=== PATIENT | female | born 1940 | race African-American/Black ===

== ENCOUNTER 2017-10-29 00:03 | Inpatient (IN) | payer MEDICARE, BC ==
[~2017-10-29] VITALS: Ht 157.5 cm; Wt 91.3 kg
[2017-10-29] VITALS (22 sets, daily range): BP systolic 97–171; BP diastolic 42–59
[2017-10-29 00:45] LABS: BASOPHILS % (AUTO) 1.2 % (0.0-2.0); EOSINOPHILS % (AUTO) 0.6 % (0.0-3.0); HEMATOCRIT 27.8 % (37.0-47.0); HEMOGLOBIN 8.9 G/DL (12.0-16.0); LYMPHOCYTES % (AUTO) 14.5 % (20.0-45.0); MEAN CORPUSCULAR VOLUME 89 FL (80-99); NEUTROPHILS % (AUTO) 75.8 % (45.0-75.0); PLATELET COUNT 486 K/UL (150-450); RED BLOOD COUNT 3.13 M/UL (4.20-5.40); RED CELL DISTRIBUTION WIDTH 13.9 % (11.6-14.8); WHITE BLOOD COUNT 11.8 K/UL (4.8-10.8)
[2017-10-29 00:59] LABS: ANION GAP 9 mmol/L (5-15); BLOOD UREA NITROGEN 38 mg/dL (7-18); CALCIUM 9.4 MG/DL (8.5-10.1); CARBON DIOXIDE 28 MMOL/L (21-32); CHLORIDE 94 MMOL/L (98-107); CREATININE 2.8 MG/DL (0.55-1.30); POTASSIUM 4.6 MMOL/L (3.5-5.1); SODIUM 130 MMOL/L (136-145)
[2017-10-29] MEDS ORDERED: Acetaminophen 500mg (ES) tab ORAL ONE (01:00)
[2017-10-29 01:06] LABS: ALANINE AMINOTRANSFERASE 26 U/L (12-78); ALBUMIN 2.7 G/DL (3.4-5.0); ALBUMIN/GLOBULIN RATIO 0.5 (1.0-2.7); ALKALINE PHOSPHATASE 146 U/L (46-116); ASPARTATE AMINO TRANSFERASE 25 U/L (15-37); BILIRUBIN,TOTAL 0.7 MG/DL (0.2-1.0); CKMB 1.5 NG/ML (0.0-3.6); CREATINE KINASE 79 U/L (26-308)
[2017-10-29] MEDS ORDERED: Etomidate 40mg/20ml Inj IV ONE ×2 (01:30→16:34)
[2017-10-29] MEDS ORDERED: Zemuron 50mg/5ml Inj IV ONE ×2 (01:30→16:34)
--- NOTE | 2017-10-29 01:44 | Emergency Room Report ---
History of Present Illness General Chief Complaint: Dyspnea/Respdistress Source: Patient Present Illness HPI 77-year-old female brought in by EMS from outside facility or shortness of breath. Patient was allegedly just admitted recently to outside hospital for pneumonia. Denies history of COPD, asthma, CHF shortness of breath, repeatedly saying "help me" and "I can't breather." History of present illness otherwise limited due to severity of patient and possible altered mental status 2 to hypercapnia Allergies: Coded Allergies: No Known Allergies (Verified , 09/30/07) Patient History Limited by: medical condition Past Medical History: old chart reviewed Past Surgical History: unable to obtain Pertinent Family History: unable to obtain Social History: Denies: smoking, alcohol use, drug use Now: No Immunizations: UTD Reviewed Nursing Documentation: PMH: Agreed, PSxH: Agreed Nursing Documentation-PMH Hx Hypertension: Yes Hx Diabetes: Yes Hx Cancer: Yes - LEFT BREAST LUMPECTOMY Review of Systems All Other Systems: limited - AMS Physical Exam Vital Signs Date Time Temp Pulse Resp B/P (MAP) Pulse Ox O2 Delivery O2 Flow Rate FiO2 10/29/17 00:16 101.1 95 26 170/48 84 Nasal Cannula 3.0 Sp02 EP Interpretation: reviewed, abnormal General Appearance: normal inspection, alert, non-toxic, moderate distress, obese Head: normocephalic, atraumatic Eyes: bilateral eye PERRL, bilateral eye EOMI ENT: normal ENT inspection, hearing grossly normal, normal pharynx, no angioedema, normal voice, TMs + canals normal, uvula midline, moist mucus membranes Neck: normal inspection, full range of motion, supple, thyroid normal, no meningismus, no bony tend Respiratory: normal inspection, respiratory distress, decreased breath sounds, accessory muscle use, rhonchi Cardiovascular #1: regular rate, rhythm, no edema, no JVD, normal capillary refill Gastrointestinal: normal inspection, normal bowel sounds, non tender, soft, no mass, no peritonitis, non-distended, no guarding, no hernia, no pulsatile mass Genitourinary: no CVA tenderness Musculoskeletal: normal inspection, back normal, normal range of motion, no calf tenderness, pelvis stable, Neal's Sign negative Neurologic: normal inspection, alert, oriented x3, responsive, 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 as tested, motor strength/tone normal, cerebellar normal, normal gait, speech normal Psychiatric: normal inspection, judgement/insight normal, mood/affect normal, no suicidal/homicidal ideation, no delusions Skin: normal inspection, normal color, no rash Lymphatic: normal inspection, no adenopathy Procedures Critical Care Time Critical Care Time CC time 40 min Critical care time endorsed for this patient for AMS likely d/t sepsis/PNA Critical care time includes review of laboratory tests, imaging, review of EMR, review of paperwork from SNF (if available), discussion with patient and family (if available), review of code status/POLS (if available). Critical care time also likely includes assessment of fluid status, stabilization of vital signs, selection and dosing of appropriate antibiotics, discussion with PMD/attending hospitalist/program eligibility specialist. Critical care time does not include any procedures which are documented elsewhere in this EMR. Intubation Intubation : Consent: Emergent Intubation Method: orotracheal Tube Size (cm): 7.5 Medications: Etomidate, Rocuronium Breath Sounds after Intubation: equal Intubation Complications: no complications Post Intubation Xray: Yes Attempts: One Patient Tolerated: Well Complications: None Progress Patient maintained O2 sat with nasal cannula supplemental O2 at 10L Medical Decision Making Diagnostic Impression: Primary Impression: Dyspnea Qualified Codes: R06.00 - Dyspnea, unspecified Additional Impressions: Sepsis Qualified Codes: A41.9 - Sepsis, unspecified organism PNA (pneumonia) Qualified Codes: J18.9 - Pneumonia, unspecified organism Respiratory failure Qualified Codes: J96.01 - Acute respiratory failure with hypoxia; J96.02 - Acute respiratory failure with hypercapnia CKD (chronic kidney disease) Qualified Codes: N18.9 - Chronic kidney disease, unspecified Acute respiratory acidosis ER Course Vital signs significant for fever, tachycardia and hypoxia, obtaining O2 sat of 90% with 10 L nonrebreather Sepsis criteria met ABG shows acute respiratory acidosis due to hypoxia and hypercapnia patient with declining mental status, requiring urgent intubation; high rate of 40 set on vent given hypercapnia and acidosis sHe was given empiric antibiotics for bilateral pneumonia on ED interpretation of x-ray Cultures are pending Labs also significant for mild leukocytosis, an elevated creatinine. Unknown if she has CKD history however the MR shows previous elevations in serum creatinine ECG showing ST depressions in inferior leads likely demand ischemia due to sepsis Patient was not given for 30 mL per KG fluid bolus processes protocol due to unknown EF and elderly age Endorsed to Dr. Sotomayor for ICU admission at 115am Sepsis reassessment 147am Following intubation HR 85, BP 134/55, temp 99, RR 40 on O2 sat 100% EKG Diagnostic Results Rate: tachycardiac Rhythm: NSR ST Segments: other - ?ST depressions in 2, 3, AVF Rhythm Strip Diag. Results EP Interpretation: yes Rate: 86 Rhythm: NSR, no ectopy Chest X-Ray Diagnostic Results Chest X-Ray Diagnostic Results : Chest X-Ray Ordered: Yes # of Views/Limited/Complete: 1 View Indication: Shortness of Breath EP Interpretation: Yes Interpretation: no pneumothorax, other - Bilateral PNA Last Vital Signs Date Time Temp Pulse Resp B/P (MAP) Pulse Ox O2 Delivery O2 Flow Rate FiO2 10/29/17 00:16 101.1 95 26 170/48 84 Nasal Cannula 3.0 Status: improved Disposition: ADMITTED INPATIENT Condition: Critical Referrals: NON PHYSICIAN (PCP) ANDREI BLACK M.D. Oct 29, 2017 01:44
[2017-10-29] MEDS ORDERED: UNOBMED (02:13)
[2017-10-29] MEDS ORDERED: Acetaminophen 650 MG SUPP RECTAL ONE (02:15)
[2017-10-29] MEDS ORDERED: Propofol 200mg/20ml IV ONE ×2 (03:00→03:15)
[2017-10-29 04:05] LABS: APPEARANCE,URINE CLEAR; BILIRUBIN, URINE NEGATIVE (NEGATIVE); COLOR,URINE PALE YELLOW; GLUCOSE, URINE (UA) NEGATIVE (NEGATIVE); KETONES,URINE NEGATIVE (NEGATIVE); LEUKOCYTE ESTERASE ,URINE NEGATIVE (NEGATIVE); NITRITE,URINE NEGATIVE (NEGATIVE); PH,URINE 5 (4.5-8.0); PROTEIN,URINE 2+ (NEGATIVE); UROBILINOGEN,URINE NORMAL MG/DL (0.0-1.0)
[2017-10-29] MEDS: 1/2NS w/KCl 20mEq 1000ml 1,000 ML IV SCH ×2 (09:49→21:58)
[2017-10-29] MEDS: Pantoprazole Inj IVP SCH (09:50)
[2017-10-29] MEDS: Cefepime HCl 1 GM in NS 55 ML IVPB SCH (09:50)
[2017-10-29] MEDS: Heparin 5000 units/ml inj SUBQ SCH ×2 (09:52→20:57)
[2017-10-29] MEDS: Albuterol ud Inhalation HHN SCH ×4 (11:00→23:13)
[2017-10-29] MEDS ORDERED: Vancomycin 1.5 GM/D5W 250ML IVPB ONE (11:00)
--- NOTE | 2017-10-29 12:32 | Diagnostic Imaging Report ---
Indication: Status post endotracheal tube placement Technique: One view of the chest Comparison: One hour earlier Findings: Interim endotracheal intubation, endotracheal tube tip in good position approximately 4 cm above the norma. Bilateral extensive and diffuse interstitial and alveolar disease persists. Suspect small bilateral pleural effusions. The heart is enlarged Impression: Satisfactory endotracheal intubation Stable diffuse bilateral parenchymal disease and small bilateral pleural effusions
--- NOTE | 2017-10-29 12:34 | Diagnostic Imaging Report ---
Indication: Shortness of breath Technique: One view of the chest Comparison: 09/29/2007 Findings: Interim development of bilateral diffuse interstitial and airspace opacities. The heart is borderline enlarged. There are small bilateral pleural effusions. Surgical clips are seen in the left axilla Impression: Bilateral diffuse interstitial and alveolar airspace infiltrates versus edema. Small bilateral pleural effusions
--- NOTE | 2017-10-29 15:30 | History and Physical Report ---
DATE OF ADMISSION: 10/29/2017 CHIEF COMPLAINT: Shortness of breath. HISTORY OF PRESENT ILLNESS: This is a 77-year-old female, who was brought in by the paramedics from home. The patient was just discharged from [facility] to her home. I do not have any medical records and there is no previous history. The patient herself is unable to converse. The patient developed full-blown respiratory failure and was intubated. PAST MEDICAL HISTORY: Currently unknown. HOME MEDICATIONS: Currently unavailable. ALLERGIES: No known drug allergies. FAMILY HISTORY: Unable to obtain. SOCIAL HISTORY: Unable to obtain. REVIEW OF SYSTEMS: Unable to obtain. PHYSICAL EXAMINATION: GENERAL: This is an elderly female, who is on a ventilator. VITAL SIGNS: Blood pressure is 97/55, pulse 72, respirations 30, and temperature 98.8. HEENT: Head is normocephalic and atraumatic. Pupils are equal, round, and reactive to light and accommodation consensually. NECK: Supple. Trachea midline. There was no lymphadenopathy or thyromegaly. LUNGS: Bilateral rhonchi. HEART: Regular rate and rhythm without rubs, murmurs, or gallops. ABDOMEN: Soft and nontender. Bowel sounds were active. EXTREMITIES: No clubbing, cyanosis, or edema. NEUROLOGIC: She is alert. There were no gross focal findings. LABORATORY AND ANCILLARY DATA: On admission, white count 11,800, hematocrit 27.8. Sodium 130, potassium 4.6, BUN 38, creatinine 2.8, and glucose 131. Troponin level 0.21. Lactic acid 1.8. Urinalysis negative. Chest x-ray reported to show bilateral infiltrates. ABGs done in the ED showed acute respiratory acidosis and hypoxia. A repeat ABGs are pending. EKG in the ED showed ST depressions in inferior leads. ASSESSMENT: 1. Acute respiratory failure due to pneumonia. 2. Bilateral pneumonia. PLAN: 1. IV antibiotics. 2. IV fluids. 3. Pulmonary consult. 4. Obtain medical records. Mic Maynard M.D. DR: HELLEN JOB#: [id number] CC:
--- NOTE | 2017-10-29 17:30 | Consultation ---
DATE OF CONSULTATION: 10/29/2017 PULMONARY CONSULTATION CONSULTING PHYSICIAN: Jose F Benitez M.D. REFERRING PHYSICIAN: Mic Maynard M.D. REASON FOR CONSULTATION: Respiratory failure, ventilatory management. HISTORY OF PRESENT ILLNESS: The patient is a 77-year-old female brought in by ambulance for increasing shortness of breath from a [facility]. The patient recently admitted for pneumonia. The patient has no underlying history of obstructive lung disease. The patient was noted to be in respiratory distress and noted to have significant hypercapnia. In the emergency room, the patient was noted to be significantly altered and admitted. The patient required intubation. Currently, the patient is in the ICU and I was called to assist, evaluate, and recommend further. The patient is unable to give much in the way of history. History was obtained from chart review, group home chart, and on discussion with the primary medical doctor. The patient's overall care discussed and reviewed. PAST MEDICAL HISTORY: Notable for underlying cardiac disease, history of breast cancer, history of diabetes, unclear as to vaccination history, history of hypertension, and prior history of pneumonia. PAST SURGICAL HISTORY: Notable for left breast lumpectomy. MEDICATIONS: Reviewed. ALLERGIES: Reviewed. SOCIAL HISTORY: The patient's habits unclear. No clear smoking and drinking per chart review. REVIEW OF SYSTEMS: Unobtainable due to the patient's present state. PHYSICAL EXAMINATION: VITAL SIGNS: An elderly female, poorly responsive. VITAL SIGNS: 142/80 respiratory rate 30, saturations 100% currently on 80% FiO2, temperature 98.8. T-max 99.8. HEENT: Negative. Orally intubated. NECK: Supple. No jugular venous distention. LUNGS: Scattered rhonchi. Moderate air entry. Somewhat reduced. CARDIAC: Normal S1 and S2. Regular rate and rhythm. Somewhat distant without clear murmurs, rubs, or gallops. ABDOMEN: Soft, nontender, nondistended. EXTREMITIES: No cyanosis or clubbing. NEUROLOGIC: Poorly responsive at present. SKIN: Noted and reviewed. LABORATORY DATA: Reviewed. White count 11.8, hemoglobin 8.9, hematocrit 27.8, and platelets 246,000. Sodium 130, potassium 4.6, BUN 38, creatinine 2.8. Albumin 2.7. Blood gases, pH 7.322, pCO2 44, pO2 191, bicarbonate 22, and saturations 98%. The EKG initially with sinus tachycardia with some T wave depressions possibly in the inferior leads. The x-ray with bilateral pneumonia. IMPRESSION: 1. Respiratory failure. 2. Bilateral pneumonia, possible aspiration, possible group home-acquired. 3. Hypoxemia. 4. Profound respiratory acidosis. 5. Acute respiratory failure, now mostly compensated. 6. Chronic renal failure. 7. Severe protein-calorie malnutrition. 8. Hyponatremia of unclear etiology. 9. Mild leukocytosis, possible sepsis. 10. Anemia. 11. Thrombocytosis. RECOMMENDATIONS: 1. Supportive care. 2. Ventilatory management and hyperventilate, presently on AC of 30, with adequate pH, we will reduce that pending reevaluation. 3. IV hydration. 4. Antibiotics started with Levaquin only. We will give additional IV antibiotics for group home pathogens. 5. Nutritional support. 6. Obtain dietary evaluation. 7. Place the patient on subcutaneous heparin. 8. Obtain venous ultrasound. 9. Follow up x-ray. 10. Follow up ABG.. 11. Sedation as needed. 12. Monitor in ICU. Jose F Benitez M.D. DR: KHOA JOB#: [id number] CC: RAFIA
--- NOTE | 2017-10-29 18:12 | Cardiology Report ---
APPROVED REPORT EXAM: Two-dimensional and M-mode echocardiogram with Doppler and color Doppler. INDICATION SOB M-Mode DIMENSIONS IVSd1.3 (0.7-1.1cm)Left Atrium (MM)2.9 (1.6-4.0cm) LVDd4.0 (3.5-5.6cm)Aortic Root3.3 (2.0-3.7cm) PWd0.9 (0.7-1.1cm)Aortic Cusp Exc.1.8 (1.5-2.0cm) IVSs1.8 cm LVDs2.4 (2.5-4.0cm) PWs1.1 cm Normal left ventricular chamber size, systolic function and wall motion. Left ventricular ejection fraction estimated to 70 %. No evidence of ventricular hypertrophy . No evidence of pericardial effusion. All other cardiac chamber sizes is within normal limits. Focal aortic valve sclerosis with adequate cusp excursion. Thickened mitral valve leaflets with normal excursion. Mitral annulus and aortic root calcification. Pulmonic valve not well visualized. Normal tricuspid valve structure. IVC dilated at size 2.4 without physiologic collapse . A color flow and spectral Doppler study was performed and revealed: Mild aortic insufficiency . Mild to moderate mitral regurgitation. Mitral diastolic velocities suggest reduced left ventricular relaxation c/w mild LV diastolic dysfunction (Grade I ) Mild tricuspid regurgitation. Tricuspid systolic velocities suggests peak right ventricular systolic pressure of 47 mmHg ,consistent with moderate, pulmonary hypertension. No Pulmonic regurgitation present.
[2017-10-30] VITALS (18 sets, daily range): BP systolic 99–150; BP diastolic 44–77
[2017-10-30] MEDS: Albuterol ud Inhalation HHN SCH ×6 (03:00→23:39)
[2017-10-30 04:48] LABS: HEMATOCRIT 23.5 % (37.0-47.0); HEMOGLOBIN 7.6 G/DL (12.0-16.0); MEAN CORPUSCULAR VOLUME 89 FL (80-99); PLATELET COUNT 387 K/UL (150-450); RED BLOOD COUNT 2.63 M/UL (4.20-5.40); RED CELL DISTRIBUTION WIDTH 14.2 % (11.6-14.8); WHITE BLOOD COUNT 10.2 K/UL (4.8-10.8)
[2017-10-30 05:09] LABS: ALANINE AMINOTRANSFERASE 43 U/L (12-78); ALBUMIN 2.2 G/DL (3.4-5.0); ALBUMIN/GLOBULIN RATIO 0.4 (1.0-2.7); ALKALINE PHOSPHATASE 121 U/L (46-116); ANION GAP 9 mmol/L (5-15); ASPARTATE AMINO TRANSFERASE 49 U/L (15-37); BILIRUBIN,TOTAL 0.5 MG/DL (0.2-1.0); BLOOD UREA NITROGEN 47 mg/dL (7-18); CARBON DIOXIDE 25 MMOL/L (21-32); CHLORIDE 96 MMOL/L (98-107); CREATININE 2.9 MG/DL (0.55-1.30); POTASSIUM 5.1 MMOL/L (3.5-5.1); SODIUM 130 MMOL/L (136-145)
[2017-10-30] MEDS ORDERED: Vancomycin 1gm inj IVPB ONE (05:59)
[2017-10-30] MEDS ORDERED: Vancomycin 1gm in D5W 275ml IVPB ONE (06:00)
--- NOTE | 2017-10-30 08:37 | Critical Care Progress Note ---
Assessment/Plan Assessment/Plan IMPRESSION: 1. Respiratory failure. 2. Bilateral pneumonia, possible aspiration, possible [facility]-acquired. 3. Hypoxemia. 4. Profound respiratory acidosis. 5. Acute respiratory failure, now mostly compensated. 6. Chronic renal failure. 7. Severe protein-calorie malnutrition. 8. Hyponatremia of unclear etiology. 9. Mild leukocytosis, possible sepsis. 10. Anemia. 11. Thrombocytosis. RECOMMENDATIONS: 1. Supportive care. 2. Ventilatory support off 3. IV hydration- hold for now 4. Antibiotics and monitor cultures 5. Nutritional support. 6. Obtain dietary evaluation and speech 7. subcutaneous heparin. 8. noted venous ultrasound. 9. Follow up x-ray. for change 10. Follow up ABG and monitor acid base 11. transfuse 12. Monitor in ICU. Critical Care - Subjective I&O: Intake and Output 10/29/17 10/30/17 19:00 07:00 Intake Total 980 ml 900 ml Output Total 375 ml 455 ml Balance 605 ml 445 ml IV Total 980 ml 900 ml Output Urine Total 375 ml 455 ml # Bowel Movements 3 3 Critical Care - Objective CXR: bilateral infiltrates ET-Tube: 7.5 ET Position: 24 Last 24 Hour Vital Signs Date Time Temp Pulse Resp B/P (MAP) Pulse Ox O2 Delivery O2 Flow Rate FiO2 10/30/17 08:00 98.0 85 20 135/77 99 Nasal Cannula 2.0 10/30/17 07:12 84 20 100 Nasal Cannula 4.0 36 10/30/17 07:00 81 23 140/49 100 Nasal Cannula 2.0 10/30/17 06:49 77 20 100 Nasal Cannula 4.0 36 10/30/17 06:45 76 20 Nasal Cannula 4.0 36 10/30/17 06:00 77 19 120/44 100 Nasal Cannula 2.0 10/30/17 05:00 79 23 122/47 99 Nasal Cannula 2.0 10/30/17 04:00 97.8 80 23 135/50 99 Nasal Cannula 2.0 10/30/17 04:00 80 10/30/17 03:27 Nasal Cannula 3.0 32 10/30/17 03:27 Nasal Cannula 4.0 36 10/30/17 03:00 79 19 122/46 100 Nasal Cannula 2.0 10/30/17 02:00 79 17 121/51 100 Nasal Cannula 2.0 10/30/17 01:00 82 17 99/46 100 Nasal Cannula 2.0 10/30/17 00:00 88 10/30/17 00:00 98.2 88 23 138/55 98 Nasal Cannula 2.0 10/29/17 23:14 86 21 100 Nasal Cannula 4.0 36 10/29/17 23:10 36 10/29/17 23:10 83 18 100 Nasal Cannula 3.0 32 10/29/17 23:00 81 21 145/54 100 Nasal Cannula 2.0 10/29/17 22:00 80 17 126/42 100 Nasal Cannula 2.0 10/29/17 21:00 85 20 117/52 99 Nasal Cannula 2.0 10/29/17 20:00 98.6 86 21 142/47 100 Nasal Cannula 2.0 10/29/17 20:00 86 10/29/17 19:24 86 19 100 Room Air 21 10/29/17 19:07 81 16 100 Room Air 21 10/29/17 19:07 36 10/29/17 19:00 81 20 Nasal Cannula 4.0 36 10/29/17 19:00 80 20 144/59 100 Nasal Cannula 2.0 10/29/17 16:00 82 10/29/17 14:53 82 16 98 Nasal Cannula 5.0 40 10/29/17 14:47 40 10/29/17 14:47 82 18 100 Venturi Mask 8.0 40 10/29/17 13:15 84 30 100 10/29/17 12:00 40 10/29/17 12:00 77 10/29/17 11:50 81 31 100 10/29/17 09:15 86 34 100 Labs: Labs Test 10/29/17 00:29 10/29/17 00:49 10/29/17 02:35 10/29/17 03:55 White Blood Count 11.8 K/UL (4.8-10.8) Red Blood Count 3.13 M/UL (4.20-5.40) Hemoglobin 8.9 G/DL (12.0-16.0) Hematocrit 27.8 % (37.0-47.0) Mean Corpuscular Volume 89 FL (80-99) Mean Corpuscular Hemoglobin 28.6 PG (27.0-31.0) Mean Corpuscular Hemoglobin Concent 32.2 G/DL (32.0-36.0) Red Cell Distribution Width 13.9 % (11.6-14.8) Platelet Count 486 K/UL (150-450) Mean Platelet Volume 6.4 FL (6.5-10.1) Neutrophils (%) (Auto) 75.8 % (45.0-75.0) Lymphocytes (%) (Auto) 14.5 % (20.0-45.0) Monocytes (%) (Auto) 8.0 % (1.0-10.0) Eosinophils (%) (Auto) 0.6 % (0.0-3.0) Basophils (%) (Auto) 1.2 % (0.0-2.0) Sodium Level 130 MMOL/L (136-145) Potassium Level 4.6 MMOL/L (3.5-5.1) Chloride Level 94 MMOL/L (98-107) Carbon Dioxide Level 28 MMOL/L (21-32) Anion Gap 9 mmol/L (5-15) Blood Urea Nitrogen 38 mg/dL (7-18) Creatinine 2.8 MG/DL (0.55-1.30) Estimat Glomerular Filtration Rate mL/min (>60) Glucose Level 131 MG/DL (74-106) Lactic Acid Level 1.80 mmol/L (0.66-2.22) Calcium Level 9.4 MG/DL (8.5-10.1) Total Bilirubin 0.7 MG/DL (0.2-1.0) Aspartate Amino Transf (AST/SGOT) 25 U/L (15-37) Alanine Aminotransferase (ALT/SGPT) 26 U/L (12-78) Alkaline Phosphatase 146 U/L (46-116) Total Creatine Kinase 79 U/L (26-308) Creatine Kinase MB 1.5 NG/ML (0.0-3.6) Creatine Kinase MB Relative Index 1.8 Troponin I 0.021 ng/mL (0.000-0.056) Total Protein 8.6 G/DL (6.4-8.2) Albumin 2.7 G/DL (3.4-5.0) Globulin 5.9 g/dL Albumin/Globulin Ratio 0.5 (1.0-2.7) Triglycerides Level 76 MG/DL (30-150) Arterial Blood pH 7.050 (7.350-7.450) 7.519 (7.350-7.450) Arterial Blood Partial Pressure CO2 102.8 mmHg (35.0-45.0) 29.6 mmHg (35.0-45.0) Arterial Blood Partial Pressure O2 68.5 mmHg (75.0-100.0) 423.2 mmHg (75.0-100.0) Arterial Blood HCO3 27.8 mmol/L (22.0-26.0) 23.6 mmol/L (22.0-26.0) Arterial Blood Oxygen Saturation 84.6 % (92.0-98.0) 99.4 % (92.0-98.0) Arterial Blood Base Excess -4.3 1.1 Nishant Test Positive Positive Urine Color Pale yellow Urine Appearance Clear Urine pH 5 (4.5-8.0) Urine Specific Rosebud 1.010 (1.005-1.035) Urine Protein 2+ (NEGATIVE) Urine Glucose (UA) Negative (NEGATIVE) Urine Ketones Negative (NEGATIVE) Urine Occult Blood Negative (NEGATIVE) Urine Nitrite Negative (NEGATIVE) Urine Bilirubin Negative (NEGATIVE) Urine Urobilinogen Normal MG/DL (0.0-1.0) Urine Leukocyte Esterase Negative (NEGATIVE) Urine RBC 0 /HPF (0 - 2) Urine WBC 0-2 /HPF (0 - 2) Urine Squamous Epithelial Cells Few /LPF (NONE/OCC) Urine Bacteria Few /HPF (NONE) Test 10/29/17 07:00 10/29/17 09:30 10/29/17 12:20 10/30/17 04:00 Arterial Blood pH 7.322 (7.350-7.450) 7.478 (7.350-7.450) Arterial Blood Partial Pressure CO2 44.6 mmHg (35.0-45.0) 35.3 mmHg (35.0-45.0) Arterial Blood Partial Pressure O2 191.1 mmHg (75.0-100.0) 127.6 mmHg (75.0-100.0) Arterial Blood HCO3 22.6 mmol/L (22.0-26.0) 25.6 mmol/L (22.0-26.0) Arterial Blood Oxygen Saturation 98.9 % (92.0-98.0) 98.3 % (92.0-98.0) Arterial Blood Base Excess -3.4 2.0 Nishant Test Positive Positive Magnesium Level 1.7 MG/DL (1.8-2.4) White Blood Count 10.2 K/UL (4.8-10.8) Red Blood Count 2.63 M/UL (4.20-5.40) Hemoglobin 7.6 G/DL (12.0-16.0) Hematocrit 23.5 % (37.0-47.0) Mean Corpuscular Volume 89 FL (80-99) Mean Corpuscular Hemoglobin 28.8 PG (27.0-31.0) Mean Corpuscular Hemoglobin Concent 32.2 G/DL (32.0-36.0) Red Cell Distribution Width 14.2 % (11.6-14.8) Platelet Count 387 K/UL (150-450) Mean Platelet Volume 6.5 FL (6.5-10.1) Neutrophils (%) (Auto) % (45.0-75.0) Lymphocytes (%) (Auto) % (20.0-45.0) Monocytes (%) (Auto) % (1.0-10.0) Eosinophils (%) (Auto) % (0.0-3.0) Basophils (%) (Auto) % (0.0-2.0) Sodium Level 130 MMOL/L (136-145) Potassium Level 5.1 MMOL/L (3.5-5.1) Chloride Level 96 MMOL/L (98-107) Carbon Dioxide Level 25 MMOL/L (21-32) Anion Gap 9 mmol/L (5-15) Blood Urea Nitrogen 47 mg/dL (7-18) Creatinine 2.9 MG/DL (0.55-1.30) Estimat Glomerular Filtration Rate mL/min (>60) Glucose Level 99 MG/DL (74-106) Calcium Level 9.0 MG/DL (8.5-10.1) Total Bilirubin 0.5 MG/DL (0.2-1.0) Aspartate Amino Transf (AST/SGOT) 49 U/L (15-37) Alanine Aminotransferase (ALT/SGPT) 43 U/L (12-78) Alkaline Phosphatase 121 U/L (46-116) Total Protein 7.3 G/DL (6.4-8.2) Albumin 2.2 G/DL (3.4-5.0) Globulin 5.1 g/dL Albumin/Globulin Ratio 0.4 (1.0-2.7) Random Vancomycin Level 16.6 ug/mL Objective: more alert HEENT: Negative. Orally intubated. NECK: Supple. No jugular venous distention. LUNGS: Some rhonchi. Moderate air entry. reduced. CARDIAC: Normal S1 and S2. Regular rate and rhythm. Somewhat distant without clear murmurs, rubs, or gallops. ABDOMEN: Soft, nontender, nondistended. no HSM EXTREMITIES: No cyanosis or clubbing. NEUROLOGIC: Poorly responsive at present. SKIN: Noted and reviewed. Micro: Microbiology Date/Time Source Procedure Growth Status 10/29/17 00:35 Blood Blood Culture - Preliminary NO GROWTH AFTER 24 HOURS Resulted 10/29/17 00:29 Blood Blood Culture - Preliminary NO GROWTH AFTER 24 HOURS Resulted 10/29/17 11:50 Sputum Gram Stain Pending Resulted 10/29/17 11:50 Sputum Sputum Culture - Preliminary NO GROWTH Resulted 10/29/17 03:55 Nasal Nares Influenza Types A,B Antigen (QIANA) - Final Complete Accucheck: 128 LOGAN PENN Oct 30, 2017 08:37
[2017-10-30] MEDS: Pantoprazole Inj IVP SCH (08:51)
[2017-10-30] MEDS: Heparin 5000 units/ml inj SUBQ SCH (08:52)
[2017-10-30] MEDS: Cefepime HCl 1 GM in NS 55 ML IVPB SCH (09:41)
--- NOTE | 2017-10-30 10:10 | Diagnostic Imaging Report ---
Indication: Reason For Exam: SOB Technique: One view of the chest Comparison: 10/29/2017 Findings: Again demonstrated is diffuse bilateral interstitial and airspace disease. This appears mostly improved, with in particular decreased consolidation in the left upper lung, although there is suggestion of slight worsening at the left lung base. Left-sided pleural fluid persistent. Heart remains borderline enlarged. The endotracheal tube has been removed Impression: Diffuse persistent bilateral interstitial and alveolar infiltrates versus edema, with overall slight improvement in general, but slight worsening of the left lung base Interim endotracheal extubation
--- NOTE | 2017-10-30 11:38 | General Progress Note ---
Assessment/Plan Assessment/Plan Resp. Failure - extubated. Severe anemia ? etiol. R/o GIB. Transfuse. OK for Tele. Subjective Allergies: Coded Allergies: No Known Allergies (Verified , 09/30/07) Subjective Extubated Objective Last 24 Hour Vital Signs Date Time Temp Pulse Resp B/P (MAP) Pulse Ox O2 Delivery O2 Flow Rate FiO2 10/30/17 11:23 87 20 98 Nasal Cannula 3.0 32 10/30/17 11:11 83 20 98 Nasal Cannula 3.0 32 10/30/17 11:00 83 16 133/55 98 Nasal Cannula 2.0 10/30/17 10:00 84 18 132/59 95 Nasal Cannula 2.0 10/30/17 09:00 82 19 141/49 100 Nasal Cannula 2.0 10/30/17 08:00 98.0 85 20 135/77 99 Nasal Cannula 2.0 10/30/17 08:00 88 10/30/17 07:12 84 20 100 Nasal Cannula 4.0 36 10/30/17 07:00 81 23 140/49 100 Nasal Cannula 2.0 10/30/17 06:49 77 20 100 Nasal Cannula 4.0 36 10/30/17 06:45 76 20 Nasal Cannula 4.0 36 10/30/17 06:00 77 19 120/44 100 Nasal Cannula 2.0 10/30/17 05:00 79 23 122/47 99 Nasal Cannula 2.0 10/30/17 04:00 97.8 80 23 135/50 99 Nasal Cannula 2.0 10/30/17 04:00 80 10/30/17 03:27 Nasal Cannula 3.0 32 10/30/17 03:27 Nasal Cannula 4.0 36 10/30/17 03:00 79 19 122/46 100 Nasal Cannula 2.0 10/30/17 02:00 79 17 121/51 100 Nasal Cannula 2.0 10/30/17 01:00 82 17 99/46 100 Nasal Cannula 2.0 10/30/17 00:00 88 10/30/17 00:00 98.2 88 23 138/55 98 Nasal Cannula 2.0 10/29/17 23:14 86 21 100 Nasal Cannula 4.0 36 10/29/17 23:10 36 10/29/17 23:10 83 18 100 Nasal Cannula 3.0 32 10/29/17 23:00 81 21 145/54 100 Nasal Cannula 2.0 10/29/17 22:00 80 17 126/42 100 Nasal Cannula 2.0 10/29/17 21:00 85 20 117/52 99 Nasal Cannula 2.0 10/29/17 20:00 98.6 86 21 142/47 100 Nasal Cannula 2.0 10/29/17 20:00 86 10/29/17 19:24 86 19 100 Room Air 21 10/29/17 19:07 81 16 100 Room Air 21 10/29/17 19:07 36 10/29/17 19:00 81 20 Nasal Cannula 4.0 36 10/29/17 19:00 80 20 144/59 100 Nasal Cannula 2.0 10/29/17 16:00 82 10/29/17 14:53 82 16 98 Nasal Cannula 5.0 40 10/29/17 14:47 40 10/29/17 14:47 82 18 100 Venturi Mask 8.0 40 10/29/17 13:15 84 30 100 10/29/17 12:00 40 10/29/17 12:00 77 10/29/17 11:50 81 31 100 Intake and Output 10/29/17 10/30/17 19:00 07:00 Intake Total 980 ml 900 ml Output Total 375 ml 455 ml Balance 605 ml 445 ml IV Total 980 ml 900 ml Output Urine Total 375 ml 455 ml # Bowel Movements 3 3 Laboratory Tests 10/29/17 12:20: Arterial Blood pH 7.478H, Arterial Blood Partial Pressure CO2 35.3, Arterial Blood Partial Pressure O2 127.6H, Arterial Blood HCO3 25.6, Arterial Blood Oxygen Saturation 98.3H, Arterial Blood Base Excess 2.0, Nishant Test Positive 10/30/17 04:00: White Blood Count 10.2, Red Blood Count 2.63L, Hemoglobin 7.6L, Hematocrit 23.5L , Mean Corpuscular Volume 89, Mean Corpuscular Hemoglobin 28.8, Mean Corpuscular Hemoglobin Concent 32.2, Red Cell Distribution Width 14.2, Platelet Count 387, Mean Platelet Volume 6.5, Neutrophils (%) (Auto) , Lymphocytes (%) ( Auto) , Monocytes (%) (Auto) , Eosinophils (%) (Auto) , Basophils (%) (Auto) , Differential Total Cells Counted 100, Neutrophils % (Manual) 73, Lymphocytes % ( Manual) 18L, Monocytes % (Manual) 9, Eosinophils % (Manual) 0, Basophils % ( Manual) 0, Band Neutrophils 0, Platelet Estimate Adequate, Platelet Morphology Normal, Hypochromasia 1+, Sodium Level 130L, Potassium Level 5.1, Chloride Level 96L, Carbon Dioxide Level 25, Anion Gap 9, Blood Urea Nitrogen 47H, Creatinine 2.9H, Estimat Glomerular Filtration Rate , Glucose Level 99, Calcium Level 9.0, Total Bilirubin 0.5, Aspartate Amino Transf (AST/SGOT) 49H, Alanine Aminotransferase (ALT/SGPT) 43, Alkaline Phosphatase 121H, Total Protein 7.3, Albumin 2.2L, Globulin 5.1, Albumin/Globulin Ratio 0.4L, Random Vancomycin Level 16.6 10/30/17 08:30: Arterial Blood pH 7.337L, Arterial Blood Partial Pressure CO2 44.4, Arterial Blood Partial Pressure O2 95.6, Arterial Blood HCO3 23.3, Arterial Blood Oxygen Saturation 96.1, Arterial Blood Base Excess -2.4, Nishant Test Positive Height (Feet): 5 Height (Inches): 2.00 Weight (Pounds): 180 Objective CV RR Lungs CTa Abd SNT. BS + E No CCE ANU DURAND Oct 30, 2017 11:38
[2017-10-30] MEDS ORDERED: Tubing IV Secondary IV ONE (15:01)
[2017-10-30] MEDS ORDERED: NS 500ML ONE (15:01)
[2017-10-30] MEDS ORDERED: LOSARTAN POTASS50 MG ORAL (15:47)
[2017-10-30] MEDS ORDERED: LANTUS SOL100 UNIT/1 SUBQ (15:47)
[2017-10-30] MEDS ORDERED: HYDRALAZINE HCL50 MG ORAL (15:47)
[2017-10-30] MEDS ORDERED: ATORVASTATIN CA40 MG ORAL (15:47)
[2017-10-30] MEDS ORDERED: ATENOLOL100 MG ORAL (15:47)
[2017-10-30] MEDS ORDERED: Atorvastatin 20mg tab ORAL SCH (21:00)
[2017-10-30] MEDS ORDERED: Heparin 5000 units/ml inj SUBQ SCH (21:00)
[2017-10-31] VITALS (19 sets, daily range): BP systolic 104–182; BP diastolic 41–81
[2017-10-31] MEDS ORDERED: FOSAMAX70 MG ORAL (01:48)
[2017-10-31] MEDS ORDERED: METHIMAZOLE5 MG PO (01:48)
[2017-10-31] MEDS ORDERED: ALPHA LIPOIC A300 MG PO (01:48)
[2017-10-31] MEDS ORDERED: AMLODIPINE BESY10 MG ORAL (01:48)
[2017-10-31] MEDS ORDERED: FISH OIL 500 M1 EAC1 PO (01:48)
[2017-10-31] MEDS ORDERED: ALLOPURINOL100 M1 ORAL (01:48)
[2017-10-31] MEDS: Albuterol ud Inhalation HHN SCH ×2 (04:31→06:46)
[2017-10-31 08:32] LABS: HEMATOCRIT 37.3 % (37.0-47.0); HEMOGLOBIN 11.9 G/DL (12.0-16.0); MEAN CORPUSCULAR VOLUME 91 FL (80-99); PLATELET COUNT 524 K/UL (150-450); RED BLOOD COUNT 4.09 M/UL (4.20-5.40); RED CELL DISTRIBUTION WIDTH 13.9 % (11.6-14.8)
[2017-10-31 08:40] LABS: INR 1.2 (0.9-1.1)
[2017-10-31] MEDS ORDERED: Albuterol/Ipratropium 3ml neb HHN SCH (08:45)
[2017-10-31 08:47] LABS: WHITE BLOOD COUNT 24.5 K/UL (4.8-10.8)
[2017-10-31] MEDS ORDERED: Pantoprazole Inj IVP SCH (09:00)
[2017-10-31] MEDS ORDERED: Losartan 50mg tab ORAL SCH (09:00)
--- NOTE | 2017-10-31 09:02 | Critical Care Progress Note ---
Assessment/Plan Assessment/Plan IMPRESSION: 1. Respiratory failure. 2. Bilateral pneumonia, possible aspiration, possible prison-acquired. 3. Hypoxemia. 4. Profound respiratory acidosis. 5. Acute respiratory failure, now mostly compensated. 6. Chronic renal failure. 7. Severe protein-calorie malnutrition. 8. Hyponatremia of unclear etiology. 9. Mild leukocytosis, possible sepsis. 10. Anemia. 11. Thrombocytosis. RECOMMENDATIONS: 1. Supportive care. 2. Ventilatory support needed- needs intubate 3. lasix 4. Antibiotics and monitor cultures 5. Nutritional support- will place NGT 6. Obtain dietary evaluation 7. subcutaneous heparin. 8. noted venous ultrasound. 9. Follow up x-ray. for change 10. Follow up ABG post intubation 11. transfuse as needed 12. Monitor in ICU. medications/laboratory data/nursing notes/ICU care reviewed in detail note reviewed and edited care discussed with RN and RT ICU time spent 38 minutes Critical Care - Subjective Interval Events: noted to have significant respiratory distress significant acidosis hypoxemia obtunded Condition: critical EKG Rhythm: Sinus Rhythm I&O: Intake and Output 10/30/17 10/31/17 19:00 07:00 Intake Total 205 ml 120 ml Output Total 1060 ml 1100 ml Balance -855 ml -980 ml Intake Oral 75 ml 120 ml IV Total 130 ml Output Urine Total 1060 ml 1100 ml # Bowel Movements 1 Critical Care - Objective CXR: pulmonary edema ET-Tube: 7.5 ET Position: 24 Last 24 Hour Vital Signs Date Time Temp Pulse Resp B/P (MAP) Pulse Ox O2 Delivery O2 Flow Rate FiO2 10/31/17 06:48 97 22 90 Nasal Cannula 4.0 36 10/31/17 06:48 90 Nasal Cannula 4.0 36 10/31/17 06:48 Nasal Cannula 4.0 36 10/31/17 04:12 97 10/31/17 04:00 98 20 97 Nasal Cannula 3.0 32 10/31/17 04:00 92 20 94 Nasal Cannula 4.0 36 10/31/17 04:00 97.7 95 20 150/63 92 Nasal Cannula 2.0 10/31/17 02:37 98.9 10/31/17 00:00 100.1 99 20 141/62 92 Nasal Cannula 2.0 10/30/17 23:48 97 10/30/17 23:43 94 20 98 Nasal Cannula 4.0 36 10/30/17 23:40 98 20 96 Nasal Cannula 3.0 32 10/30/17 20:00 98.4 93 20 150/68 93 Nasal Cannula 2.0 10/30/17 19:43 92 10/30/17 19:30 94 20 Nasal Cannula 4.0 36 10/30/17 19:30 96 20 94 Nasal Cannula 4.0 36 10/30/17 19:30 94 20 93 Nasal Cannula 3.0 32 10/30/17 16:20 98.2 90 18 130/55 95 Nasal Cannula 2.0 10/30/17 16:00 98.4 84 18 137/50 99 Nasal Cannula 2.0 10/30/17 16:00 77 10/30/17 14:53 84 20 99 Nasal Cannula 3.0 32 10/30/17 14:43 85 18 98 Nasal Cannula 3.0 32 10/30/17 14:00 85 23 125/60 98 Nasal Cannula 2.0 10/30/17 14:00 85 18 127/60 98 Nasal Cannula 2.0 10/30/17 13:00 83 16 122/53 98 Nasal Cannula 2.0 10/30/17 13:00 86 21 134/54 98 Nasal Cannula 2.0 10/30/17 12:00 98.2 84 18 126/50 97 Nasal Cannula 2.0 10/30/17 12:00 85 10/30/17 11:23 87 20 98 Nasal Cannula 3.0 32 10/30/17 11:11 83 20 98 Nasal Cannula 3.0 32 10/30/17 11:00 83 16 133/55 98 Nasal Cannula 2.0 10/30/17 10:00 84 18 132/59 95 Nasal Cannula 2.0 10/30/17 09:00 82 19 141/49 100 Nasal Cannula 2.0 Labs: Labs Test 10/29/17 00:29 10/29/17 00:49 10/29/17 02:35 10/29/17 03:55 White Blood Count 11.8 K/UL (4.8-10.8) Red Blood Count 3.13 M/UL (4.20-5.40) Hemoglobin 8.9 G/DL (12.0-16.0) Hematocrit 27.8 % (37.0-47.0) Mean Corpuscular Volume 89 FL (80-99) Mean Corpuscular Hemoglobin 28.6 PG (27.0-31.0) Mean Corpuscular Hemoglobin Concent 32.2 G/DL (32.0-36.0) Red Cell Distribution Width 13.9 % (11.6-14.8) Platelet Count 486 K/UL (150-450) Mean Platelet Volume 6.4 FL (6.5-10.1) Neutrophils (%) (Auto) 75.8 % (45.0-75.0) Lymphocytes (%) (Auto) 14.5 % (20.0-45.0) Monocytes (%) (Auto) 8.0 % (1.0-10.0) Eosinophils (%) (Auto) 0.6 % (0.0-3.0) Basophils (%) (Auto) 1.2 % (0.0-2.0) Sodium Level 130 MMOL/L (136-145) Potassium Level 4.6 MMOL/L (3.5-5.1) Chloride Level 94 MMOL/L (98-107) Carbon Dioxide Level 28 MMOL/L (21-32) Anion Gap 9 mmol/L (5-15) Blood Urea Nitrogen 38 mg/dL (7-18) Creatinine 2.8 MG/DL (0.55-1.30) Estimat Glomerular Filtration Rate mL/min (>60) Glucose Level 131 MG/DL (74-106) Lactic Acid Level 1.80 mmol/L (0.66-2.22) Calcium Level 9.4 MG/DL (8.5-10.1) Total Bilirubin 0.7 MG/DL (0.2-1.0) Aspartate Amino Transf (AST/SGOT) 25 U/L (15-37) Alanine Aminotransferase (ALT/SGPT) 26 U/L (12-78) Alkaline Phosphatase 146 U/L (46-116) Total Creatine Kinase 79 U/L (26-308) Creatine Kinase MB 1.5 NG/ML (0.0-3.6) Creatine Kinase MB Relative Index 1.8 Troponin I 0.021 ng/mL (0.000-0.056) Total Protein 8.6 G/DL (6.4-8.2) Albumin 2.7 G/DL (3.4-5.0) Globulin 5.9 g/dL Albumin/Globulin Ratio 0.5 (1.0-2.7) Triglycerides Level 76 MG/DL (30-150) Arterial Blood pH 7.050 (7.350-7.450) 7.519 (7.350-7.450) Arterial Blood Partial Pressure CO2 102.8 mmHg (35.0-45.0) 29.6 mmHg (35.0-45.0) Arterial Blood Partial Pressure O2 68.5 mmHg (75.0-100.0) 423.2 mmHg (75.0-100.0) Arterial Blood HCO3 27.8 mmol/L (22.0-26.0) 23.6 mmol/L (22.0-26.0) Arterial Blood Oxygen Saturation 84.6 % (92.0-98.0) 99.4 % (92.0-98.0) Arterial Blood Base Excess -4.3 1.1 Nishant Test Positive Positive Urine Color Pale yellow Urine Appearance Clear Urine pH 5 (4.5-8.0) Urine Specific [place] 1.010 (1.005-1.035) Urine Protein 2+ (NEGATIVE) Urine Glucose (UA) Negative (NEGATIVE) Urine Ketones Negative (NEGATIVE) Urine Occult Blood Negative (NEGATIVE) Urine Nitrite Negative (NEGATIVE) Urine Bilirubin Negative (NEGATIVE) Urine Urobilinogen Normal MG/DL (0.0-1.0) Urine Leukocyte Esterase Negative (NEGATIVE) Urine RBC 0 /HPF (0 - 2) Urine WBC 0-2 /HPF (0 - 2) Urine Squamous Epithelial Cells Few /LPF (NONE/OCC) Urine Bacteria Few /HPF (NONE) Test 10/29/17 07:00 10/29/17 09:30 10/29/17 12:20 10/30/17 04:00 Arterial Blood pH 7.322 (7.350-7.450) 7.478 (7.350-7.450) Arterial Blood Partial Pressure CO2 44.6 mmHg (35.0-45.0) 35.3 mmHg (35.0-45.0) Arterial Blood Partial Pressure O2 191.1 mmHg (75.0-100.0) 127.6 mmHg (75.0-100.0) Arterial Blood HCO3 22.6 mmol/L (22.0-26.0) 25.6 mmol/L (22.0-26.0) Arterial Blood Oxygen Saturation 98.9 % (92.0-98.0) 98.3 % (92.0-98.0) Arterial Blood Base Excess -3.4 2.0 Nishant Test Positive Positive Magnesium Level 1.7 MG/DL (1.8-2.4) White Blood Count 10.2 K/UL (4.8-10.8) Red Blood Count 2.63 M/UL (4.20-5.40) Hemoglobin 7.6 G/DL (12.0-16.0) Hematocrit 23.5 % (37.0-47.0) Mean Corpuscular Volume 89 FL (80-99) Mean Corpuscular Hemoglobin 28.8 PG (27.0-31.0) Mean Corpuscular Hemoglobin Concent 32.2 G/DL (32.0-36.0) Red Cell Distribution Width 14.2 % (11.6-14.8) Platelet Count 387 K/UL (150-450) Mean Platelet Volume 6.5 FL (6.5-10.1) Neutrophils (%) (Auto) % (45.0-75.0) Lymphocytes (%) (Auto) % (20.0-45.0) Monocytes (%) (Auto) % (1.0-10.0) Eosinophils (%) (Auto) % (0.0-3.0) Basophils (%) (Auto) % (0.0-2.0) Differential Total Cells Counted 100 Neutrophils % (Manual) 73 % (45-75) Lymphocytes % (Manual) 18 % (20-45) Monocytes % (Manual) 9 % (1-10) Eosinophils % (Manual) 0 % (0-3) Basophils % (Manual) 0 % (0-2) Band Neutrophils 0 % (0-8) Platelet Estimate Adequate Platelet Morphology Normal Hypochromasia 1+ Sodium Level 130 MMOL/L (136-145) Potassium Level 5.1 MMOL/L (3.5-5.1) Chloride Level 96 MMOL/L (98-107) Carbon Dioxide Level 25 MMOL/L (21-32) Anion Gap 9 mmol/L (5-15) Blood Urea Nitrogen 47 mg/dL (7-18) Creatinine 2.9 MG/DL (0.55-1.30) Estimat Glomerular Filtration Rate mL/min (>60) Glucose Level 99 MG/DL (74-106) Calcium Level 9.0 MG/DL (8.5-10.1) Total Bilirubin 0.5 MG/DL (0.2-1.0) Aspartate Amino Transf (AST/SGOT) 49 U/L (15-37) Alanine Aminotransferase (ALT/SGPT) 43 U/L (12-78) Alkaline Phosphatase 121 U/L (46-116) Total Protein 7.3 G/DL (6.4-8.2) Albumin 2.2 G/DL (3.4-5.0) Globulin 5.1 g/dL Albumin/Globulin Ratio 0.4 (1.0-2.7) Random Vancomycin Level 16.6 ug/mL Test 10/30/17 08:30 10/31/17 08:00 10/31/17 08:10 Arterial Blood pH 7.337 (7.350-7.450) 7.030 (7.350-7.450) Arterial Blood Partial Pressure CO2 44.4 mmHg (35.0-45.0) 97.2 mmHg (35.0-45.0) Arterial Blood Partial Pressure O2 95.6 mmHg (75.0-100.0) 80.3 mmHg (75.0-100.0) Arterial Blood HCO3 23.3 mmol/L (22.0-26.0) 25.1 mmol/L (22.0-26.0) Arterial Blood Oxygen Saturation 96.1 % (92.0-98.0) 90.2 % (92.0-98.0) Arterial Blood Base Excess -2.4 -7.6 Nishant Test Positive Positive White Blood Count 24.5 K/UL (4.8-10.8) Red Blood Count 4.09 M/UL (4.20-5.40) Hemoglobin 11.9 G/DL (12.0-16.0) Hematocrit 37.3 % (37.0-47.0) Mean Corpuscular Volume 91 FL (80-99) Mean Corpuscular Hemoglobin 29.2 PG (27.0-31.0) Mean Corpuscular Hemoglobin Concent 32.0 G/DL (32.0-36.0) Red Cell Distribution Width 13.9 % (11.6-14.8) Platelet Count 524 K/UL (150-450) Mean Platelet Volume 5.8 FL (6.5-10.1) Neutrophils (%) (Auto) % (45.0-75.0) Lymphocytes (%) (Auto) % (20.0-45.0) Monocytes (%) (Auto) % (1.0-10.0) Eosinophils (%) (Auto) % (0.0-3.0) Basophils (%) (Auto) % (0.0-2.0) Prothrombin Time 12.6 SEC (9.30-11.50) Prothromb Time International Ratio 1.2 (0.9-1.1) Activated Partial Thromboplast Time 31 SEC (23-33) Objective: more alert HEENT: Negative. extubated but now obtunded NECK: Supple. No jugular venous distention. LUNGS: scattered rhonchi. reduced air entry. reduced. CARDIAC: Normal S1 and S2. Regular rate and rhythm. Somewhat distant without clear murmurs, rubs, or gallops. ABDOMEN: Soft, nontender, nondistended. no HSM EXTREMITIES: No cyanosis or clubbing. NEUROLOGIC: Poorly responsive at present. SKIN: Noted and reviewed. Micro: Microbiology Date/Time Source Procedure Growth Status 10/29/17 09:30 Blood Blood Culture - Preliminary NO GROWTH AFTER 24 HOURS Resulted 10/29/17 09:30 Blood Blood Culture - Preliminary NO GROWTH AFTER 24 HOURS Resulted 10/29/17 00:35 Blood Blood Culture - Preliminary NO GROWTH AFTER 48 HOURS Resulted 10/29/17 00:29 Blood Blood Culture - Preliminary NO GROWTH AFTER 48 HOURS Resulted 10/29/17 11:50 Sputum Gram Stain - Final Complete 10/29/17 11:50 Sputum Sputum Culture - Final NORMAL UPPER RESPIRATORY ANSLEY PRESENT Complete 10/29/17 03:55 Nasal Nares Influenza Types A,B Antigen (QIANA) - Final Complete Accucheck: 128 [address]AN [address] Oct 31, 2017 09:02
--- NOTE | 2017-10-31 09:11 | Emergency Room Report ---
History of Present Illness General Chief Complaint: Dyspnea/Respdistress Source: Medical Record Present Illness Allergies: Coded Allergies: No Known Allergies (Verified , 09/30/07) Patient History Now: No Nursing Documentation-[facility] Past Medical History Deferred: Pt Cognitively Impaired Past Medical History: No History, Except For Hx Cardiac Problems: Yes Hx Hypertension: Yes Hx Diabetes: Yes Hx Cancer: Yes Hx Gastrointestinal Problems: No Hx Neurological Problems: No Physical Exam Vital Signs Date Time Temp Pulse Resp B/P (MAP) Pulse Ox O2 Delivery O2 Flow Rate FiO2 10/29/17 00:16 101.1 95 26 170/48 84 Nasal Cannula 3.0 10/29/17 01:32 100 Procedures Critical Care Time Critical Care Time CC time 30 minutes Critical care time endorsed for this patient for acute respiratory failure. Called by Dr Benitez to 207 to evaluate patient who was receently extubated after I had initially intubated her in ED for respiratory failure Critical care time includes review of laboratory tests, imaging, review of EMR, review of paperwork from SNF (if available), discussion with patient and family (if available), review of code status/POLS (if available). Critical care time does not include any procedures which are documented elsewhere in this EMR. Intubation Intubation : Consent: Emergent Intubation Method: orotracheal Tube Size (cm): 7.5 Medications: Etomidate, Rocuronium Breath Sounds after Intubation: equal Intubation Complications: no complications Post Intubation Xray: Yes Attempts: One Patient Tolerated: Well Complications: None Medical Decision Making Diagnostic Impression: Primary Impression: Dyspnea Qualified Codes: R06.00 - Dyspnea, unspecified Additional Impressions: PNA (pneumonia) Qualified Codes: J18.9 - Pneumonia, unspecified organism CKD (chronic kidney disease) Qualified Codes: N18.9 - Chronic kidney disease, unspecified Respiratory failure Qualified Codes: J96.01 - Acute respiratory failure with hypoxia; J96.02 - Acute respiratory failure with hypercapnia Sepsis Qualified Codes: A41.9 - Sepsis, unspecified organism Acute respiratory acidosis ER Course ABG shows recurred respiratory acidosis, hypercapnia Evaluated in room 207, altered mental status Patient being bagged O2 sat 87% I bagged patient to 100% then emergently intubated with RSI meds with successful first pass Ordered CXR Informed Dr Benitez Patient transferred to ICU Last Vital Signs Date Time Temp Pulse Resp B/P (MAP) Pulse Ox O2 Delivery O2 Flow Rate FiO2 10/31/17 06:48 97 22 90 Nasal Cannula 4.0 36 10/31/17 04:00 97.7 150/63 Status: improved Disposition: ADMITTED INPATIENT Condition: Critical Referrals: NON PHYSICIAN (PCP) ANDREI BLACK M.D. Oct 31, 2017 09:11
[2017-10-31 09:31] LABS: ALANINE AMINOTRANSFERASE 86 U/L (12-78); ALBUMIN 2.5 G/DL (3.4-5.0); ALBUMIN/GLOBULIN RATIO 0.4 (1.0-2.7); ALKALINE PHOSPHATASE 163 U/L (46-116); ANION GAP 8 mmol/L (5-15); ASPARTATE AMINO TRANSFERASE 66 U/L (15-37); BILIRUBIN,TOTAL 1.1 MG/DL (0.2-1.0); BLOOD UREA NITROGEN 40 mg/dL (7-18); CALCIUM 9.7 MG/DL (8.5-10.1); CARBON DIOXIDE 26 MMOL/L (21-32); CHLORIDE 101 MMOL/L (98-107); CREATININE 2.2 MG/DL (0.55-1.30); FERRITIN 824 NG/ML (8-388); POTASSIUM 5.1 MMOL/L (3.5-5.1); SODIUM 135 MMOL/L (136-145)
--- NOTE | 2017-10-31 09:56 | General Progress Note ---
Assessment/Plan Assessment/Plan Resp. Failure - reintubated. Episode # 3!! Needs trach? Severe anemia ? etiol. R/o GIB. Transfuse.GI w/u Subjective Allergies: Coded Allergies: No Known Allergies (Verified , 09/30/07) Subjective Patient reintubate on Telemetry floor due to spontaneous Respiratory Failure without relation to food. ER MD was called. I was not called during the whole episode until the patient arrived in ICU. Objective Last 24 Hour Vital Signs Date Time Temp Pulse Resp B/P (MAP) Pulse Ox O2 Delivery O2 Flow Rate FiO2 10/31/17 09:27 112 20 Mechanical Ventilator 100 10/31/17 09:27 112 20 100 10/31/17 08:00 98.2 112 34 104/81 92 Non-Rebreather 15.0 10/31/17 06:48 97 22 90 Nasal Cannula 4.0 36 10/31/17 06:48 90 Nasal Cannula 4.0 36 10/31/17 06:48 Nasal Cannula 4.0 36 10/31/17 04:12 97 10/31/17 04:00 98 20 97 Nasal Cannula 3.0 32 10/31/17 04:00 92 20 94 Nasal Cannula 4.0 36 10/31/17 04:00 97.7 95 20 150/63 92 Nasal Cannula 2.0 10/31/17 02:37 98.9 10/31/17 00:00 100.1 99 20 141/62 92 Nasal Cannula 2.0 10/30/17 23:48 97 10/30/17 23:43 94 20 98 Nasal Cannula 4.0 36 10/30/17 23:40 98 20 96 Nasal Cannula 3.0 32 10/30/17 20:00 98.4 93 20 150/68 93 Nasal Cannula 2.0 10/30/17 19:43 92 10/30/17 19:30 94 20 Nasal Cannula 4.0 36 10/30/17 19:30 96 20 94 Nasal Cannula 4.0 36 10/30/17 19:30 94 20 93 Nasal Cannula 3.0 32 10/30/17 16:20 98.2 90 18 130/55 95 Nasal Cannula 2.0 10/30/17 16:00 98.4 84 18 137/50 99 Nasal Cannula 2.0 10/30/17 16:00 77 10/30/17 14:53 84 20 99 Nasal Cannula 3.0 32 10/30/17 14:43 85 18 98 Nasal Cannula 3.0 32 10/30/17 14:00 85 23 125/60 98 Nasal Cannula 2.0 10/30/17 14:00 85 18 127/60 98 Nasal Cannula 2.0 10/30/17 13:00 83 16 122/53 98 Nasal Cannula 2.0 10/30/17 13:00 86 21 134/54 98 Nasal Cannula 2.0 10/30/17 12:00 98.2 84 18 126/50 97 Nasal Cannula 2.0 10/30/17 12:00 85 10/30/17 11:23 87 20 98 Nasal Cannula 3.0 32 10/30/17 11:11 83 20 98 Nasal Cannula 3.0 32 10/30/17 11:00 83 16 133/55 98 Nasal Cannula 2.0 10/30/17 10:00 84 18 132/59 95 Nasal Cannula 2.0 Intake and Output 10/30/17 10/31/17 19:00 07:00 Intake Total 205 ml 120 ml Output Total 1060 ml 1100 ml Balance -855 ml -980 ml Intake Oral 75 ml 120 ml IV Total 130 ml Output Urine Total 1060 ml 1100 ml # Bowel Movements 1 Laboratory Tests 10/31/17 08:00: White Blood Count 24.5#*H, Red Blood Count 4.09L, Hemoglobin 11.9#L, Hematocrit 37.3#, Mean Corpuscular Volume 91, Mean Corpuscular Hemoglobin 29.2, Mean Corpuscular Hemoglobin Concent 32.0, Red Cell Distribution Width 13.9, Platelet Count 524H, Mean Platelet Volume 5.8L, Neutrophils (%) (Auto) , Lymphocytes (%) (Auto) , Monocytes (%) (Auto) , Eosinophils (%) (Auto) , Basophils (%) (Auto) , Differential Total Cells Counted 100, Neutrophils % (Manual) 85H, Lymphocytes % (Manual) 10L, Monocytes % (Manual) 2, Eosinophils % (Manual) 1, Basophils % ( Manual) 0, Metamyelocytes % 1H, Band Neutrophils 1, Nucleated Red Blood Cells 2 , Platelet Estimate IncreasedH, Platelet Morphology Normal, Reticulocyte Count [ Pending], Prothrombin Time 12.6H, Prothromb Time International Ratio 1.2H, Activated Partial Thromboplast Time 31, Sodium Level [Pending], Potassium Level [Pending], Chloride Level [Pending], Carbon Dioxide Level [Pending], Blood Urea Nitrogen [Pending], Creatinine [Pending], Estimat Glomerular Filtration Rate [ Pending], Glucose Level [Pending], Calcium Level [Pending], Iron Level [Pending] , Unsaturated Iron Binding [Pending], Ferritin [Pending], Total Bilirubin [ Pending], Aspartate Amino Transf (AST/SGOT) [Pending], Alanine Aminotransferase (ALT/SGPT) [Pending], Alkaline Phosphatase [Pending], Total Protein [Pending], Albumin [Pending], Globulin [Pending], Vitamin B12 Level [Pending], Folate [ Pending], Thyroid Stimulating Hormone (TSH) [Pending], Free Thyroxine 1.41 10/31/17 08:10: Arterial Blood pH 7.030*L, Arterial Blood Partial Pressure CO2 97.2*H, Arterial Blood Partial Pressure O2 80.3, Arterial Blood HCO3 25.1, Arterial Blood Oxygen Saturation 90.2L, Arterial Blood Base Excess -7.6, Nishant Test Positive Height (Feet): 5 Height (Inches): 2.00 Weight (Pounds): 180 Objective Intubated + on vent. CV RR Lungs B ronchi + wheezes Abd SNT. BS + E No CCE ANU DURAND Oct 31, 2017 09:56
[2017-10-31] MEDS: Cefepime HCl 1 GM in NS 55 ML IVPB SCH (10:00)
[2017-10-31] MEDS ORDERED: Cefepime HCl 1 GM in NS 55 ML IVPB SCH (10:00)
[2017-10-31 10:01] LABS: BILIRUBIN,DIRECT 0.5 MG/DL (0.0-0.3)
[2017-10-31 10:18] LABS: % IRON SATURATION 26 % (15-50); IRON 58 ug/dL (50-175); TOTAL IRON BINDING CAPACITY 225 ug/dL (250-450)
--- NOTE | 2017-10-31 10:41 | GI Initial Consult Note ---
ShabanaYolanda Lewis N.PBia 10/31/17 1040: History of Present Illness General Date patient seen: Oct 31, 2017 Time patient seen: 11:20 Reason for Hospitalization: Dyspnea/Respdistress Referring physician: ANU MCKEON Reason for Consultation: ANEMIA Present Illness HPI 77-year-old female brought in by EMS from outside facility or shortness of breath. Patient was allegedly just admitted recently to outside hospital for pneumonia. Denies history of COPD, asthma, CHF shortness of breath, repeatedly saying "help me" and "I can't breather." History of present illness otherwise limited due to severity of patient and possible altered mental status 2 to hypercapnia GI consulted for anemia. HPI noted above. Pt seen in ICU, had recent RISK CONSULTANT intubated and transferred. ROS limited at this time. Noted with severe anemia requiring blood transfusion. Presents today with respiratory failure, anemia, abnormal LFTs, leukocytosis and hypoalbuminemia. Unknown history of endoscopic / colonoscopy. Home Meds Reported Medications Alpha Lipoic Acid (ALPHA LIPOIC ACID) 300 Mg Capsule, 300 MG PO BID, CAP 10/31/17 Mio-3/Dha/Epa/Fish Oil (FISH OIL 500 MG SOFTGEL) 1 Each Capsule, 1 EACH PO DAILY, CAP 10/31/17 Alendronate Sodium* (FOSAMAX*) 70 Mg Tablet, 70 MG ORAL ONCE A WEEK, TAB 10/31/17 Methimazole (METHIMAZOLE) 5 Mg Tablet, 5 MG PO DAILY, TAB 10/31/17 Allopurinol* (ALLOPURINOL*) 100 Mg Tablet, 100 MG ORAL DAILY, TAB 10/31/17 Amlodipine Besylate* (AMLODIPINE BESYLATE*) 10 Mg Tablet, 10 MG ORAL DAILY, TAB 10/31/17 Atenolol* (TENORMIN*) 100 Mg Tablet, 100 MG ORAL DAILY, TAB 10/30/17 Insulin Glargine (LANTUS) 100 Unit/1 Ml Insuln.pen, 76 SUBQ BEDTIME, #1 EA 0 Refills 10/30/17 Hydralazine Hcl* (HYDRALAZINE HCL*) 50 Mg Tablet, 75 MG ORAL EVERY 12 HOURS, TAB 10/30/17 Atorvastatin Calcium* (ATORVASTATIN CALCIUM*) 40 Mg Tablet, 40 MG ORAL BEDTIME, TAB 10/30/17 Losartan Potassium* (LOSARTAN POTASSIUM*) 50 Mg Tablet, 50 MG ORAL TWICE A DAY, TAB 10/30/17 Discontinued Reported Medications Unable to Obtain Medications (UNABLE TO OBTAIN MEDS) 1 Ea Ea 10/29/17 Med list reviewed/reconciled: Yes Allergies: Coded Allergies: No Known Allergies (Verified , 09/30/07) Patient History Limited by: medical condition History Provided By: Medical Record PMH Narrative Limited by: medical condition Past Medical History: old chart reviewed Past Surgical History: unable to obtain Pertinent Family History: unable to obtain Social History: Denies: smoking, alcohol use, drug use Now: No Immunizations: UTD Reviewed Nursing Documentation: PMH: Agreed, PSxH: Agreed Nursing Documentation-PMH Hx Hypertension: Yes Hx Diabetes: Yes Hx Cancer: Yes - LEFT BREAST LUMPECTOMY Review of Systems All Other Systems: limited Physical Exam Vital Signs Date Time Temp Pulse Resp B/P (MAP) Pulse Ox O2 Delivery O2 Flow Rate FiO2 10/29/17 00:16 101.1 95 26 170/48 84 Nasal Cannula 3.0 10/29/17 01:32 100 Sp02 EP Interpretation: reviewed, normal Labs Laboratory Tests Test 10/31/17 08:00 10/31/17 08:10 White Blood Count 24.5 K/UL (4.8-10.8) #*H Red Blood Count 4.09 M/UL (4.20-5.40) L Hemoglobin 11.9 G/DL (12.0-16.0) #L Hematocrit 37.3 % (37.0-47.0) # Mean Corpuscular Volume 91 FL (80-99) Mean Corpuscular Hemoglobin 29.2 PG (27.0-31.0) Mean Corpuscular Hemoglobin Concent 32.0 G/DL (32.0-36.0) Red Cell Distribution Width 13.9 % (11.6-14.8) Platelet Count 524 K/UL (150-450) H Mean Platelet Volume 5.8 FL (6.5-10.1) L Neutrophils (%) (Auto) % (45.0-75.0) Lymphocytes (%) (Auto) % (20.0-45.0) Monocytes (%) (Auto) % (1.0-10.0) Eosinophils (%) (Auto) % (0.0-3.0) Basophils (%) (Auto) % (0.0-2.0) Differential Total Cells Counted 100 Neutrophils % (Manual) 85 % (45-75) H Lymphocytes % (Manual) 10 % (20-45) L Monocytes % (Manual) 2 % (1-10) Eosinophils % (Manual) 1 % (0-3) Basophils % (Manual) 0 % (0-2) Metamyelocytes % 1 % (0-0) H Band Neutrophils 1 % (0-8) Nucleated Red Blood Cells 2 /100 WBC Platelet Estimate Increased H Platelet Morphology Normal Reticulocyte Count Pending Prothrombin Time 12.6 SEC (9.30-11.50) H Prothromb Time International Ratio 1.2 (0.9-1.1) H Activated Partial Thromboplast Time 31 SEC (23-33) Sodium Level 135 MMOL/L (136-145) L Potassium Level 5.1 MMOL/L (3.5-5.1) Chloride Level 101 MMOL/L (98-107) Carbon Dioxide Level 26 MMOL/L (21-32) Anion Gap 8 mmol/L (5-15) Blood Urea Nitrogen 40 mg/dL (7-18) H Creatinine 2.2 MG/DL (0.55-1.30) H Estimat Glomerular Filtration Rate mL/min (>60) Glucose Level 220 MG/DL (74-106) #H Calcium Level 9.7 MG/DL (8.5-10.1) Iron Level 58 ug/dL (50-175) Total Iron Binding Capacity 225 ug/dL (250-450) L Percent Iron Saturation 26 % (15-50) Unsaturated Iron Binding 167 ug/dL (112-346) Ferritin 824 NG/ML (8-388) H Total Bilirubin 1.1 MG/DL (0.2-1.0) H Direct Bilirubin 0.5 MG/DL (0.0-0.3) H Aspartate Amino Transf (AST/SGOT) 66 U/L (15-37) H Alanine Aminotransferase (ALT/SGPT) 86 U/L (12-78) H Alkaline Phosphatase 163 U/L (46-116) H Total Protein 8.9 G/DL (6.4-8.2) H Albumin 2.5 G/DL (3.4-5.0) L Globulin 6.4 g/dL Albumin/Globulin Ratio 0.4 (1.0-2.7) L Vitamin B12 Level > 2000 PG/ML (193-986) H Folate 55.1 NG/ML (8.6-58.9) Thyroid Stimulating Hormone (TSH) 4.351 uiU/mL (0.358-3.740) Free Thyroxine 1.41 NG/DL (0.76-1.46) Arterial Blood pH 7.030 (7.350-7.450) Arterial Blood Partial Pressure CO2 97.2 mmHg (35.0-45.0) *H Arterial Blood Partial Pressure O2 80.3 mmHg (75.0-100.0) Arterial Blood HCO3 25.1 mmol/L (22.0-26.0) Arterial Blood Oxygen Saturation 90.2 % (92.0-98.0) L Arterial Blood Base Excess -7.6 Nishant Test Positive General Appearance: alert, mild distress Head: normocephalic EENT: PERRL/EOMI, normal ENT inspection Neck: supple Respiratory: other - intubated Cardiovascular: normal rate Gastrointestinal: normal inspection, non tender, soft, normal bowel sounds, non -distended Rectal: deferred Genitourinary: no CVA tenderness Musculoskeletal: normal inspection, back normal Neurologic: alert, responsive Skin: normal inspection, normal color, no rash, warm/dry, palpation normal, well hydrated Lymphatic: normal inspection, no adenopathy Current Medications Current Medications Medications (Trade) Dose Ordered Sig/Fabrizio Route PRN Reason Start Time Stop Time Status Last Admin Dose Admin Acetaminophen (Tylenol) 650 mg Q4H PRN ORAL Mild Pain/Temp > 100.5 10/31/17 10:00 11/28/17 09:59 Albuterol/ Ipratropium (Albuterol/ Ipratropium) 3 ml Q4HRT HHN 10/31/17 11:00 11/05/17 08:44 Atorvastatin Calcium (Lipitor) 40 mg BEDTIME ORAL 10/31/17 21:00 11/29/17 20:59 Cefepime HCl 1 gm/ Sodium Chloride 55 ml @ 110 mls/hr Q24H IVPB 10/31/17 10:00 11/05/17 09:59 Heparin Sodium (Porcine) (Heparin 5000 units/ml) 5,000 units EVERY 12 HOURS SUBQ 10/31/17 21:00 11/28/17 08:59 Levofloxacin 100 ml @ 100 mls/hr Q48H IVPB 11/02/17 01:00 11/07/17 00:59 Losartan Potassium (Cozaar) 50 mg DAILY ORAL 11/01/17 09:00 11/30/17 08:59 Magnesium Sulfate 100 ml @ 100 mls/hr Q1H IVPB 10/31/17 11:00 10/31/17 12:59 Pantoprazole (Protonix) 40 mg DAILY IVP 11/01/17 09:00 11/28/17 08:59 Vancomycin HCl (Vanco rx to dose) 1 ea DAILY PRN MISC Per rx protocol 10/31/17 10:00 11/30/17 09:59 GI: Plan Problems: (1) Anemia (2) Abnormal LFTs Plan abnormal LFTs most likely due to hepatic congestion defer GI procedures, respiratory status not stable anemia work up pending OB stool r/o GI bleed monitor H&H, prn transfusions ppi electrolyte correction pulmonary support fu labs, LFTs Discussed with Dr. Brooks. Thank you for this patient referral, we will follow. DARWIN BROOKS 11/01/17 1516: History of Present Illness General Reason for Hospitalization: Dyspnea/Respdistress Present Illness Home Meds Reported Medications Alpha Lipoic Acid (ALPHA LIPOIC ACID) 300 Mg Capsule, 300 MG PO BID, CAP 10/31/17 Mio-3/Dha/Epa/Fish Oil (FISH OIL 500 MG SOFTGEL) 1 Each Capsule, 1 EACH PO DAILY, CAP 10/31/17 Alendronate Sodium* (FOSAMAX*) 70 Mg Tablet, 70 MG ORAL ONCE A WEEK, TAB 10/31/17 Methimazole (METHIMAZOLE) 5 Mg Tablet, 5 MG PO DAILY, TAB 10/31/17 Allopurinol* (ALLOPURINOL*) 100 Mg Tablet, 100 MG ORAL DAILY, TAB 10/31/17 Amlodipine Besylate* (AMLODIPINE BESYLATE*) 10 Mg Tablet, 10 MG ORAL DAILY, TAB 10/31/17 Atenolol* (TENORMIN*) 100 Mg Tablet, 100 MG ORAL DAILY, TAB 10/30/17 Insulin Glargine (LANTUS) 100 Unit/1 Ml Insuln.pen, 76 SUBQ BEDTIME, #1 EA 0 Refills 10/30/17 Hydralazine Hcl* (HYDRALAZINE HCL*) 50 Mg Tablet, 75 MG ORAL EVERY 12 HOURS, TAB 10/30/17 Atorvastatin Calcium* (ATORVASTATIN CALCIUM*) 40 Mg Tablet, 40 MG ORAL BEDTIME, TAB 10/30/17 Losartan Potassium* (LOSARTAN POTASSIUM*) 50 Mg Tablet, 50 MG ORAL TWICE A DAY, TAB 10/30/17 Discontinued Reported Medications Unable to Obtain Medications (UNABLE TO OBTAIN MEDS) 1 Ea Ea 10/29/17 Allergies: Coded Allergies: No Known Allergies (Verified , 09/30/07) GI: Plan Plan The patient was seen and examined at bedside and all new and available data was reviewed in the patients chart. I agree with the above findings, impression and plan. (Patient seen earlier today. Signature stamp does not reflect patient encounter time.). - MD Shabana Mccormack Anh Khoi N.P. Oct 31, 2017 10:40 DARWIN BROOKS Nov 01, 2017 15:16
[2017-10-31] MEDS: Albuterol/Ipratropium 3ml neb HHN SCH ×4 (11:03→23:11)
[2017-10-31] MEDS ORDERED: Sodium Bicarbonate 50ml Carp IVP ONE (11:30)
--- NOTE | 2017-10-31 11:42 | Diagnostic Imaging Report ---
Indication: Dyspnea, post endotracheal tube placement Technique: One view of the chest Comparison: 10/30/2017 Findings: Interim placement of an endotracheal tube, tube tip approximately 6 cm above the onrma, in good position. There is increasing interstitial and airspace disease bilaterally. Stable left, increased right small pleural fluid again demonstrated. Left axillary surgical clips again demonstrated Impression: Satisfactory endotracheal intubation. This critical test result was phoned to the patient's nurse previously at the time the exam was performed Increasing bilateral pulmonary parenchymal disease and right-sided pleural fluid, over one day
--- NOTE | 2017-10-31 14:26 | Diagnostic Imaging Report ---
Indication: Abnormal renal function tests Technique: Grayscale and duplex images of the kidneys, retroperitoneum, and bladder were obtained. Comparison: 09/30/2007 Findings: Right kidney measures 9.4 cm in length. Left kidney measures 10.7 cm in length. Both kidneys demonstrate normal echogenicity. No hydronephrosis. Small cysts are seen in the kidneys bilaterally. Normal inferior vena cava. Bladder is nondistended and contains a Hart catheter. No significant interim change Impression: Negative for hydronephrosis Empty bladder with a Hart catheter Incidental finding of bilateral renal cysts.
[2017-10-31] MEDS ORDERED: Etomidate 40mg/20ml Inj IV ONE (15:18)
--- NOTE | 2017-10-31 15:35 | Diagnostic Imaging Report ---
Indication: Post nasogastric tube placement Technique: One view of the chest Comparison: 3 hours earlier Findings: Interim placement of nasogastric tube, tip projected at the level of the gastric body, proximal port well beyond the gastroesophageal junction. Stable satisfactory position of endotracheal tube. Allowing for technical differences, suspect some improvement in previously demonstrated interstitial and airspace opacities. Bilateral pleural effusions persist, unchanged. Left axillary surgical clips are again demonstrated Impression: Satisfactory nasogastric intubation Possible improvement of pulmonary interstitial and alveolar infiltrates versus edema, over 3 hours
[2017-10-31] MEDS ORDERED: NS 500ML ONE (17:35)
[2017-10-31] MEDS ORDERED: Tubing Blood Filter IV ONE (17:35)
[2017-10-31] MEDS ORDERED: D5W 275ml ONE (17:35)
[2017-10-31] MEDS: Heparin 5000 units/ml inj SUBQ SCH (20:55)
[2017-10-31] MEDS: Atorvastatin 20mg tab ORAL SCH (20:56)
[2017-11-01] VITALS (24 sets, daily range): BP systolic 141–174; BP diastolic 42–91
[2017-11-01] MEDS: Albuterol/Ipratropium 3ml neb HHN SCH ×6 (03:08→23:10)
[2017-11-01 04:56] LABS: ALANINE AMINOTRANSFERASE 70 U/L (12-78); ALBUMIN 2.2 G/DL (3.4-5.0); ALBUMIN/GLOBULIN RATIO 0.4 (1.0-2.7); ALKALINE PHOSPHATASE 125 U/L (46-116); ANION GAP 15 mmol/L (5-15); ASPARTATE AMINO TRANSFERASE 49 U/L (15-37); BLOOD UREA NITROGEN 42 mg/dL (7-18); CALCIUM 9.5 MG/DL (8.5-10.1); CARBON DIOXIDE 22 MMOL/L (21-32); CHLORIDE 104 MMOL/L (98-107); CREATININE 2.2 MG/DL (0.55-1.30); POTASSIUM 4.4 MMOL/L (3.5-5.1); SODIUM 141 MMOL/L (136-145)
[2017-11-01 05:49] LABS: HEMATOCRIT 30.9 % (37.0-47.0); HEMOGLOBIN 10.4 G/DL (12.0-16.0); MEAN CORPUSCULAR VOLUME 88 FL (80-99); PLATELET COUNT 390 K/UL (150-450); RED BLOOD COUNT 3.51 M/UL (4.20-5.40); RED CELL DISTRIBUTION WIDTH 13.6 % (11.6-14.8); WHITE BLOOD COUNT 18.1 K/UL (4.8-10.8)
[2017-11-01] MEDS ORDERED: Vancomycin 1gm inj IVPB ONE (05:58)
[2017-11-01] MEDS ORDERED: Vancomycin 1gm/D5W 275ml IVPB ONE ×2 (06:00)
--- NOTE | 2017-11-01 08:12 | Critical Care Progress Note ---
Assessment/Plan Assessment/Plan IMPRESSION: 1. Respiratory failure. 2. Bilateral pneumonia, possible aspiration, possible group home-acquired. 3. Hypoxemia. 4. Profound respiratory acidosis. 5. Acute respiratory failure, now mostly compensated. 6. Chronic renal failure. 7. Severe protein-calorie malnutrition. 8. Hyponatremia of unclear etiology. 9. Mild leukocytosis, possible sepsis. 10. Anemia. 11. Thrombocytosis. RECOMMENDATIONS: 1. Supportive care. 2. Ventilatory support as is and monitor acid base 3. lasix for now 4. Antibiotics and monitor cultures 5. Nutritional support- will place NGT 6. Obtain dietary evaluation 7. subcutaneous heparin. 8. noted venous ultrasound. 9. Follow up x-ray. for change 10. Follow up ABG post intubation 11. transfuse as needed 12. Monitor in ICU and try to wean; if any issue- consider trach medications/laboratory data/nursing notes/ICU care reviewed in detail note reviewed and edited care discussed with RN and RT ICU time spent 42 minutes Critical Care - Subjective Interval Events: care noted on the ventilator findings noted on oxygen ROS Limited/Unobtainable: Yes Condition: critical EKG Rhythm: Sinus Rhythm I&O: Intake and Output 10/31/17 11/01/17 19:00 07:00 Intake Total 55 ml Output Total 345 ml 515 ml Balance -290 ml -515 ml IV Total 55 ml Output Urine Total 345 ml 515 ml # Bowel Movements 1 Critical Care - Objective CXR: pulmonary edema and infiltrates ET-Tube: 7.5 ET Position: 24 Last 24 Hour Vital Signs Date Time Temp Pulse Resp B/P (MAP) Pulse Ox O2 Delivery O2 Flow Rate FiO2 11/01/17 08:00 99.1 87 28 159/51 98 Mechanical Ventilator 30 11/01/17 08:00 30 11/01/17 07:25 96 28 100 Mechanical Ventilator 30 11/01/17 07:19 88 28 98 Mechanical Ventilator 30 11/01/17 07:19 89 28 30 11/01/17 07:00 91 20 159/91 99 Mechanical Ventilator 30 11/01/17 06:00 87 20 154/67 99 Mechanical Ventilator 30 11/01/17 05:28 86 28 30 11/01/17 05:00 93 26 149/82 99 Mechanical Ventilator 30 11/01/17 04:00 99 11/01/17 04:00 98.8 83 24 149/46 99 Mechanical Ventilator 30 11/01/17 04:00 30 11/01/17 03:17 84 28 98 Mechanical Ventilator 30 11/01/17 03:07 81 28 97 Mechanical Ventilator 30 11/01/17 03:06 81 28 30 11/01/17 03:00 91 26 149/42 99 Mechanical Ventilator 30 11/01/17 02:00 96 26 174/56 99 Mechanical Ventilator 30 11/01/17 01:15 98.7 11/01/17 01:13 88 28 30 11/01/17 01:00 85 26 155/56 99 Mechanical Ventilator 30 11/01/17 00:00 95 11/01/17 00:00 30 11/01/17 00:00 98.7 86 20 165/57 94 Mechanical Ventilator 30 10/31/17 23:34 30 10/31/17 23:23 90 28 98 Mechanical Ventilator 30 10/31/17 23:10 90 28 98 Mechanical Ventilator 35 10/31/17 23:09 90 28 35 10/31/17 23:00 85 26 133/56 100 Mechanical Ventilator 30 10/31/17 22:00 88 20 150/44 97 Mechanical Ventilator 35 10/31/17 21:04 93 28 35 10/31/17 21:00 85 24 149/43 95 Mechanical Ventilator 35 10/31/17 20:00 35 10/31/17 20:00 91 10/31/17 20:00 98.8 86 24 140/41 99 Mechanical Ventilator 35 10/31/17 19:02 92 28 100 Mechanical Ventilator 35 10/31/17 19:00 86 25 140/48 100 Non-Rebreather 50 10/31/17 18:46 85 28 98 Mechanical Ventilator 35 10/31/17 18:43 85 28 35 10/31/17 18:00 85 26 133/56 100 Non-Rebreather 50 10/31/17 17:00 88 22 130/58 100 Non-Rebreather 50 10/31/17 16:50 92 28 35 10/31/17 16:00 97 10/31/17 16:00 90 24 145/55 100 Non-Rebreather 50 10/31/17 15:38 103 28 99 Mechanical Ventilator 100 10/31/17 15:27 95 28 100 Mechanical Ventilator 50 10/31/17 15:20 95 28 50 10/31/17 15:00 93 25 150/52 100 Non-Rebreather 60 10/31/17 14:29 98.8 90 25 130/55 100 Non-Rebreather 100 10/31/17 14:00 98.8 90 25 130/55 100 Non-Rebreather 100 10/31/17 13:25 94 28 60 10/31/17 13:00 91 25 139/55 100 Non-Rebreather 100 10/31/17 12:00 97 10/31/17 12:00 94 25 151/54 100 Non-Rebreather 100 10/31/17 11:25 60 10/31/17 11:20 60 10/31/17 11:13 107 20 99 Mechanical Ventilator 100 10/31/17 11:03 107 20 99 Mechanical Ventilator 100 10/31/17 11:00 108 20 177/61 100 Non-Rebreather 100 10/31/17 10:54 107 20 100 10/31/17 10:00 107 20 182/58 100 Non-Rebreather 100 10/31/17 09:27 112 20 Mechanical Ventilator 100 10/31/17 09:27 112 20 100 10/31/17 09:00 98.4 110 20 177/56 100 Mechanical Ventilator 100 Labs: Labs Test 10/29/17 09:30 10/29/17 12:20 10/30/17 04:00 10/30/17 08:30 Magnesium Level 1.7 MG/DL (1.8-2.4) Arterial Blood pH 7.478 (7.350-7.450) 7.337 (7.350-7.450) Arterial Blood Partial Pressure CO2 35.3 mmHg (35.0-45.0) 44.4 mmHg (35.0-45.0) Arterial Blood Partial Pressure O2 127.6 mmHg (75.0-100.0) 95.6 mmHg (75.0-100.0) Arterial Blood HCO3 25.6 mmol/L (22.0-26.0) 23.3 mmol/L (22.0-26.0) Arterial Blood Oxygen Saturation 98.3 % (92.0-98.0) 96.1 % (92.0-98.0) Arterial Blood Base Excess 2.0 -2.4 Nishant Test Positive Positive White Blood Count 10.2 K/UL (4.8-10.8) Red Blood Count 2.63 M/UL (4.20-5.40) Hemoglobin 7.6 G/DL (12.0-16.0) Hematocrit 23.5 % (37.0-47.0) Mean Corpuscular Volume 89 FL (80-99) Mean Corpuscular Hemoglobin 28.8 PG (27.0-31.0) Mean Corpuscular Hemoglobin Concent 32.2 G/DL (32.0-36.0) Red Cell Distribution Width 14.2 % (11.6-14.8) Platelet Count 387 K/UL (150-450) Mean Platelet Volume 6.5 FL (6.5-10.1) Neutrophils (%) (Auto) % (45.0-75.0) Lymphocytes (%) (Auto) % (20.0-45.0) Monocytes (%) (Auto) % (1.0-10.0) Eosinophils (%) (Auto) % (0.0-3.0) Basophils (%) (Auto) % (0.0-2.0) Differential Total Cells Counted 100 Neutrophils % (Manual) 73 % (45-75) Lymphocytes % (Manual) 18 % (20-45) Monocytes % (Manual) 9 % (1-10) Eosinophils % (Manual) 0 % (0-3) Basophils % (Manual) 0 % (0-2) Band Neutrophils 0 % (0-8) Platelet Estimate Adequate Platelet Morphology Normal Hypochromasia 1+ Sodium Level 130 MMOL/L (136-145) Potassium Level 5.1 MMOL/L (3.5-5.1) Chloride Level 96 MMOL/L (98-107) Carbon Dioxide Level 25 MMOL/L (21-32) Anion Gap 9 mmol/L (5-15) Blood Urea Nitrogen 47 mg/dL (7-18) Creatinine 2.9 MG/DL (0.55-1.30) Estimat Glomerular Filtration Rate mL/min (>60) Glucose Level 99 MG/DL (74-106) Calcium Level 9.0 MG/DL (8.5-10.1) Total Bilirubin 0.5 MG/DL (0.2-1.0) Aspartate Amino Transf (AST/SGOT) 49 U/L (15-37) Alanine Aminotransferase (ALT/SGPT) 43 U/L (12-78) Alkaline Phosphatase 121 U/L (46-116) Total Protein 7.3 G/DL (6.4-8.2) Albumin 2.2 G/DL (3.4-5.0) Globulin 5.1 g/dL Albumin/Globulin Ratio 0.4 (1.0-2.7) Random Vancomycin Level 16.6 ug/mL Test 10/31/17 08:00 10/31/17 08:10 10/31/17 10:45 10/31/17 13:35 White Blood Count 24.5 K/UL (4.8-10.8) Red Blood Count 4.09 M/UL (4.20-5.40) Hemoglobin 11.9 G/DL (12.0-16.0) Hematocrit 37.3 % (37.0-47.0) Mean Corpuscular Volume 91 FL (80-99) Mean Corpuscular Hemoglobin 29.2 PG (27.0-31.0) Mean Corpuscular Hemoglobin Concent 32.0 G/DL (32.0-36.0) Red Cell Distribution Width 13.9 % (11.6-14.8) Platelet Count 524 K/UL (150-450) Mean Platelet Volume 5.8 FL (6.5-10.1) Neutrophils (%) (Auto) % (45.0-75.0) Lymphocytes (%) (Auto) % (20.0-45.0) Monocytes (%) (Auto) % (1.0-10.0) Eosinophils (%) (Auto) % (0.0-3.0) Basophils (%) (Auto) % (0.0-2.0) Differential Total Cells Counted 100 Neutrophils % (Manual) 85 % (45-75) Lymphocytes % (Manual) 10 % (20-45) Monocytes % (Manual) 2 % (1-10) Eosinophils % (Manual) 1 % (0-3) Basophils % (Manual) 0 % (0-2) Metamyelocytes % 1 % (0-0) Band Neutrophils 1 % (0-8) Nucleated Red Blood Cells 2 /100 WBC Other Cell Type Pathologist comment Platelet Estimate Increased Platelet Morphology Normal Reticulocyte Count 1.6 % (0.0-2.0) Prothrombin Time 12.6 SEC (9.30-11.50) Prothromb Time International Ratio 1.2 (0.9-1.1) Activated Partial Thromboplast Time 31 SEC (23-33) Sodium Level 135 MMOL/L (136-145) Potassium Level 5.1 MMOL/L (3.5-5.1) Chloride Level 101 MMOL/L (98-107) Carbon Dioxide Level 26 MMOL/L (21-32) Anion Gap 8 mmol/L (5-15) Blood Urea Nitrogen 40 mg/dL (7-18) Creatinine 2.2 MG/DL (0.55-1.30) Estimat Glomerular Filtration Rate mL/min (>60) Glucose Level 220 MG/DL (74-106) Calcium Level 9.7 MG/DL (8.5-10.1) Iron Level 58 ug/dL (50-175) Total Iron Binding Capacity 225 ug/dL (250-450) Percent Iron Saturation 26 % (15-50) Unsaturated Iron Binding 167 ug/dL (112-346) Ferritin 824 NG/ML (8-388) Total Bilirubin 1.1 MG/DL (0.2-1.0) Direct Bilirubin 0.5 MG/DL (0.0-0.3) Aspartate Amino Transf (AST/SGOT) 66 U/L (15-37) Alanine Aminotransferase (ALT/SGPT) 86 U/L (12-78) Alkaline Phosphatase 163 U/L (46-116) Total Protein 8.9 G/DL (6.4-8.2) Albumin 2.5 G/DL (3.4-5.0) Globulin 6.4 g/dL Albumin/Globulin Ratio 0.4 (1.0-2.7) Vitamin B12 Level > 2000 PG/ML (193-986) Folate 55.1 NG/ML (8.6-58.9) Thyroid Stimulating Hormone (TSH) 4.351 uiU/mL (0.358-3.740) Free Thyroxine 1.41 NG/DL (0.76-1.46) Arterial Blood pH 7.030 (7.350-7.450) 7.192 (7.350-7.450) 7.383 (7.350-7.450) Arterial Blood Partial Pressure CO2 97.2 mmHg (35.0-45.0) 58.2 mmHg (35.0-45.0) 36.9 mmHg (35.0-45.0) Arterial Blood Partial Pressure O2 80.3 mmHg (75.0-100.0) 198.8 mmHg (75.0-100.0) 140.2 mmHg (75.0-100.0) Arterial Blood HCO3 25.1 mmol/L (22.0-26.0) 21.8 mmol/L (22.0-26.0) 21.5 mmol/L (22.0-26.0) Arterial Blood Oxygen Saturation 90.2 % (92.0-98.0) 98.7 % (92.0-98.0) 98.3 % (92.0-98.0) Arterial Blood Base Excess -7.6 -6.8 -3.5 Nishant Test Positive Positive Positive Test 11/01/17 03:50 White Blood Count 18.1 K/UL (4.8-10.8) Red Blood Count 3.51 M/UL (4.20-5.40) Hemoglobin 10.4 G/DL (12.0-16.0) Hematocrit 30.9 % (37.0-47.0) Mean Corpuscular Volume 88 FL (80-99) Mean Corpuscular Hemoglobin 29.6 PG (27.0-31.0) Mean Corpuscular Hemoglobin Concent 33.5 G/DL (32.0-36.0) Red Cell Distribution Width 13.6 % (11.6-14.8) Platelet Count 390 K/UL (150-450) Mean Platelet Volume 6.2 FL (6.5-10.1) Neutrophils (%) (Auto) % (45.0-75.0) Lymphocytes (%) (Auto) % (20.0-45.0) Monocytes (%) (Auto) % (1.0-10.0) Eosinophils (%) (Auto) % (0.0-3.0) Basophils (%) (Auto) % (0.0-2.0) Sodium Level 141 MMOL/L (136-145) Potassium Level 4.4 MMOL/L (3.5-5.1) Chloride Level 104 MMOL/L (98-107) Carbon Dioxide Level 22 MMOL/L (21-32) Anion Gap 15 mmol/L (5-15) Blood Urea Nitrogen 42 mg/dL (7-18) Creatinine 2.2 MG/DL (0.55-1.30) Estimat Glomerular Filtration Rate mL/min (>60) Glucose Level 160 MG/DL (74-106) Calcium Level 9.5 MG/DL (8.5-10.1) Magnesium Level 2.0 MG/DL (1.8-2.4) Total Bilirubin 1.0 MG/DL (0.2-1.0) Aspartate Amino Transf (AST/SGOT) 49 U/L (15-37) Alanine Aminotransferase (ALT/SGPT) 70 U/L (12-78) Alkaline Phosphatase 125 U/L (46-116) Total Protein 7.4 G/DL (6.4-8.2) Albumin 2.2 G/DL (3.4-5.0) Globulin 5.2 g/dL Albumin/Globulin Ratio 0.4 (1.0-2.7) Random Vancomycin Level 15.2 ug/mL Objective: more alert HEENT: Negative. extubated but now obtunded NECK: Supple. No jugular venous distention. LUNGS: coarse. reduced air entry. reduced. CARDIAC: Normal S1 and S2. Regular rate and rhythm. Somewhat distant without clear murmurs, rubs, or gallops. ABDOMEN: Soft, nontender, nondistended. no HSM EXTREMITIES: No cyanosis or clubbing. NEUROLOGIC: Poorly responsive at present. SKIN: Noted and reviewed. Micro: Microbiology Date/Time Source Procedure Growth Status 10/29/17 09:30 Blood Blood Culture - Preliminary NO GROWTH AFTER 48 HOURS Resulted 10/29/17 09:30 Blood Blood Culture - Preliminary NO GROWTH AFTER 48 HOURS Resulted 10/29/17 11:50 Sputum Gram Stain - Final Complete 10/29/17 11:50 Sputum Sputum Culture - Final NORMAL UPPER RESPIRATORY ANSLEY PRESENT Complete Accucheck: 128 LOGAN PENN Nov 01, 2017 08:12
[2017-11-01] MEDS: Heparin 5000 units/ml inj SUBQ SCH ×2 (08:17→20:52)
[2017-11-01] MEDS ORDERED: Losartan 50mg tab ORAL SCH (09:00)
[2017-11-01] MEDS ORDERED: Pantoprazole Inj IVP SCH (09:00)
[2017-11-01] MEDS: Cefepime HCl 1 GM in NS 55 ML IVPB SCH (10:07)
--- NOTE | 2017-11-01 12:20 | GI Progress Note ---
Assessment/Plan Problems: (1) Abnormal LFTs ICD Codes: R94.5 - Abnormal results of liver function studies SNOMED: 836404516 (2) Respiratory failure ICD Codes: J96.90 - Respiratory failure, unspecified, unspecified whether with hypoxia or hypercapnia SNOMED: 907573932 Qualifiers: Qualified Codes: J96.01 - Acute respiratory failure with hypoxia; J96.02 - Acute respiratory failure with hypercapnia (3) Dyspnea ICD Codes: R06.00 - Dyspnea, unspecified SNOMED: 120076589 Qualifiers: Qualified Codes: R06.00 - Dyspnea, unspecified (4) Anemia ICD Codes: D64.9 - Anemia, unspecified SNOMED: 694811769 Status: progressing Status Narrative Discussed with Dr. Brooks. Assessment/Plan abnormal LFTs most likely due to hepatic congestion >> downtrending defer GI procedures, respiratory status not stable extubated today >> ok to remove NGT and order for ST OB stool r/o GI bleed monitor H&H, prn transfusions ppi electrolyte correction pulmonary support fu labs, LFTs The patient was seen and examined at bedside and all new and available data was reviewed in the patients chart. I agree with the above findings, impression and plan. (Patient seen earlier today. Signature stamp does not reflect patient encounter time.). - Jacey Brooks MD Subjective Subjective limited Objective Last 24 Hour Vital Signs Date Time Temp Pulse Resp B/P (MAP) Pulse Ox O2 Delivery O2 Flow Rate FiO2 11/01/17 12:00 98.9 102 23 153/48 97 Nasal Cannula 4.0 11/01/17 12:00 102 11/01/17 11:20 110 24 97 Nasal Cannula 4.0 36 11/01/17 11:13 Nasal Cannula 4.0 36 11/01/17 11:12 95 Nasal Cannula 4.0 36 11/01/17 11:12 Nasal Cannula 4.0 36 11/01/17 11:11 111 28 95 Nasal Cannula 4.0 36 11/01/17 11:00 110 30 159/63 94 Mechanical Ventilator 30 11/01/17 10:00 108 30 174/58 93 Mechanical Ventilator 30 11/01/17 09:30 30 11/01/17 09:23 101 25 30 11/01/17 09:21 96 11/01/17 09:00 90 28 160/52 98 Mechanical Ventilator 30 11/01/17 08:13 156/46 11/01/17 08:00 99.1 87 28 159/51 98 Mechanical Ventilator 30 11/01/17 08:00 89 11/01/17 08:00 30 11/01/17 07:25 96 28 100 Mechanical Ventilator 30 11/01/17 07:19 88 28 98 Mechanical Ventilator 30 11/01/17 07:19 89 28 30 11/01/17 07:00 91 20 159/91 99 Mechanical Ventilator 30 11/01/17 06:00 87 20 154/67 99 Mechanical Ventilator 30 11/01/17 05:28 86 28 30 11/01/17 05:00 93 26 149/82 99 Mechanical Ventilator 30 11/01/17 04:00 99 11/01/17 04:00 98.8 83 24 149/46 99 Mechanical Ventilator 30 11/01/17 04:00 30 11/01/17 03:17 84 28 98 Mechanical Ventilator 30 11/01/17 03:07 81 28 97 Mechanical Ventilator 30 11/01/17 03:06 81 28 30 11/01/17 03:00 91 26 149/42 99 Mechanical Ventilator 30 11/01/17 02:00 96 26 174/56 99 Mechanical Ventilator 30 11/01/17 01:15 98.7 11/01/17 01:13 88 28 30 11/01/17 01:00 85 26 155/56 99 Mechanical Ventilator 30 11/01/17 00:00 95 11/01/17 00:00 30 11/01/17 00:00 98.7 86 20 165/57 94 Mechanical Ventilator 30 10/31/17 23:34 30 10/31/17 23:23 90 28 98 Mechanical Ventilator 30 10/31/17 23:10 90 28 98 Mechanical Ventilator 35 10/31/17 23:09 90 28 35 10/31/17 23:00 85 26 133/56 100 Mechanical Ventilator 30 10/31/17 22:00 88 20 150/44 97 Mechanical Ventilator 35 10/31/17 21:04 93 28 35 10/31/17 21:00 85 24 149/43 95 Mechanical Ventilator 35 10/31/17 20:00 35 10/31/17 20:00 91 10/31/17 20:00 98.8 86 24 140/41 99 Mechanical Ventilator 35 10/31/17 19:02 92 28 100 Mechanical Ventilator 35 10/31/17 19:00 86 25 140/48 100 Non-Rebreather 50 10/31/17 18:46 85 28 98 Mechanical Ventilator 35 10/31/17 18:43 85 28 35 10/31/17 18:00 85 26 133/56 100 Non-Rebreather 50 10/31/17 17:00 88 22 130/58 100 Non-Rebreather 50 10/31/17 16:50 92 28 35 10/31/17 16:00 97 10/31/17 16:00 90 24 145/55 100 Non-Rebreather 50 10/31/17 15:38 103 28 99 Mechanical Ventilator 100 10/31/17 15:27 95 28 100 Mechanical Ventilator 50 10/31/17 15:20 95 28 50 10/31/17 15:00 93 25 150/52 100 Non-Rebreather 60 10/31/17 14:29 98.8 90 25 130/55 100 Non-Rebreather 100 10/31/17 14:00 98.8 90 25 130/55 100 Non-Rebreather 100 10/31/17 13:25 94 28 60 10/31/17 13:00 91 25 139/55 100 Non-Rebreather 100 Intake and Output 10/31/17 11/01/17 19:00 07:00 Intake Total 55 ml 183.708 ml Output Total 345 ml 515 ml Balance -290 ml -331.292 ml IV Total 55 ml 183.708 ml Output Urine Total 345 ml 515 ml # Bowel Movements 1 Laboratory Tests Test 10/31/17 13:35 11/01/17 03:50 11/01/17 10:04 Arterial Blood pH 7.383 (7.350-7.450) 7.318 (7.350-7.450) Arterial Blood Partial Pressure CO2 36.9 mmHg (35.0-45.0) 47.7 mmHg (35.0-45.0) H Arterial Blood Partial Pressure O2 140.2 mmHg (75.0-100.0) H 66.2 mmHg (75.0-100.0) L Arterial Blood HCO3 21.5 mmol/L (22.0-26.0) L 23.9 mmol/L (22.0-26.0) Arterial Blood Oxygen Saturation 98.3 % (92.0-98.0) H 90.2 % (92.0-98.0) L Arterial Blood Base Excess -3.5 -2.4 Nishant Test Positive Positive White Blood Count 18.1 K/UL (4.8-10.8) H Red Blood Count 3.51 M/UL (4.20-5.40) L Hemoglobin 10.4 G/DL (12.0-16.0) L Hematocrit 30.9 % (37.0-47.0) L Mean Corpuscular Volume 88 FL (80-99) Mean Corpuscular Hemoglobin 29.6 PG (27.0-31.0) Mean Corpuscular Hemoglobin Concent 33.5 G/DL (32.0-36.0) Red Cell Distribution Width 13.6 % (11.6-14.8) Platelet Count 390 K/UL (150-450) Mean Platelet Volume 6.2 FL (6.5-10.1) L Neutrophils (%) (Auto) % (45.0-75.0) Lymphocytes (%) (Auto) % (20.0-45.0) Monocytes (%) (Auto) % (1.0-10.0) Eosinophils (%) (Auto) % (0.0-3.0) Basophils (%) (Auto) % (0.0-2.0) Differential Total Cells Counted 100 Neutrophils % (Manual) 78 % (45-75) H Lymphocytes % (Manual) 12 % (20-45) L Monocytes % (Manual) 10 % (1-10) Eosinophils % (Manual) 0 % (0-3) Basophils % (Manual) 0 % (0-2) Band Neutrophils 0 % (0-8) Platelet Estimate Adequate Platelet Morphology Normal Polychromasia 1+ Hypochromasia 1+ Sodium Level 141 MMOL/L (136-145) Potassium Level 4.4 MMOL/L (3.5-5.1) Chloride Level 104 MMOL/L (98-107) Carbon Dioxide Level 22 MMOL/L (21-32) Anion Gap 15 mmol/L (5-15) Blood Urea Nitrogen 42 mg/dL (7-18) H Creatinine 2.2 MG/DL (0.55-1.30) H Estimat Glomerular Filtration Rate mL/min (>60) Glucose Level 160 MG/DL (74-106) H Calcium Level 9.5 MG/DL (8.5-10.1) Magnesium Level 2.0 MG/DL (1.8-2.4) Total Bilirubin 1.0 MG/DL (0.2-1.0) Aspartate Amino Transf (AST/SGOT) 49 U/L (15-37) H Alanine Aminotransferase (ALT/SGPT) 70 U/L (12-78) Alkaline Phosphatase 125 U/L (46-116) H Total Protein 7.4 G/DL (6.4-8.2) Albumin 2.2 G/DL (3.4-5.0) L Globulin 5.2 g/dL Albumin/Globulin Ratio 0.4 (1.0-2.7) L Random Vancomycin Level 15.2 ug/mL Height (Feet): 5 Height (Inches): 2.00 Weight (Pounds): 202 General Appearance: WD/WN, no apparent distress, alert Cardiovascular: normal rate Respiratory/Chest: normal breath sounds, no respiratory distress Abdominal Exam: normal bowel sounds, non tender, soft Extremities: normal range of motion, non-tender Yolanda Donald NAddy Nov 01, 2017 12:20 DARWIN BROOKS Nov 01, 2017 15:18
--- NOTE | 2017-11-01 14:55 | General Progress Note ---
Assessment/Plan Assessment/Plan Resp Faiure -extubated - to tele. Anemia stable. Avoin Narcotics + Anxiolytics. DW pt. Needs SNF for PT. Subjective Allergies: Coded Allergies: No Known Allergies (Verified , 09/30/07) Subjective Extubated. No new c/o Objective Last 24 Hour Vital Signs Date Time Temp Pulse Resp B/P (MAP) Pulse Ox O2 Delivery O2 Flow Rate FiO2 11/01/17 14:32 100 22 100 Nasal Cannula 4.0 36 11/01/17 14:25 99 22 96 Nasal Cannula 4.0 36 11/01/17 14:00 100 25 164/57 94 Nasal Cannula 4.0 11/01/17 13:00 106 23 155/55 95 Nasal Cannula 4.0 11/01/17 12:00 98.9 102 23 153/48 97 Nasal Cannula 4.0 11/01/17 12:00 102 11/01/17 11:20 110 24 97 Nasal Cannula 4.0 36 11/01/17 11:13 Nasal Cannula 4.0 36 11/01/17 11:12 95 Nasal Cannula 4.0 36 11/01/17 11:12 Nasal Cannula 4.0 36 11/01/17 11:11 111 28 95 Nasal Cannula 4.0 36 11/01/17 11:00 110 30 159/63 94 Mechanical Ventilator 30 11/01/17 10:00 108 30 174/58 93 Mechanical Ventilator 30 11/01/17 09:30 30 11/01/17 09:23 101 25 30 11/01/17 09:21 96 11/01/17 09:00 90 28 160/52 98 Mechanical Ventilator 30 11/01/17 08:13 156/46 11/01/17 08:00 99.1 87 28 159/51 98 Mechanical Ventilator 30 11/01/17 08:00 89 11/01/17 08:00 30 11/01/17 07:25 96 28 100 Mechanical Ventilator 30 11/01/17 07:19 88 28 98 Mechanical Ventilator 30 11/01/17 07:19 89 28 30 11/01/17 07:00 91 20 159/91 99 Mechanical Ventilator 30 11/01/17 06:00 87 20 154/67 99 Mechanical Ventilator 30 11/01/17 05:28 86 28 30 11/01/17 05:00 93 26 149/82 99 Mechanical Ventilator 30 11/01/17 04:00 99 11/01/17 04:00 98.8 83 24 149/46 99 Mechanical Ventilator 30 11/01/17 04:00 30 11/01/17 03:17 84 28 98 Mechanical Ventilator 30 11/01/17 03:07 81 28 97 Mechanical Ventilator 30 11/01/17 03:06 81 28 30 11/01/17 03:00 91 26 149/42 99 Mechanical Ventilator 30 11/01/17 02:00 96 26 174/56 99 Mechanical Ventilator 30 11/01/17 01:15 98.7 11/01/17 01:13 88 28 30 11/01/17 01:00 85 26 155/56 99 Mechanical Ventilator 30 11/01/17 00:00 95 11/01/17 00:00 30 11/01/17 00:00 98.7 86 20 165/57 94 Mechanical Ventilator 30 10/31/17 23:34 30 10/31/17 23:23 90 28 98 Mechanical Ventilator 30 10/31/17 23:10 90 28 98 Mechanical Ventilator 35 10/31/17 23:09 90 28 35 10/31/17 23:00 85 26 133/56 100 Mechanical Ventilator 30 10/31/17 22:00 88 20 150/44 97 Mechanical Ventilator 35 10/31/17 21:04 93 28 35 10/31/17 21:00 85 24 149/43 95 Mechanical Ventilator 35 10/31/17 20:00 35 10/31/17 20:00 91 10/31/17 20:00 98.8 86 24 140/41 99 Mechanical Ventilator 35 10/31/17 19:02 92 28 100 Mechanical Ventilator 35 10/31/17 19:00 86 25 140/48 100 Non-Rebreather 50 10/31/17 18:46 85 28 98 Mechanical Ventilator 35 10/31/17 18:43 85 28 35 10/31/17 18:00 85 26 133/56 100 Non-Rebreather 50 10/31/17 17:00 88 22 130/58 100 Non-Rebreather 50 10/31/17 16:50 92 28 35 10/31/17 16:00 97 10/31/17 16:00 90 24 145/55 100 Non-Rebreather 50 10/31/17 15:38 103 28 99 Mechanical Ventilator 100 10/31/17 15:27 95 28 100 Mechanical Ventilator 50 10/31/17 15:20 95 28 50 10/31/17 15:00 93 25 150/52 100 Non-Rebreather 60 Intake and Output 10/31/17 11/01/17 19:00 07:00 Intake Total 55 ml 183.708 ml Output Total 345 ml 515 ml Balance -290 ml -331.292 ml IV Total 55 ml 183.708 ml Output Urine Total 345 ml 515 ml # Bowel Movements 1 Laboratory Tests 11/01/17 03:50: White Blood Count 18.1H, Red Blood Count 3.51L, Hemoglobin 10.4L, Hematocrit 30.9L, Mean Corpuscular Volume 88, Mean Corpuscular Hemoglobin 29.6, Mean Corpuscular Hemoglobin Concent 33.5, Red Cell Distribution Width 13.6, Platelet Count 390, Mean Platelet Volume 6.2L, Neutrophils (%) (Auto) , Lymphocytes (%) ( Auto) , Monocytes (%) (Auto) , Eosinophils (%) (Auto) , Basophils (%) (Auto) , Differential Total Cells Counted 100, Neutrophils % (Manual) 78H, Lymphocytes % (Manual) 12L, Monocytes % (Manual) 10, Eosinophils % (Manual) 0, Basophils % ( Manual) 0, Band Neutrophils 0, Platelet Estimate Adequate, Platelet Morphology Normal, Polychromasia 1+, Hypochromasia 1+, Sodium Level 141, Potassium Level 4.4, Chloride Level 104, Carbon Dioxide Level 22, Anion Gap 15, Blood Urea Nitrogen 42H, Creatinine 2.2H, Estimat Glomerular Filtration Rate , Glucose Level 160H, Calcium Level 9.5, Magnesium Level 2.0, Total Bilirubin 1.0, Aspartate Amino Transf (AST/SGOT) 49H, Alanine Aminotransferase (ALT/SGPT) 70, Alkaline Phosphatase 125H, Total Protein 7.4, Albumin 2.2L, Globulin 5.2, Albumin/Globulin Ratio 0.4L, Random Vancomycin Level 15.2 11/01/17 10:04: Arterial Blood pH 7.318L, Arterial Blood Partial Pressure CO2 47.7H, Arterial Blood Partial Pressure O2 66.2L, Arterial Blood HCO3 23.9, Arterial Blood Oxygen Saturation 90.2L, Arterial Blood Base Excess -2.4, Nishant Test Positive Height (Feet): 5 Height (Inches): 2.00 Weight (Pounds): 202 Objective CV RR Lungs B wheezes Abd SNT. BS + E No CCE ANU DURAND Nov 01, 2017 14:55
[2017-11-01] MEDS ORDERED: Tubing IV Secondary IV ONE (17:28)
[2017-11-01] MEDS: Atorvastatin 20mg tab ORAL SCH (20:52)
[2017-11-02] VITALS (8 sets, daily range): BP systolic 127–165; BP diastolic 48–76
[2017-11-02] MEDS: Albuterol/Ipratropium 3ml neb HHN SCH ×6 (03:07→23:11)
[2017-11-02 06:00] LABS: HEMOGLOBIN 10.2 G/DL (12.0-16.0); MEAN CORPUSCULAR VOLUME 90 FL (80-99); PLATELET COUNT 334 K/UL (150-450); RED BLOOD COUNT 3.45 M/UL (4.20-5.40); RED CELL DISTRIBUTION WIDTH 14.1 % (11.6-14.8); WHITE BLOOD COUNT 18.8 K/UL (4.8-10.8)
[2017-11-02 06:22] LABS: ALANINE AMINOTRANSFERASE 55 U/L (12-78); ALBUMIN 2.1 G/DL (3.4-5.0); ALBUMIN/GLOBULIN RATIO 0.4 (1.0-2.7); ALKALINE PHOSPHATASE 110 U/L (46-116); ANION GAP 12 mmol/L (5-15); ASPARTATE AMINO TRANSFERASE 28 U/L (15-37); BILIRUBIN,TOTAL 0.7 MG/DL (0.2-1.0); BLOOD UREA NITROGEN 34 mg/dL (7-18); CALCIUM 9.3 MG/DL (8.5-10.1); CARBON DIOXIDE 25 MMOL/L (21-32); CHLORIDE 104 MMOL/L (98-107); CREATININE 1.7 MG/DL (0.55-1.30); POTASSIUM 4.2 MMOL/L (3.5-5.1); SODIUM 141 MMOL/L (136-145)
[2017-11-02 06:33] LABS: PHOSPHORUS 3.3 MG/DL (2.5-4.9)
--- NOTE | 2017-11-02 08:29 | Critical Care Progress Note ---
Assessment/Plan Assessment/Plan IMPRESSION: 1. Respiratory failure. 2. Bilateral pneumonia, possible aspiration, possible jail-acquired. 3. Hypoxemia. 4. Profound respiratory acidosis. 5. Acute respiratory failure, now mostly compensated. 6. Chronic renal failure. 7. Severe protein-calorie malnutrition. 8. Hyponatremia of unclear etiology. 9. Mild leukocytosis, possible sepsis. 10. Anemia. 11. Thrombocytosis. RECOMMENDATIONS: 1. Supportive care. 2. keep negative 3. lasix for now 4. Antibiotics and monitor cultures 5. po with caution 6. monitor for change and consider cardiac evaluation 7. subcutaneous heparin. 8. noted venous ultrasound. 9. Follow up x-ray. for change 10. Follow up ABG post extubation 11. transfuse as needed medications/laboratory data/nursing notes reviewed in detail note reviewed and edited care discussed with RN and RT Critical Care - Subjective Interval Events: extubated stable out of the ICU on oxygen ROS Limited/Unobtainable: Yes Condition: improving EKG Rhythm: Sinus Rhythm I&O: Intake and Output 11/01/17 11/02/17 19:00 07:00 Intake Total 511.292 ml Output Total 655 ml 620 ml Balance -143.708 ml -620 ml Free Water 30 ml IV Total 91.292 ml Other 390 ml Output Urine Total 655 ml 620 ml Critical Care - Objective ET-Tube: 7.5 ET Position: 24 Last 24 Hour Vital Signs Date Time Temp Pulse Resp B/P (MAP) Pulse Ox O2 Delivery O2 Flow Rate FiO2 11/02/17 08:05 96 18 99 Nasal Cannula 3.0 32 11/02/17 07:57 Nasal Cannula 3.0 32 11/02/17 07:57 95 18 96 Nasal Cannula 3.0 32 11/02/17 07:57 96 Nasal Cannula 3.0 32 11/02/17 05:00 98.1 100 22 159/73 98 Nasal Cannula 3.0 11/02/17 04:30 94 11/02/17 03:20 100 18 97 Nasal Cannula 2.0 28 11/02/17 03:09 100 20 95 Nasal Cannula 2.0 28 11/02/17 01:20 97.7 100 20 144/71 98 Nasal Cannula 4.0 11/02/17 01:00 102 22 142/58 96 Nasal Cannula 4.0 11/02/17 00:00 102 11/02/17 00:00 98.6 103 19 161/62 94 Nasal Cannula 4.0 11/01/17 23:20 102 20 98 Nasal Cannula 2.0 28 11/01/17 23:10 98 24 95 Nasal Cannula 2.0 28 11/01/17 23:00 102 22 159/60 96 Nasal Cannula 4.0 11/01/17 22:00 99 27 152/56 96 Nasal Cannula 4.0 11/01/17 21:00 102 25 147/51 100 Nasal Cannula 4.0 11/01/17 20:00 98.6 99 19 141/47 100 Nasal Cannula 4.0 11/01/17 20:00 107 11/01/17 19:20 96 20 98 Nasal Cannula 2.0 28 11/01/17 19:10 98 26 96 Nasal Cannula 2.0 28 11/01/17 19:09 96 Nasal Cannula 2.0 28 11/01/17 19:09 Nasal Cannula 2.0 28 11/01/17 19:00 92 25 158/63 100 Nasal Cannula 4.0 11/01/17 18:00 97 25 145/61 97 Nasal Cannula 4.0 11/01/17 17:00 93 17 145/63 98 Nasal Cannula 4.0 11/01/17 16:00 98.9 94 24 145/47 100 Nasal Cannula 4.0 11/01/17 16:00 97 11/01/17 15:00 105 29 152/69 99 Nasal Cannula 4.0 11/01/17 14:32 100 22 100 Nasal Cannula 4.0 36 11/01/17 14:25 99 22 96 Nasal Cannula 4.0 36 11/01/17 14:00 100 25 164/57 94 Nasal Cannula 4.0 11/01/17 13:00 106 23 155/55 95 Nasal Cannula 4.0 11/01/17 12:00 98.9 102 23 153/48 97 Nasal Cannula 4.0 11/01/17 12:00 102 11/01/17 11:20 110 24 97 Nasal Cannula 4.0 36 11/01/17 11:13 Nasal Cannula 4.0 36 11/01/17 11:12 95 Nasal Cannula 4.0 36 11/01/17 11:12 Nasal Cannula 4.0 36 11/01/17 11:11 111 28 95 Nasal Cannula 4.0 36 11/01/17 11:00 110 30 159/63 94 Mechanical Ventilator 30 2/1/18 10:00 108 30 174/58 93 Mechanical Ventilator 30 11/01/17 09:30 30 11/01/17 09:23 101 25 30 11/01/17 09:21 96 11/01/17 09:00 90 28 160/52 98 Mechanical Ventilator 30 Labs: Laboratory Tests Test 11/01/17 10:04 11/02/17 05:00 Arterial Blood pH 7.318 (7.350-7.450) Arterial Blood Partial Pressure CO2 47.7 mmHg (35.0-45.0) H Arterial Blood Partial Pressure O2 66.2 mmHg (75.0-100.0) L Arterial Blood HCO3 23.9 mmol/L (22.0-26.0) Arterial Blood Oxygen Saturation 90.2 % (92.0-98.0) L Arterial Blood Base Excess -2.4 Nishant Test Positive White Blood Count 18.8 K/UL (4.8-10.8) H Red Blood Count 3.45 M/UL (4.20-5.40) L Hemoglobin 10.2 G/DL (12.0-16.0) L Hematocrit 31.0 % (37.0-47.0) L Mean Corpuscular Volume 90 FL (80-99) Mean Corpuscular Hemoglobin 29.4 PG (27.0-31.0) Mean Corpuscular Hemoglobin Concent 32.8 G/DL (32.0-36.0) Red Cell Distribution Width 14.1 % (11.6-14.8) Platelet Count 334 K/UL (150-450) Mean Platelet Volume 6.1 FL (6.5-10.1) L Neutrophils (%) (Auto) % (45.0-75.0) Lymphocytes (%) (Auto) % (20.0-45.0) Monocytes (%) (Auto) % (1.0-10.0) Eosinophils (%) (Auto) % (0.0-3.0) Basophils (%) (Auto) % (0.0-2.0) Differential Total Cells Counted 100 Neutrophils % (Manual) 89 % (45-75) H Lymphocytes % (Manual) 5 % (20-45) L Monocytes % (Manual) 5 % (1-10) Eosinophils % (Manual) 0 % (0-3) Basophils % (Manual) 1 % (0-2) Band Neutrophils 0 % (0-8) Platelet Estimate Adequate Platelet Morphology Normal Hypochromasia 1+ Anisocytosis 1+ Sodium Level 141 MMOL/L (136-145) Potassium Level 4.2 MMOL/L (3.5-5.1) Chloride Level 104 MMOL/L (98-107) Carbon Dioxide Level 25 MMOL/L (21-32) Anion Gap 12 mmol/L (5-15) Blood Urea Nitrogen 34 mg/dL (7-18) H Creatinine 1.7 MG/DL (0.55-1.30) H Estimat Glomerular Filtration Rate mL/min (>60) Glucose Level 184 MG/DL (74-106) H Calcium Level 9.3 MG/DL (8.5-10.1) Phosphorus Level 3.3 MG/DL (2.5-4.9) Magnesium Level 2.0 MG/DL (1.8-2.4) Total Bilirubin 0.7 MG/DL (0.2-1.0) Aspartate Amino Transf (AST/SGOT) 28 U/L (15-37) Alanine Aminotransferase (ALT/SGPT) 55 U/L (12-78) Alkaline Phosphatase 110 U/L (46-116) Total Protein 7.3 G/DL (6.4-8.2) Albumin 2.1 G/DL (3.4-5.0) L Globulin 5.2 g/dL Albumin/Globulin Ratio 0.4 (1.0-2.7) L Objective: more alert HEENT: Negative. alert on oxygen NECK: Supple. No jugular venous distention. LUNGS: coarse. reduced air entry. basilar crackles CARDIAC: Normal S1 and S2. Regular rate and rhythm. Somewhat distant without clear murmurs, rubs, or gallops. ABDOMEN: Soft, nontender, nondistended. no HSM EXTREMITIES: No cyanosis or clubbing. NEUROLOGIC: back to baseline lOC SKIN: Noted and reviewed. Accucheck: 128 LOGAN PENN Nov 02, 2017 08:29
[2017-11-02] MEDS: Losartan 50mg tab ORAL SCH (09:00)
[2017-11-02] MEDS: Pantoprazole Inj IVP SCH (09:28)
[2017-11-02] MEDS: Heparin 5000 units/ml inj SUBQ SCH ×2 (09:29→20:35)
[2017-11-02] MEDS: Cefepime HCl 1 GM in NS 55 ML IVPB SCH (09:34)
--- NOTE | 2017-11-02 10:07 | GI Progress Note ---
Assessment/Plan Problems: (1) Abnormal LFTs ICD Codes: R94.5 - Abnormal results of liver function studies SNOMED: 249817929 (2) Respiratory failure ICD Codes: J96.90 - Respiratory failure, unspecified, unspecified whether with hypoxia or hypercapnia SNOMED: 227061479 Qualifiers: Qualified Codes: J96.01 - Acute respiratory failure with hypoxia; J96.02 - Acute respiratory failure with hypercapnia (3) Dyspnea ICD Codes: R06.00 - Dyspnea, unspecified SNOMED: 182677895 Qualifiers: Qualified Codes: R06.00 - Dyspnea, unspecified (4) Anemia ICD Codes: D64.9 - Anemia, unspecified SNOMED: 768754989 Status: progressing Status Narrative Discussed with Dr. Brooks. Assessment/Plan abnormal LFTs most likely due to hepatic congestion >> now normal defer GI procedures, respiratory status not stable fu ST evaluation OB stool r/o GI bleed monitor H&H, prn transfusions ppi electrolyte correction pulmonary support fu labs, LFTs Subjective Subjective hungry Objective Last 24 Hour Vital Signs Date Time Temp Pulse Resp B/P (MAP) Pulse Ox O2 Delivery O2 Flow Rate FiO2 11/02/17 09:00 127/48 11/02/17 08:05 96 18 99 Nasal Cannula 3.0 32 11/02/17 08:00 97.5 94 20 127/48 98 Nasal Cannula 3.0 11/02/17 08:00 96 11/02/17 07:57 Nasal Cannula 3.0 32 11/02/17 07:57 95 18 96 Nasal Cannula 3.0 32 11/02/17 07:57 96 Nasal Cannula 3.0 32 11/02/17 05:00 98.1 100 22 159/73 98 Nasal Cannula 3.0 11/02/17 04:30 94 11/02/17 03:20 100 18 97 Nasal Cannula 2.0 28 11/02/17 03:09 100 20 95 Nasal Cannula 2.0 28 11/02/17 01:20 97.7 100 20 144/71 98 Nasal Cannula 4.0 11/02/17 01:00 102 22 142/58 96 Nasal Cannula 4.0 11/02/17 00:00 102 11/02/17 00:00 98.6 103 19 161/62 94 Nasal Cannula 4.0 11/01/17 23:20 102 20 98 Nasal Cannula 2.0 28 11/01/17 23:10 98 24 95 Nasal Cannula 2.0 28 11/01/17 23:00 102 22 159/60 96 Nasal Cannula 4.0 11/01/17 22:00 99 27 152/56 96 Nasal Cannula 4.0 11/01/17 21:00 102 25 147/51 100 Nasal Cannula 4.0 11/01/17 20:00 98.6 99 19 141/47 100 Nasal Cannula 4.0 11/01/17 20:00 107 11/01/17 19:20 96 20 98 Nasal Cannula 2.0 28 11/01/17 19:10 98 26 96 Nasal Cannula 2.0 28 11/01/17 19:09 96 Nasal Cannula 2.0 28 11/01/17 19:09 Nasal Cannula 2.0 28 11/01/17 19:00 92 25 158/63 100 Nasal Cannula 4.0 11/01/17 18:00 97 25 145/61 97 Nasal Cannula 4.0 11/01/17 17:00 93 17 145/63 98 Nasal Cannula 4.0 11/01/17 16:00 98.9 94 24 145/47 100 Nasal Cannula 4.0 11/01/17 16:00 97 11/01/17 15:00 105 29 152/69 99 Nasal Cannula 4.0 11/01/17 14:32 100 22 100 Nasal Cannula 4.0 36 11/01/17 14:25 99 22 96 Nasal Cannula 4.0 36 11/01/17 14:00 100 25 164/57 94 Nasal Cannula 4.0 11/01/17 13:00 106 23 155/55 95 Nasal Cannula 4.0 11/01/17 12:00 98.9 102 23 153/48 97 Nasal Cannula 4.0 11/01/17 12:00 102 11/01/17 11:20 110 24 97 Nasal Cannula 4.0 36 11/01/17 11:13 Nasal Cannula 4.0 36 11/01/17 11:12 95 Nasal Cannula 4.0 36 11/01/17 11:12 Nasal Cannula 4.0 36 11/01/17 11:11 111 28 95 Nasal Cannula 4.0 36 11/01/17 11:00 110 30 159/63 94 Mechanical Ventilator 30 Intake and Output 11/01/17 11/02/17 19:00 07:00 Intake Total 511.292 ml Output Total 655 ml 620 ml Balance -143.708 ml -620 ml Free Water 30 ml IV Total 91.292 ml Other 390 ml Output Urine Total 655 ml 620 ml Laboratory Tests Test 11/02/17 05:00 11/02/17 09:39 White Blood Count 18.8 K/UL (4.8-10.8) H Red Blood Count 3.45 M/UL (4.20-5.40) L Hemoglobin 10.2 G/DL (12.0-16.0) L Hematocrit 31.0 % (37.0-47.0) L Mean Corpuscular Volume 90 FL (80-99) Mean Corpuscular Hemoglobin 29.4 PG (27.0-31.0) Mean Corpuscular Hemoglobin Concent 32.8 G/DL (32.0-36.0) Red Cell Distribution Width 14.1 % (11.6-14.8) Platelet Count 334 K/UL (150-450) Mean Platelet Volume 6.1 FL (6.5-10.1) L Neutrophils (%) (Auto) % (45.0-75.0) Lymphocytes (%) (Auto) % (20.0-45.0) Monocytes (%) (Auto) % (1.0-10.0) Eosinophils (%) (Auto) % (0.0-3.0) Basophils (%) (Auto) % (0.0-2.0) Differential Total Cells Counted 100 Neutrophils % (Manual) 89 % (45-75) H Lymphocytes % (Manual) 5 % (20-45) L Monocytes % (Manual) 5 % (1-10) Eosinophils % (Manual) 0 % (0-3) Basophils % (Manual) 1 % (0-2) Band Neutrophils 0 % (0-8) Platelet Estimate Adequate Platelet Morphology Normal Hypochromasia 1+ Anisocytosis 1+ Sodium Level 141 MMOL/L (136-145) Potassium Level 4.2 MMOL/L (3.5-5.1) Chloride Level 104 MMOL/L (98-107) Carbon Dioxide Level 25 MMOL/L (21-32) Anion Gap 12 mmol/L (5-15) Blood Urea Nitrogen 34 mg/dL (7-18) H Creatinine 1.7 MG/DL (0.55-1.30) H Estimat Glomerular Filtration Rate mL/min (>60) Glucose Level 184 MG/DL (74-106) H Calcium Level 9.3 MG/DL (8.5-10.1) Phosphorus Level 3.3 MG/DL (2.5-4.9) Magnesium Level 2.0 MG/DL (1.8-2.4) Total Bilirubin 0.7 MG/DL (0.2-1.0) Aspartate Amino Transf (AST/SGOT) 28 U/L (15-37) Alanine Aminotransferase (ALT/SGPT) 55 U/L (12-78) Alkaline Phosphatase 110 U/L (46-116) Pro-B-Type Natriuretic Peptide Pending Total Protein 7.3 G/DL (6.4-8.2) Albumin 2.1 G/DL (3.4-5.0) L Globulin 5.2 g/dL Albumin/Globulin Ratio 0.4 (1.0-2.7) L Arterial Blood pH 7.373 (7.350-7.450) Arterial Blood Partial Pressure CO2 44.9 mmHg (35.0-45.0) Arterial Blood Partial Pressure O2 82.3 mmHg (75.0-100.0) Arterial Blood HCO3 25.5 mmol/L (22.0-26.0) Arterial Blood Oxygen Saturation 94.6 % (92.0-98.0) Arterial Blood Base Excess 0.1 Nishant Test Positive Height (Feet): 5 Height (Inches): 2.00 Weight (Pounds): 198 General Appearance: WD/WN, no apparent distress, alert Cardiovascular: normal rate Respiratory/Chest: normal breath sounds, no respiratory distress, other - 2LNC Abdominal Exam: normal bowel sounds, non tender, soft Extremities: normal range of motion, non-tender Yolanda Donald N.P. Nov 02, 2017 10:07
--- NOTE | 2017-11-02 10:26 | General Progress Note ---
Assessment/Plan Assessment/Plan Resp Faiure -extubated - on tele. Anemia stable. Avoiding Narcotics + Anxiolytics. DW pt. Needs SNF for PT. Subjective Allergies: Coded Allergies: No Known Allergies (Verified , 09/30/07) Subjective No new c/o. On tele floor. Objective Last 24 Hour Vital Signs Date Time Temp Pulse Resp B/P (MAP) Pulse Ox O2 Delivery O2 Flow Rate FiO2 11/02/17 09:00 127/48 11/02/17 08:05 96 18 99 Nasal Cannula 3.0 32 11/02/17 08:00 97.5 94 20 127/48 98 Nasal Cannula 3.0 11/02/17 08:00 96 11/02/17 07:57 Nasal Cannula 3.0 32 11/02/17 07:57 95 18 96 Nasal Cannula 3.0 32 11/02/17 07:57 96 Nasal Cannula 3.0 32 11/02/17 05:00 98.1 100 22 159/73 98 Nasal Cannula 3.0 11/02/17 04:30 94 11/02/17 03:20 100 18 97 Nasal Cannula 2.0 28 11/02/17 03:09 100 20 95 Nasal Cannula 2.0 28 11/02/17 01:20 97.7 100 20 144/71 98 Nasal Cannula 4.0 11/02/17 01:00 102 22 142/58 96 Nasal Cannula 4.0 11/02/17 00:00 102 11/02/17 00:00 98.6 103 19 161/62 94 Nasal Cannula 4.0 11/01/17 23:20 102 20 98 Nasal Cannula 2.0 28 11/01/17 23:10 98 24 95 Nasal Cannula 2.0 28 11/01/17 23:00 102 22 159/60 96 Nasal Cannula 4.0 11/01/17 22:00 99 27 152/56 96 Nasal Cannula 4.0 11/01/17 21:00 102 25 147/51 100 Nasal Cannula 4.0 11/01/17 20:00 98.6 99 19 141/47 100 Nasal Cannula 4.0 11/01/17 20:00 107 11/01/17 19:20 96 20 98 Nasal Cannula 2.0 28 11/01/17 19:10 98 26 96 Nasal Cannula 2.0 28 11/01/17 19:09 96 Nasal Cannula 2.0 28 11/01/17 19:09 Nasal Cannula 2.0 28 11/01/17 19:00 92 25 158/63 100 Nasal Cannula 4.0 11/01/17 18:00 97 25 145/61 97 Nasal Cannula 4.0 11/01/17 17:00 93 17 145/63 98 Nasal Cannula 4.0 11/01/17 16:00 98.9 94 24 145/47 100 Nasal Cannula 4.0 11/01/17 16:00 97 11/01/17 15:00 105 29 152/69 99 Nasal Cannula 4.0 11/01/17 14:32 100 22 100 Nasal Cannula 4.0 36 11/01/17 14:25 99 22 96 Nasal Cannula 4.0 36 11/01/17 14:00 100 25 164/57 94 Nasal Cannula 4.0 11/01/17 13:00 106 23 155/55 95 Nasal Cannula 4.0 11/01/17 12:00 98.9 102 23 153/48 97 Nasal Cannula 4.0 11/01/17 12:00 102 11/01/17 11:20 110 24 97 Nasal Cannula 4.0 36 11/01/17 11:13 Nasal Cannula 4.0 36 11/01/17 11:12 95 Nasal Cannula 4.0 36 11/01/17 11:12 Nasal Cannula 4.0 36 11/01/17 11:11 111 28 95 Nasal Cannula 4.0 36 11/01/17 11:00 110 30 159/63 94 Mechanical Ventilator 30 Intake and Output 11/01/17 11/02/17 19:00 07:00 Intake Total 511.292 ml Output Total 655 ml 620 ml Balance -143.708 ml -620 ml Free Water 30 ml IV Total 91.292 ml Other 390 ml Output Urine Total 655 ml 620 ml Laboratory Tests 11/02/17 05:00: White Blood Count 18.8H, Red Blood Count 3.45L, Hemoglobin 10.2L, Hematocrit 31.0L, Mean Corpuscular Volume 90, Mean Corpuscular Hemoglobin 29.4, Mean Corpuscular Hemoglobin Concent 32.8, Red Cell Distribution Width 14.1, Platelet Count 334, Mean Platelet Volume 6.1L, Neutrophils (%) (Auto) , Lymphocytes (%) ( Auto) , Monocytes (%) (Auto) , Eosinophils (%) (Auto) , Basophils (%) (Auto) , Differential Total Cells Counted 100, Neutrophils % (Manual) 89H, Lymphocytes % (Manual) 5L, Monocytes % (Manual) 5, Eosinophils % (Manual) 0, Basophils % ( Manual) 1, Band Neutrophils 0, Platelet Estimate Adequate, Platelet Morphology Normal, Hypochromasia 1+, Anisocytosis 1+, Sodium Level 141, Potassium Level 4.2 , Chloride Level 104, Carbon Dioxide Level 25, Anion Gap 12, Blood Urea Nitrogen 34H, Creatinine 1.7H, Estimat Glomerular Filtration Rate , Glucose Level 184H, Calcium Level 9.3, Phosphorus Level 3.3, Magnesium Level 2.0, Total Bilirubin 0.7, Aspartate Amino Transf (AST/SGOT) 28, Alanine Aminotransferase ( ALT/SGPT) 55, Alkaline Phosphatase 110, Pro-B-Type Natriuretic Peptide [Pending] , Total Protein 7.3, Albumin 2.1L, Globulin 5.2, Albumin/Globulin Ratio 0.4L 11/02/17 09:39: Arterial Blood pH 7.373, Arterial Blood Partial Pressure CO2 44.9, Arterial Blood Partial Pressure O2 82.3, Arterial Blood HCO3 25.5, Arterial Blood Oxygen Saturation 94.6, Arterial Blood Base Excess 0.1, Nishant Test Positive Height (Feet): 5 Height (Inches): 2.00 Weight (Pounds): 198 Objective CV RR Lungs B wheezes Abd SNT. BS + E No CCE ANU DURAND Nov 02, 2017 10:26
--- NOTE | 2017-11-02 14:17 | Diagnostic Imaging Report ---
Indication: Dyspnea Comparison: 10/31/2017 A single view chest radiograph was obtained. Findings: Interstitial densities are present bilaterally. Bilateral pleural effusions and cardiomegaly noted as well. Vascularity is prominent with of the hazy vessel margins. IMPRESSION: CHF. Postextubation
[2017-11-02] MEDS: Atorvastatin 20mg tab ORAL SCH (20:31)
[2017-11-03] VITALS (7 sets, daily range): BP systolic 149–181; BP diastolic 70–85
[2017-11-03] MEDS: Albuterol/Ipratropium 3ml neb HHN SCH ×6 (03:39→23:47)
[2017-11-03 07:52] LABS: HEMATOCRIT 32.7 % (37.0-47.0); MEAN CORPUSCULAR VOLUME 90 FL (80-99); PLATELET COUNT 361 K/UL (150-450); RED BLOOD COUNT 3.65 M/UL (4.20-5.40); RED CELL DISTRIBUTION WIDTH 14.2 % (11.6-14.8); WHITE BLOOD COUNT 19.3 K/UL (4.8-10.8)
[2017-11-03 08:36] LABS: ALANINE AMINOTRANSFERASE 37 U/L (12-78); ALBUMIN 2.3 G/DL (3.4-5.0); ALBUMIN/GLOBULIN RATIO 0.4 (1.0-2.7); ALKALINE PHOSPHATASE 109 U/L (46-116); ANION GAP 8 mmol/L (5-15); ASPARTATE AMINO TRANSFERASE 20 U/L (15-37); BLOOD UREA NITROGEN 29 mg/dL (7-18); CALCIUM 9.8 MG/DL (8.5-10.1); CARBON DIOXIDE 27 MMOL/L (21-32); CHLORIDE 105 MMOL/L (98-107); CREATININE 1.6 MG/DL (0.55-1.30); POTASSIUM 4.2 MMOL/L (3.5-5.1); SODIUM 140 MMOL/L (136-145)
[2017-11-03] MEDS: Pantoprazole Inj IVP SCH (08:36)
[2017-11-03] MEDS: Losartan 50mg tab ORAL SCH ×2 (08:37→22:24)
[2017-11-03] MEDS: Heparin 5000 units/ml inj SUBQ SCH ×2 (08:39→22:27)
[2017-11-03] MEDS ORDERED: Vancomycin 1gm/D5W 275ml IVPB SCH ×2 (09:00)
[2017-11-03] MEDS ORDERED: Vancomycin 1 GM in D5W 275 ML IVPB SCH (09:00)
[2017-11-03] MEDS: Cefepime HCl 1 GM in NS 55 ML IVPB SCH (09:44)
--- NOTE | 2017-11-03 10:50 | General Progress Note ---
Assessment/Plan Problem List: (1) Abnormal LFTs ICD Codes: R94.5 - Abnormal results of liver function studies SNOMED: 162597160 (2) Anemia ICD Codes: D64.9 - Anemia, unspecified SNOMED: 104588813 (3) PNA (pneumonia) ICD Codes: J18.9 - Pneumonia, unspecified organism SNOMED: 508010172 Qualifiers: Qualified Codes: J18.9 - Pneumonia, unspecified organism (4) CKD (chronic kidney disease) ICD Codes: N18.9 - Chronic kidney disease, unspecified SNOMED: 201956170 Qualifiers: Qualified Codes: N18.9 - Chronic kidney disease, unspecified (5) Constipation ICD Codes: K59.00 - Constipation, unspecified SNOMED: 48343809 Assessment/Plan bowel regimen add supplement add laxatives GI procedures on hold Subjective ROS Limited/Unobtainable: Yes Allergies: Coded Allergies: No Known Allergies (Verified , 09/30/07) Subjective no abd pain poor po intake Objective Last 24 Hour Vital Signs Date Time Temp Pulse Resp B/P (MAP) Pulse Ox O2 Delivery O2 Flow Rate FiO2 11/03/17 08:37 166/72 11/03/17 08:00 98.4 112 19 166/72 92 Nasal Cannula 4.0 11/03/17 08:00 112 11/03/17 07:00 118 20 96 Nasal Cannula 4.0 36 11/03/17 06:49 117 20 94 Nasal Cannula 4.0 36 11/03/17 06:49 Nasal Cannula 4.0 36 11/03/17 06:49 91 Nasal Cannula 4.0 36 11/03/17 04:00 98.6 108 24 160/77 93 Nasal Cannula 4.0 11/03/17 04:00 104 11/03/17 03:49 78 18 97 Nasal Cannula 3.0 32 11/03/17 03:39 107 18 92 Nasal Cannula 3.0 32 11/03/17 00:00 98.6 108 24 161/71 93 Nasal Cannula 3.0 11/02/17 23:54 106 11/02/17 23:19 101 18 99 Nasal Cannula 3.0 32 11/02/17 23:11 104 18 93 Nasal Cannula 3.0 32 11/02/17 20:00 98.2 104 26 165/76 94 Nasal Cannula 3.0 11/02/17 20:00 107 11/02/17 19:47 101 18 98 Nasal Cannula 3.0 32 11/02/17 19:42 Nasal Cannula 3.0 32 11/02/17 19:42 93 Nasal Cannula 3.0 32 11/02/17 19:41 100 18 93 Nasal Cannula 3.0 32 11/02/17 16:25 98 18 96 Nasal Cannula 3.0 32 11/02/17 16:17 101 18 93 Nasal Cannula 3.0 32 11/02/17 16:00 98.2 102 24 160/67 94 Nasal Cannula 3.0 11/02/17 16:00 103 11/02/17 13:03 100 18 99 Nasal Cannula 3.0 32 11/02/17 12:55 100 18 98 Nasal Cannula 3.0 32 11/02/17 12:00 101 11/02/17 12:00 97.9 100 18 158/66 96 Nasal Cannula 3.0 Intake and Output 11/02/17 11/03/17 19:00 07:00 Intake Total 55 ml Output Total 1150 ml 350 ml Balance -1095 ml -350 ml IV Total 55 ml Output Urine Total 1150 ml 350 ml Laboratory Tests 11/03/17 06:05: White Blood Count 19.3H, Red Blood Count 3.65L, Hemoglobin 11.0L, Hematocrit 32.7L, Mean Corpuscular Volume 90, Mean Corpuscular Hemoglobin 30.1, Mean Corpuscular Hemoglobin Concent 33.6, Red Cell Distribution Width 14.2, Platelet Count 361, Mean Platelet Volume 6.0L, Neutrophils (%) (Auto) , Lymphocytes (%) ( Auto) , Monocytes (%) (Auto) , Eosinophils (%) (Auto) , Basophils (%) (Auto) , Neutrophils % (Manual) [Pending], Lymphocytes % (Manual) [Pending], Platelet Estimate [Pending], Platelet Morphology [Pending], Sodium Level 140, Potassium Level 4.2, Chloride Level 105, Carbon Dioxide Level 27, Anion Gap 8, Blood Urea Nitrogen 29H, Creatinine 1.6H, Estimat Glomerular Filtration Rate , Glucose Level 255H, Calcium Level 9.8, Total Bilirubin 1.0, Aspartate Amino Transf (AST/ SGOT) 20, Alanine Aminotransferase (ALT/SGPT) 37, Alkaline Phosphatase 109, Pro- B-Type Natriuretic Peptide 02125E, Total Protein 7.9, Albumin 2.3L, Globulin 5.6 , Albumin/Globulin Ratio 0.4L Height (Feet): 5 Height (Inches): 2.00 Weight (Pounds): 199 General Appearance: no apparent distress EENT: normal ENT inspection Neck: supple Cardiovascular: normal rate Respiratory/Chest: decreased breath sounds Abdomen: normal bowel sounds, non tender, soft Extremities: non-tender DARWIN BROWN Nov 03, 2017 10:50
[2017-11-03] MEDS ORDERED: Miralax 17gm pkt ORAL PRN (11:00)
--- NOTE | 2017-11-03 11:01 | Critical Care Progress Note ---
Assessment/Plan Assessment/Plan IMPRESSION: 1. Respiratory failure. 2. Bilateral pneumonia, resolved- now with edema 3. Hypoxemia. 4. Profound respiratory acidosis. 5. Acute respiratory failure, now mostly compensated. 6. Chronic renal failure. 7. Severe protein-calorie malnutrition. 8. Hyponatremia of unclear etiology. 9. Mild leukocytosis, possible sepsis. 10. Anemia. 11. Thrombocytosis. RECOMMENDATIONS: 1. Supportive care. 2. keep negative 3. lasix daily 4. Antibiotics and monitor cultures 5. po with caution 6. monitor for change and consider cardiac evaluation 7. subcutaneous heparin. 8. noted venous ultrasound. 9. Follow up x-ray. for change 10. Follow and monitor po medications/laboratory data/nursing notes reviewed in detail note reviewed and edited care discussed with RN and RT Critical Care - Subjective Interval Events: care noted comfortable poor po EKG Rhythm: Sinus Rhythm I&O: Intake and Output 11/02/17 11/03/17 19:00 07:00 Intake Total 55 ml Output Total 1150 ml 350 ml Balance -1095 ml -350 ml IV Total 55 ml Output Urine Total 1150 ml 350 ml Critical Care - Objective CXR: CHF ET-Tube: 7.5 ET Position: 24 Last 24 Hour Vital Signs Date Time Temp Pulse Resp B/P (MAP) Pulse Ox O2 Delivery O2 Flow Rate FiO2 11/03/17 08:37 166/72 11/03/17 08:00 98.4 112 19 166/72 92 Nasal Cannula 4.0 11/03/17 08:00 112 11/03/17 07:00 118 20 96 Nasal Cannula 4.0 36 11/03/17 06:49 117 20 94 Nasal Cannula 4.0 36 11/03/17 06:49 Nasal Cannula 4.0 36 11/03/17 06:49 91 Nasal Cannula 4.0 36 11/03/17 04:00 98.6 108 24 160/77 93 Nasal Cannula 4.0 11/03/17 04:00 104 11/03/17 03:49 78 18 97 Nasal Cannula 3.0 32 11/03/17 03:39 107 18 92 Nasal Cannula 3.0 32 11/03/17 00:00 98.6 108 24 161/71 93 Nasal Cannula 3.0 11/02/17 23:54 106 11/02/17 23:19 101 18 99 Nasal Cannula 3.0 32 11/02/17 23:11 104 18 93 Nasal Cannula 3.0 32 11/02/17 20:00 98.2 104 26 165/76 94 Nasal Cannula 3.0 11/02/17 20:00 107 11/02/17 19:47 101 18 98 Nasal Cannula 3.0 32 11/02/17 19:42 Nasal Cannula 3.0 32 11/02/17 19:42 93 Nasal Cannula 3.0 32 11/02/17 19:41 100 18 93 Nasal Cannula 3.0 32 11/02/17 16:25 98 18 96 Nasal Cannula 3.0 32 11/02/17 16:17 101 18 93 Nasal Cannula 3.0 32 11/02/17 16:00 98.2 102 24 160/67 94 Nasal Cannula 3.0 11/02/17 16:00 103 11/02/17 13:03 100 18 99 Nasal Cannula 3.0 32 11/02/17 12:55 100 18 98 Nasal Cannula 3.0 32 11/02/17 12:00 101 11/02/17 12:00 97.9 100 18 158/66 96 Nasal Cannula 3.0 Labs: Laboratory Tests Test 11/03/17 06:05 White Blood Count 19.3 K/UL (4.8-10.8) H Red Blood Count 3.65 M/UL (4.20-5.40) L Hemoglobin 11.0 G/DL (12.0-16.0) L Hematocrit 32.7 % (37.0-47.0) L Mean Corpuscular Volume 90 FL (80-99) Mean Corpuscular Hemoglobin 30.1 PG (27.0-31.0) Mean Corpuscular Hemoglobin Concent 33.6 G/DL (32.0-36.0) Red Cell Distribution Width 14.2 % (11.6-14.8) Platelet Count 361 K/UL (150-450) Mean Platelet Volume 6.0 FL (6.5-10.1) L Neutrophils (%) (Auto) % (45.0-75.0) Lymphocytes (%) (Auto) % (20.0-45.0) Monocytes (%) (Auto) % (1.0-10.0) Eosinophils (%) (Auto) % (0.0-3.0) Basophils (%) (Auto) % (0.0-2.0) Neutrophils % (Manual) Pending Lymphocytes % (Manual) Pending Platelet Estimate Pending Platelet Morphology Pending Sodium Level 140 MMOL/L (136-145) Potassium Level 4.2 MMOL/L (3.5-5.1) Chloride Level 105 MMOL/L (98-107) Carbon Dioxide Level 27 MMOL/L (21-32) Anion Gap 8 mmol/L (5-15) Blood Urea Nitrogen 29 mg/dL (7-18) H Creatinine 1.6 MG/DL (0.55-1.30) H Estimat Glomerular Filtration Rate mL/min (>60) Glucose Level 255 MG/DL (74-106) H Calcium Level 9.8 MG/DL (8.5-10.1) Total Bilirubin 1.0 MG/DL (0.2-1.0) Aspartate Amino Transf (AST/SGOT) 20 U/L (15-37) Alanine Aminotransferase (ALT/SGPT) 37 U/L (12-78) Alkaline Phosphatase 109 U/L (46-116) Pro-B-Type Natriuretic Peptide 04364 pg/mL (0-125) H Total Protein 7.9 G/DL (6.4-8.2) Albumin 2.3 G/DL (3.4-5.0) L Globulin 5.6 g/dL Albumin/Globulin Ratio 0.4 (1.0-2.7) L Objective: more alert HEENT: Negative. alert on oxygen NECK: Supple. No jugular venous distention. LUNGS: coarse. reduced air entry. basilar crackles with minimal change CARDIAC: Normal S1 and S2. Regular rate and rhythm. Somewhat distant without clear murmurs, rubs, or gallops. ABDOMEN: Soft, nontender, nondistended. no HSM EXTREMITIES: No cyanosis or clubbing. NEUROLOGIC: back to baseline lOC SKIN: Noted and reviewed. Accucheck: 128 LOGAN PENN Nov 03, 2017 11:01
--- NOTE | 2017-11-03 13:20 | General Progress Note ---
Assessment/Plan Assessment/Plan Resp Faiure -extubated - on tele. Anemia stable. Avoiding Narcotics + Anxiolytics. DW pt. Needs SNF for PT. Subjective Allergies: Coded Allergies: No Known Allergies (Verified , 09/30/07) Subjective No new c/o. On tele floor. Objective Last 24 Hour Vital Signs Date Time Temp Pulse Resp B/P (MAP) Pulse Ox O2 Delivery O2 Flow Rate FiO2 11/03/17 12:00 98.2 109 19 168/77 92 Venturi Mask 12.0 50 11/03/17 11:12 108 22 96 Nasal Cannula 4.0 36 11/03/17 11:01 108 22 93 Nasal Cannula 4.0 36 11/03/17 08:37 166/72 11/03/17 08:00 98.4 112 19 166/72 92 Nasal Cannula 4.0 11/03/17 08:00 112 11/03/17 07:00 118 20 96 Nasal Cannula 4.0 36 11/03/17 06:49 117 20 94 Nasal Cannula 4.0 36 11/03/17 06:49 Nasal Cannula 4.0 36 11/03/17 06:49 91 Nasal Cannula 4.0 36 11/03/17 04:00 98.6 108 24 160/77 93 Nasal Cannula 4.0 11/03/17 04:00 104 11/03/17 03:49 78 18 97 Nasal Cannula 3.0 32 11/03/17 03:39 107 18 92 Nasal Cannula 3.0 32 11/03/17 00:00 98.6 108 24 161/71 93 Nasal Cannula 3.0 11/02/17 23:54 106 11/02/17 23:19 101 18 99 Nasal Cannula 3.0 32 11/02/17 23:11 104 18 93 Nasal Cannula 3.0 32 11/02/17 20:00 98.2 104 26 165/76 94 Nasal Cannula 3.0 11/02/17 20:00 107 11/02/17 19:47 101 18 98 Nasal Cannula 3.0 32 11/02/17 19:42 Nasal Cannula 3.0 32 11/02/17 19:42 93 Nasal Cannula 3.0 32 11/02/17 19:41 100 18 93 Nasal Cannula 3.0 32 11/02/17 16:25 98 18 96 Nasal Cannula 3.0 32 11/02/17 16:17 101 18 93 Nasal Cannula 3.0 32 11/02/17 16:00 98.2 102 24 160/67 94 Nasal Cannula 3.0 11/02/17 16:00 103 Intake and Output 11/02/17 11/03/17 19:00 07:00 Intake Total 55 ml Output Total 1150 ml 350 ml Balance -1095 ml -350 ml IV Total 55 ml Output Urine Total 1150 ml 350 ml Laboratory Tests 11/03/17 06:05: White Blood Count 19.3H, Red Blood Count 3.65L, Hemoglobin 11.0L, Hematocrit 32.7L, Mean Corpuscular Volume 90, Mean Corpuscular Hemoglobin 30.1, Mean Corpuscular Hemoglobin Concent 33.6, Red Cell Distribution Width 14.2, Platelet Count 361, Mean Platelet Volume 6.0L, Neutrophils (%) (Auto) , Lymphocytes (%) ( Auto) , Monocytes (%) (Auto) , Eosinophils (%) (Auto) , Basophils (%) (Auto) , Differential Total Cells Counted 100, Neutrophils % (Manual) 90H, Lymphocytes % (Manual) 4L, Monocytes % (Manual) 6, Eosinophils % (Manual) 0, Basophils % ( Manual) 0, Band Neutrophils 0, Platelet Estimate Adequate, Platelet Morphology Normal, Hypochromasia 1+, Anisocytosis 1+, Sodium Level 140, Potassium Level 4.2 , Chloride Level 105, Carbon Dioxide Level 27, Anion Gap 8, Blood Urea Nitrogen 29H, Creatinine 1.6H, Estimat Glomerular Filtration Rate , Glucose Level 255H, Calcium Level 9.8, Total Bilirubin 1.0, Aspartate Amino Transf (AST/SGOT) 20, Alanine Aminotransferase (ALT/SGPT) 37, Alkaline Phosphatase 109, Pro-B-Type Natriuretic Peptide 27599Q, Total Protein 7.9, Albumin 2.3L, Globulin 5.6, Albumin/Globulin Ratio 0.4L Height (Feet): 5 Height (Inches): 2.00 Weight (Pounds): 199 Objective CV RR Lungs B wheezes Abd SNT. BS + E No CCE ANU DURAND Nov 03, 2017 13:20
[2017-11-03] MEDS: Docusate 100mg cap ORAL SCH (18:36)
[2017-11-03] MEDS: Atorvastatin 20mg tab ORAL SCH (22:26)
[2017-11-04] VITALS: BP 150/73
[2017-11-04] MEDS: Albuterol/Ipratropium 3ml neb HHN SCH ×6 (03:28→23:14)
[2017-11-04 04:00] VITALS: BP 186/79
[2017-11-04 04:41] LABS: HEMATOCRIT 31.3 % (37.0-47.0); HEMOGLOBIN 10.3 G/DL (12.0-16.0); MEAN CORPUSCULAR VOLUME 90 FL (80-99); PLATELET COUNT 288 K/UL (150-450); RED BLOOD COUNT 3.47 M/UL (4.20-5.40); RED CELL DISTRIBUTION WIDTH 14.5 % (11.6-14.8); WHITE BLOOD COUNT 18.5 K/UL (4.8-10.8)
[2017-11-04 05:08] LABS: ALANINE AMINOTRANSFERASE 31 U/L (12-78); ALBUMIN 2.2 G/DL (3.4-5.0); ALBUMIN/GLOBULIN RATIO 0.4 (1.0-2.7); ALKALINE PHOSPHATASE 97 U/L (46-116); ANION GAP 6 mmol/L (5-15); ASPARTATE AMINO TRANSFERASE 17 U/L (15-37); BILIRUBIN,TOTAL 1.2 MG/DL (0.2-1.0); BLOOD UREA NITROGEN 29 mg/dL (7-18); CALCIUM 9.5 MG/DL (8.5-10.1); CARBON DIOXIDE 30 MMOL/L (21-32); CHLORIDE 107 MMOL/L (98-107); CREATININE 1.5 MG/DL (0.55-1.30); POTASSIUM 4.5 MMOL/L (3.5-5.1); SODIUM 143 MMOL/L (136-145)
[2017-11-04 05:24] LABS: BILIRUBIN,DIRECT 0.5 MG/DL (0.0-0.3)
[2017-11-04] MEDS ORDERED: Vancomycin 1gm inj IVPB ONE (06:00)
[2017-11-04] MEDS ORDERED: Vancomycin 1gm/D5W 275ml IVPB ONE ×2 (06:00)
[2017-11-04] MEDS: Losartan 50mg tab ORAL SCH ×2 (08:26→21:59)
[2017-11-04] MEDS: Pantoprazole Inj IVP SCH (08:27)
[2017-11-04] MEDS: Docusate 100mg cap ORAL SCH ×2 (08:27→17:02)
[2017-11-04] MEDS: Heparin 5000 units/ml inj SUBQ SCH ×2 (08:35→22:01)
--- NOTE | 2017-11-04 09:11 | General Progress Note ---
Assessment/Plan Problem List: (1) Abnormal LFTs ICD Codes: R94.5 - Abnormal results of liver function studies SNOMED: 381166774 (2) Anemia ICD Codes: D64.9 - Anemia, unspecified SNOMED: 108645396 (3) PNA (pneumonia) ICD Codes: J18.9 - Pneumonia, unspecified organism SNOMED: 708815046 Qualifiers: Qualified Codes: J18.9 - Pneumonia, unspecified organism (4) CKD (chronic kidney disease) ICD Codes: N18.9 - Chronic kidney disease, unspecified SNOMED: 426736782 Qualifiers: Qualified Codes: N18.9 - Chronic kidney disease, unspecified (5) Constipation ICD Codes: K59.00 - Constipation, unspecified SNOMED: 32995842 Assessment/Plan bowel regimen supplement GI procedures on hold fu pulm recs fu labs Subjective ROS Limited/Unobtainable: No Allergies: Coded Allergies: No Known Allergies (Verified , 09/30/07) Subjective no abd pain poor po intake no bm on oxygen mask since last night Objective Last 24 Hour Vital Signs Date Time Temp Pulse Resp B/P (MAP) Pulse Ox O2 Delivery O2 Flow Rate FiO2 11/04/17 08:26 177/72 11/04/17 08:25 177/72 11/04/17 07:13 101 20 97 Venturi Mask 12.0 50 11/04/17 07:10 103 20 96 Venturi Mask 12.0 50 11/04/17 07:10 96 Venturi Mask 12.0 50 11/04/17 07:10 Venturi Mask 12.0 50 11/04/17 04:37 186/79 11/04/17 04:00 97.8 110 30 186/79 95 Venturi Mask 12.0 50 11/04/17 03:43 104 20 95 Venturi Mask 12.0 50 11/04/17 03:39 113 11/04/17 03:28 102 20 93 Venturi Mask 12.0 50 11/04/17 00:00 98.3 116 30 150/73 96 Venturi Mask 12.0 50 11/03/17 23:47 110 20 94 Venturi Mask 12.0 50 11/03/17 23:47 116 20 96 Venturi Mask 12.0 50 11/03/17 23:45 117 11/03/17 22:24 145/73 11/03/17 20:00 110 11/03/17 20:00 97.4 87 34 149/70 93 Venturi Mask 12.0 50 11/03/17 19:27 115 20 94 Venturi Mask 12.0 50 11/03/17 19:24 92 Nasal Cannula 4.0 36 11/03/17 19:24 Nasal Cannula 4.0 36 11/03/17 19:23 115 23 92 Venturi Mask 12.0 50 11/03/17 17:03 168/73 11/03/17 16:27 183/93 11/03/17 16:00 98.2 113 21 181/85 97 Venturi Mask 12.0 50 11/03/17 16:00 110 11/03/17 14:35 106 20 99 Venturi Mask 12.0 50 11/03/17 14:21 107 22 96 Venturi Mask 12.0 50 11/03/17 12:00 98.2 109 19 168/77 92 Venturi Mask 12.0 50 11/03/17 12:00 117 11/03/17 11:12 108 22 96 Nasal Cannula 4.0 36 11/03/17 11:01 108 22 93 Nasal Cannula 4.0 36 Intake and Output 11/03/17 11/04/17 19:00 07:00 Intake Total 55 ml 1320 ml Output Total 600 ml 600 ml Balance -545 ml 720 ml Intake Oral 1220 ml IV Total 55 ml 100 ml Output Urine Total 600 ml 600 ml Laboratory Tests 11/04/17 04:30: White Blood Count 18.5H, Red Blood Count 3.47L, Hemoglobin 10.3L, Hematocrit 31.3L, Mean Corpuscular Volume 90, Mean Corpuscular Hemoglobin 29.8, Mean Corpuscular Hemoglobin Concent 33.1, Red Cell Distribution Width 14.5, Platelet Count 288, Mean Platelet Volume 5.6L, Neutrophils (%) (Auto) , Lymphocytes (%) ( Auto) , Monocytes (%) (Auto) , Eosinophils (%) (Auto) , Basophils (%) (Auto) , Differential Total Cells Counted 100, Neutrophils % (Manual) 93H, Lymphocytes % (Manual) 4L, Monocytes % (Manual) 2, Eosinophils % (Manual) 0, Basophils % ( Manual) 0, Band Neutrophils 1, Platelet Estimate Adequate, Platelet Morphology Normal, Sodium Level 143, Potassium Level 4.5, Chloride Level 107, Carbon Dioxide Level 30, Anion Gap 6, Blood Urea Nitrogen 29H, Creatinine 1.5H, Estimat Glomerular Filtration Rate , Glucose Level 294H, Calcium Level 9.5, Total Bilirubin 1.2H, Direct Bilirubin 0.5H, Aspartate Amino Transf (AST/SGOT) 17, Alanine Aminotransferase (ALT/SGPT) 31, Alkaline Phosphatase 97, Total Protein 7.2, Albumin 2.2L, Globulin 5.0, Albumin/Globulin Ratio 0.4L, Vancomycin Level Trough 6.3 Height (Feet): 5 Height (Inches): 2.00 Weight (Pounds): 200 General Appearance: lethargic EENT: normal ENT inspection Neck: supple Cardiovascular: tachycardia Respiratory/Chest: respiratory distress, decreased breath sounds Abdomen: normal bowel sounds, non tender, soft Extremities: non-tender DARWIN BROWN Nov 04, 2017 09:11
[2017-11-04 10:07] VITALS: BP 177/72
[2017-11-04] MEDS ORDERED: D5W 275ml ONE ×2 (10:15→18:15)
[2017-11-04] MEDS ORDERED: Tubing IV Secondary IV ONE ×3 (10:15→18:15)
[2017-11-04] MEDS: Cefepime HCl 1 GM in NS 55 ML IVPB SCH (10:24)
[2017-11-04 12:00] VITALS: BP 162/74
--- NOTE | 2017-11-04 12:36 | General Progress Note ---
Assessment/Plan Assessment/Plan Resp Faiure -extubated - on tele. Anemia stable. Avoiding Narcotics + Anxiolytics. DW pt. Needs SNF for PT. Check Swallow mechanism. Subjective Allergies: Coded Allergies: No Known Allergies (Verified , 09/30/07) Subjective No new c/o. On tele floor. Objective Last 24 Hour Vital Signs Date Time Temp Pulse Resp B/P (MAP) Pulse Ox O2 Delivery O2 Flow Rate FiO2 11/04/17 12:00 162/74 11/04/17 10:51 104 20 96 Venturi Mask 12.0 50 18 10:51 106 20 97 Venturi Mask 12.0 50 11/04/17 10:07 97.9 109 22 177/72 95 Venturi Mask 12.0 11/04/17 08:26 177/72 11/04/17 08:25 177/72 11/04/17 08:00 97.9 109 11/04/17 08:00 105 11/04/17 07:13 101 20 97 Venturi Mask 12.0 50 11/04/17 07:10 103 20 96 Venturi Mask 12.0 50 18 07:10 96 Venturi Mask 12.0 50 11/04/17 07:10 Venturi Mask 12.0 50 18 04:37 186/79 11/04/17 04:00 97.8 110 30 186/79 95 Venturi Mask 12.0 50 18 03:43 104 20 95 Venturi Mask 12.0 50 18 03:39 113 18 03:28 102 20 93 Venturi Mask 12.0 50 11/04/17 00:00 98.3 116 30 150/73 96 Venturi Mask 12.0 50 18 23:47 110 20 94 Venturi Mask 12.0 50 18 23:47 116 20 96 Venturi Mask 12.0 50 18 23:45 117 18 22:24 145/73 218 20:00 110 18 20:00 97.4 87 34 149/70 93 Venturi Mask 12.0 50 18 19:27 115 20 94 Venturi Mask 12.0 50 18 19:24 92 Nasal Cannula 4.0 36 2/3/18 19:24 Nasal Cannula 4.0 36 11/03/17 19:23 115 23 92 Venturi Mask 12.0 50 11/03/17 17:03 168/73 11/03/17 16:27 183/93 11/03/17 16:00 98.2 113 21 181/85 97 Venturi Mask 12.0 50 11/03/17 16:00 110 11/03/17 14:35 106 20 99 Venturi Mask 12.0 50 11/03/17 14:21 107 22 96 Venturi Mask 12.0 50 Intake and Output 11/03/17 11/04/17 19:00 07:00 Intake Total 55 ml 1320 ml Output Total 600 ml 600 ml Balance -545 ml 720 ml Intake Oral 1220 ml IV Total 55 ml 100 ml Output Urine Total 600 ml 600 ml Laboratory Tests 11/04/17 04:30: White Blood Count 18.5H, Red Blood Count 3.47L, Hemoglobin 10.3L, Hematocrit 31.3L, Mean Corpuscular Volume 90, Mean Corpuscular Hemoglobin 29.8, Mean Corpuscular Hemoglobin Concent 33.1, Red Cell Distribution Width 14.5, Platelet Count 288, Mean Platelet Volume 5.6L, Neutrophils (%) (Auto) , Lymphocytes (%) ( Auto) , Monocytes (%) (Auto) , Eosinophils (%) (Auto) , Basophils (%) (Auto) , Differential Total Cells Counted 100, Neutrophils % (Manual) 93H, Lymphocytes % (Manual) 4L, Monocytes % (Manual) 2, Eosinophils % (Manual) 0, Basophils % ( Manual) 0, Band Neutrophils 1, Platelet Estimate Adequate, Platelet Morphology Normal, Sodium Level 143, Potassium Level 4.5, Chloride Level 107, Carbon Dioxide Level 30, Anion Gap 6, Blood Urea Nitrogen 29H, Creatinine 1.5H, Estimat Glomerular Filtration Rate , Glucose Level 294H, Calcium Level 9.5, Total Bilirubin 1.2H, Direct Bilirubin 0.5H, Aspartate Amino Transf (AST/SGOT) 17, Alanine Aminotransferase (ALT/SGPT) 31, Alkaline Phosphatase 97, Total Protein 7.2, Albumin 2.2L, Globulin 5.0, Albumin/Globulin Ratio 0.4L, Vancomycin Level Trough 6.3 Height (Feet): 5 Height (Inches): 2.00 Weight (Pounds): 200 Objective CV RR Lungs B wheezes Abd SNT. BS + E No CCE ANU DURAND Nov 04, 2017 12:36
[2017-11-04] MEDS: Lactulose 20gm/30ml UDC ORAL SCH ×2 (13:48→17:02)
[2017-11-04 16:00] VITALS: BP 177/84
--- NOTE | 2017-11-04 16:06 | Critical Care Progress Note ---
Assessment/Plan Assessment/Plan IMPRESSION: 1. Respiratory failure. 2. Bilateral pneumonia, resolved- now with edema 3. Hypoxemia. 4. Profound respiratory acidosis. 5. Acute respiratory failure, now mostly compensated. 6. Chronic renal failure. 7. Severe protein-calorie malnutrition. 8. Hyponatremia of unclear etiology. 9. Mild leukocytosis, possible sepsis. 10. Anemia. 11. Thrombocytosis. RECOMMENDATIONS: 1. Supportive care. 2. keep negative 3. lasix daily and monitor 4. Antibiotics and monitor cultures 5. po with caution- defer to primary as to alternative nutrition 6. monitor for change and consider cardiac evaluation 7. subcutaneous heparin. 8. noted venous ultrasound. 9. Follow up x-ray. for change and clearing 10. Follow and monitor po medications/laboratory data/nursing notes reviewed in detail note reviewed and edited care discussed with RN and RT Critical Care - Subjective ROS Limited/Unobtainable: Yes EKG Rhythm: Sinus Rhythm I&O: Intake and Output 11/03/17 11/04/17 19:00 07:00 Intake Total 55 ml 1320 ml Output Total 600 ml 600 ml Balance -545 ml 720 ml Intake Oral 1220 ml IV Total 55 ml 100 ml Output Urine Total 600 ml 600 ml Critical Care - Objective ET-Tube: 7.5 ET Position: 24 Last 24 Hour Vital Signs Date Time Temp Pulse Resp B/P (MAP) Pulse Ox O2 Delivery O2 Flow Rate FiO2 11/04/17 15:29 107 20 96 Nasal Cannula 5.0 40 11/04/17 15:28 107 20 92 Nasal Cannula 5.0 40 11/04/17 13:26 104 11/04/17 12:00 97.7 109 21 162/74 97 Nasal Cannula 2.0 11/04/17 12:00 162/74 11/04/17 10:51 104 20 96 Venturi Mask 12.0 50 11/04/17 10:51 106 20 97 Venturi Mask 12.0 50 11/04/17 10:07 97.9 109 22 177/72 95 Venturi Mask 12.0 11/04/17 08:26 177/72 11/04/17 08:25 177/72 11/04/17 08:00 97.9 109 11/04/17 08:00 105 11/04/17 07:13 101 20 97 Venturi Mask 12.0 50 11/04/17 07:10 103 20 96 Venturi Mask 12.0 50 11/04/17 07:10 96 Venturi Mask 12.0 50 11/04/17 07:10 Venturi Mask 12.0 50 11/04/17 04:37 186/79 11/04/17 04:00 97.8 110 30 186/79 95 Venturi Mask 12.0 50 11/04/17 03:43 104 20 95 Venturi Mask 12.0 50 11/04/17 03:39 113 11/04/17 03:28 102 20 93 Venturi Mask 12.0 50 11/04/17 00:00 98.3 116 30 150/73 96 Venturi Mask 12.0 50 11/03/17 23:47 110 20 94 Venturi Mask 12.0 50 11/03/17 23:47 116 20 96 Venturi Mask 12.0 50 11/03/17 23:45 117 11/03/17 22:24 145/73 11/03/17 20:00 110 11/03/17 20:00 97.4 87 34 149/70 93 Venturi Mask 12.0 50 11/03/17 19:27 115 20 94 Venturi Mask 12.0 50 11/03/17 19:24 92 Nasal Cannula 4.0 36 11/03/17 19:24 Nasal Cannula 4.0 36 11/03/17 19:23 115 23 92 Venturi Mask 12.0 50 11/03/17 17:03 168/73 11/03/17 16:27 183/93 Labs: Labs Test 11/02/17 05:00 11/02/17 09:39 11/03/17 06:05 11/04/17 04:30 White Blood Count 18.8 K/UL (4.8-10.8) 19.3 K/UL (4.8-10.8) 18.5 K/UL (4.8-10.8) Red Blood Count 3.45 M/UL (4.20-5.40) 3.65 M/UL (4.20-5.40) 3.47 M/UL (4.20-5.40) Hemoglobin 10.2 G/DL (12.0-16.0) 11.0 G/DL (12.0-16.0) 10.3 G/DL (12.0-16.0) Hematocrit 31.0 % (37.0-47.0) 32.7 % (37.0-47.0) 31.3 % (37.0-47.0) Mean Corpuscular Volume 90 FL (80-99) 90 FL (80-99) 90 FL (80-99) Mean Corpuscular Hemoglobin 29.4 PG (27.0-31.0) 30.1 PG (27.0-31.0) 29.8 PG (27.0-31.0) Mean Corpuscular Hemoglobin Concent 32.8 G/DL (32.0-36.0) 33.6 G/DL (32.0-36.0) 33.1 G/DL (32.0-36.0) Red Cell Distribution Width 14.1 % (11.6-14.8) 14.2 % (11.6-14.8) 14.5 % (11.6-14.8) Platelet Count 334 K/UL (150-450) 361 K/UL (150-450) 288 K/UL (150-450) Mean Platelet Volume 6.1 FL (6.5-10.1) 6.0 FL (6.5-10.1) 5.6 FL (6.5-10.1) Neutrophils (%) (Auto) % (45.0-75.0) % (45.0-75.0) % (45.0-75.0) Lymphocytes (%) (Auto) % (20.0-45.0) % (20.0-45.0) % (20.0-45.0) Monocytes (%) (Auto) % (1.0-10.0) % (1.0-10.0) % (1.0-10.0) Eosinophils (%) (Auto) % (0.0-3.0) % (0.0-3.0) % (0.0-3.0) Basophils (%) (Auto) % (0.0-2.0) % (0.0-2.0) % (0.0-2.0) Differential Total Cells Counted 100 100 100 Neutrophils % (Manual) 89 % (45-75) 90 % (45-75) 93 % (45-75) Lymphocytes % (Manual) 5 % (20-45) 4 % (20-45) 4 % (20-45) Monocytes % (Manual) 5 % (1-10) 6 % (1-10) 2 % (1-10) Eosinophils % (Manual) 0 % (0-3) 0 % (0-3) 0 % (0-3) Basophils % (Manual) 1 % (0-2) 0 % (0-2) 0 % (0-2) Band Neutrophils 0 % (0-8) 0 % (0-8) 1 % (0-8) Platelet Estimate Adequate Adequate Adequate Platelet Morphology Normal Normal Normal Hypochromasia 1+ 1+ Anisocytosis 1+ 1+ Sodium Level 141 MMOL/L (136-145) 140 MMOL/L (136-145) 143 MMOL/L (136-145) Potassium Level 4.2 MMOL/L (3.5-5.1) 4.2 MMOL/L (3.5-5.1) 4.5 MMOL/L (3.5-5.1) Chloride Level 104 MMOL/L (98-107) 105 MMOL/L (98-107) 107 MMOL/L (98-107) Carbon Dioxide Level 25 MMOL/L (21-32) 27 MMOL/L (21-32) 30 MMOL/L (21-32) Anion Gap 12 mmol/L (5-15) 8 mmol/L (5-15) 6 mmol/L (5-15) Blood Urea Nitrogen 34 mg/dL (7-18) 29 mg/dL (7-18) 29 mg/dL (7-18) Creatinine 1.7 MG/DL (0.55-1.30) 1.6 MG/DL (0.55-1.30) 1.5 MG/DL (0.55-1.30) Estimat Glomerular Filtration Rate mL/min (>60) mL/min (>60) mL/min (>60) Glucose Level 184 MG/DL (74-106) 255 MG/DL (74-106) 294 MG/DL (74-106) Calcium Level 9.3 MG/DL (8.5-10.1) 9.8 MG/DL (8.5-10.1) 9.5 MG/DL (8.5-10.1) Phosphorus Level 3.3 MG/DL (2.5-4.9) Magnesium Level 2.0 MG/DL (1.8-2.4) Total Bilirubin 0.7 MG/DL (0.2-1.0) 1.0 MG/DL (0.2-1.0) 1.2 MG/DL (0.2-1.0) Aspartate Amino Transf (AST/SGOT) 28 U/L (15-37) 20 U/L (15-37) 17 U/L (15-37) Alanine Aminotransferase (ALT/SGPT) 55 U/L (12-78) 37 U/L (12-78) 31 U/L (12-78) Alkaline Phosphatase 110 U/L (46-116) 109 U/L (46-116) 97 U/L (46-116) Pro-B-Type Natriuretic Peptide 14958 pg/mL (0-125) 01738 pg/mL (0-125) Total Protein 7.3 G/DL (6.4-8.2) 7.9 G/DL (6.4-8.2) 7.2 G/DL (6.4-8.2) Albumin 2.1 G/DL (3.4-5.0) 2.3 G/DL (3.4-5.0) 2.2 G/DL (3.4-5.0) Globulin 5.2 g/dL 5.6 g/dL 5.0 g/dL Albumin/Globulin Ratio 0.4 (1.0-2.7) 0.4 (1.0-2.7) 0.4 (1.0-2.7) Arterial Blood pH 7.373 (7.350-7.450) Arterial Blood Partial Pressure CO2 44.9 mmHg (35.0-45.0) Arterial Blood Partial Pressure O2 82.3 mmHg (75.0-100.0) Arterial Blood HCO3 25.5 mmol/L (22.0-26.0) Arterial Blood Oxygen Saturation 94.6 % (92.0-98.0) Arterial Blood Base Excess 0.1 Nishant Test Positive Direct Bilirubin 0.5 MG/DL (0.0-0.3) Vancomycin Level Trough 6.3 ug/mL (5.0-12.0) Objective: more alert HEENT: Negative. alert on oxygen NECK: Supple. No jugular venous distention. LUNGS: coarse. reduced air entry. basilar crackles with minimal change CARDIAC: Normal S1 and S2. Regular rate and rhythm. Somewhat distant without clear murmurs, rubs, or gallops. ABDOMEN: Soft, nontender, nondistended. no HSM EXTREMITIES: No cyanosis or clubbing. NEUROLOGIC: back to baseline lOC SKIN: Noted and reviewed. Accucheck: 128 LOGAN PENN Nov 04, 2017 16:06
[2017-11-04 20:00] VITALS: BP 175/81
[2017-11-04] MEDS: Atorvastatin 20mg tab ORAL SCH (21:59)
[2017-11-05] VITALS (7 sets, daily range): BP systolic 149–210; BP diastolic 60–124
[2017-11-05] MEDS: Albuterol/Ipratropium 3ml neb HHN SCH ×5 (03:28→19:53)
[2017-11-05 04:49] LABS: HEMATOCRIT 31.8 % (37.0-47.0); HEMOGLOBIN 10.9 G/DL (12.0-16.0); MEAN CORPUSCULAR VOLUME 90 FL (80-99); PLATELET COUNT 271 K/UL (150-450); RED BLOOD COUNT 3.54 M/UL (4.20-5.40); RED CELL DISTRIBUTION WIDTH 14.6 % (11.6-14.8); WHITE BLOOD COUNT 18.1 K/UL (4.8-10.8)
[2017-11-05 04:57] LABS: ANION GAP 6 mmol/L (5-15); BLOOD UREA NITROGEN 29 mg/dL (7-18); CALCIUM 9.6 MG/DL (8.5-10.1); CARBON DIOXIDE 32 MMOL/L (21-32); CHLORIDE 107 MMOL/L (98-107); CREATININE 1.6 MG/DL (0.55-1.30); POTASSIUM 3.8 MMOL/L (3.5-5.1); SODIUM 145 MMOL/L (136-145)
[2017-11-05] MEDS: Pantoprazole Inj IVP SCH (08:29)
[2017-11-05] MEDS: Losartan 50mg tab ORAL SCH ×2 (08:30→20:06)
[2017-11-05] MEDS: Heparin 5000 units/ml inj SUBQ SCH ×2 (08:32→20:08)
--- NOTE | 2017-11-05 08:36 | Critical Care Progress Note ---
Assessment/Plan Assessment/Plan IMPRESSION: 1. Respiratory failure. 2. Bilateral pneumonia, resolved- now with edema 3. Hypoxemia. 4. Profound respiratory acidosis. 5. Acute respiratory failure, now mostly compensated. 6. Chronic renal failure. 7. Severe protein-calorie malnutrition. 8. Hyponatremia of unclear etiology. 9. Mild leukocytosis, possible sepsis. 10. Anemia. 11. Thrombocytosis. RECOMMENDATIONS: 1. Supportive care as outlined 2. keep negative 3. lasix daily and monitor 4. Antibiotics and monitor cultures 5. po with caution- defer to primary as to alternative nutrition 6. monitor for change and consider cardiac evaluation 7. subcutaneous heparin. 8. noted venous ultrasound. 9. Follow up x-ray. for change and clearing 10. Follow and monitor po medications/laboratory data/nursing notes reviewed in detail note reviewed and edited care discussed with RN and RT Critical Care - Subjective Interval Events: care noted and reviewed ROS Limited/Unobtainable: Yes Condition: critical EKG Rhythm: Sinus Rhythm I&O: Intake and Output 11/04/17 11/05/17 19:00 07:00 Intake Total 473 ml Output Total 400 ml Balance 73 ml Intake Oral 473 ml Output Urine Total 400 ml # Bowel Movements 1 2 Critical Care - Objective ET-Tube: 7.5 ET Position: 24 Last 24 Hour Vital Signs Date Time Temp Pulse Resp B/P (MAP) Pulse Ox O2 Delivery O2 Flow Rate FiO2 11/05/17 08:30 184/78 11/05/17 07:55 185/74 11/05/17 06:46 85 18 96 Nasal Cannula 4.0 36 11/05/17 06:35 82 18 92 Nasal Cannula 4.0 36 11/05/17 06:35 Nasal Cannula 4.0 36 11/05/17 06:35 92 Nasal Cannula 4.0 36 11/05/17 04:00 97.0 95 24 149/60 96 Nasal Cannula 3.0 11/05/17 03:46 112 11/05/17 03:35 107 20 95 Nasal Cannula 5.0 40 11/05/17 03:28 93 20 91 Nasal Cannula 4.0 36 11/05/17 00:00 97.9 107 24 160/72 98 Nasal Cannula 3.0 11/05/17 00:00 97 11/04/17 23:29 109 20 95 Nasal Cannula 5.0 40 11/04/17 23:14 106 20 94 Nasal Cannula 5.0 40 11/04/17 22:00 175/81 11/04/17 21:59 175/81 11/04/17 20:52 Venturi Mask 12.0 50 11/04/17 20:52 96 Venturi Mask 12.0 50 11/04/17 20:00 98.1 111 24 175/81 91 Nasal Cannula 4.0 11/04/17 20:00 104 11/04/17 19:59 108 20 95 Nasal Cannula 5.0 40 11/04/17 19:53 101 20 92 Nasal Cannula 5.0 40 11/04/17 17:01 177/84 11/04/17 16:00 98 11/04/17 16:00 98.4 106 20 177/84 96 Nasal Cannula 2.0 11/04/17 15:29 107 20 96 Nasal Cannula 5.0 40 11/04/17 15:28 107 20 92 Nasal Cannula 5.0 40 11/04/17 13:26 104 11/04/17 12:00 97.7 109 21 162/74 97 Nasal Cannula 2.0 11/04/17 12:00 162/74 11/04/17 10:51 104 20 96 Venturi Mask 12.0 50 11/04/17 10:51 106 20 97 Venturi Mask 12.0 50 11/04/17 10:07 97.9 109 22 177/72 95 Venturi Mask 12.0 Labs: Labs Test 11/02/17 09:39 11/03/17 06:05 11/04/17 04:30 11/05/17 04:25 Arterial Blood pH 7.373 (7.350-7.450) Arterial Blood Partial Pressure CO2 44.9 mmHg (35.0-45.0) Arterial Blood Partial Pressure O2 82.3 mmHg (75.0-100.0) Arterial Blood HCO3 25.5 mmol/L (22.0-26.0) Arterial Blood Oxygen Saturation 94.6 % (92.0-98.0) Arterial Blood Base Excess 0.1 Nishant Test Positive White Blood Count 19.3 K/UL (4.8-10.8) 18.5 K/UL (4.8-10.8) 18.1 K/UL (4.8-10.8) Red Blood Count 3.65 M/UL (4.20-5.40) 3.47 M/UL (4.20-5.40) 3.54 M/UL (4.20-5.40) Hemoglobin 11.0 G/DL (12.0-16.0) 10.3 G/DL (12.0-16.0) 10.9 G/DL (12.0-16.0) Hematocrit 32.7 % (37.0-47.0) 31.3 % (37.0-47.0) 31.8 % (37.0-47.0) Mean Corpuscular Volume 90 FL (80-99) 90 FL (80-99) 90 FL (80-99) Mean Corpuscular Hemoglobin 30.1 PG (27.0-31.0) 29.8 PG (27.0-31.0) 30.9 PG (27.0-31.0) Mean Corpuscular Hemoglobin Concent 33.6 G/DL (32.0-36.0) 33.1 G/DL (32.0-36.0) 34.3 G/DL (32.0-36.0) Red Cell Distribution Width 14.2 % (11.6-14.8) 14.5 % (11.6-14.8) 14.6 % (11.6-14.8) Platelet Count 361 K/UL (150-450) 288 K/UL (150-450) 271 K/UL (150-450) Mean Platelet Volume 6.0 FL (6.5-10.1) 5.6 FL (6.5-10.1) 6.1 FL (6.5-10.1) Neutrophils (%) (Auto) % (45.0-75.0) % (45.0-75.0) % (45.0-75.0) Lymphocytes (%) (Auto) % (20.0-45.0) % (20.0-45.0) % (20.0-45.0) Monocytes (%) (Auto) % (1.0-10.0) % (1.0-10.0) % (1.0-10.0) Eosinophils (%) (Auto) % (0.0-3.0) % (0.0-3.0) % (0.0-3.0) Basophils (%) (Auto) % (0.0-2.0) % (0.0-2.0) % (0.0-2.0) Differential Total Cells Counted 100 100 Neutrophils % (Manual) 90 % (45-75) 93 % (45-75) Lymphocytes % (Manual) 4 % (20-45) 4 % (20-45) Monocytes % (Manual) 6 % (1-10) 2 % (1-10) Eosinophils % (Manual) 0 % (0-3) 0 % (0-3) Basophils % (Manual) 0 % (0-2) 0 % (0-2) Band Neutrophils 0 % (0-8) 1 % (0-8) Platelet Estimate Adequate Adequate Platelet Morphology Normal Normal Hypochromasia 1+ Anisocytosis 1+ Sodium Level 140 MMOL/L (136-145) 143 MMOL/L (136-145) 145 MMOL/L (136-145) Potassium Level 4.2 MMOL/L (3.5-5.1) 4.5 MMOL/L (3.5-5.1) 3.8 MMOL/L (3.5-5.1) Chloride Level 105 MMOL/L (98-107) 107 MMOL/L (98-107) 107 MMOL/L (98-107) Carbon Dioxide Level 27 MMOL/L (21-32) 30 MMOL/L (21-32) 32 MMOL/L (21-32) Anion Gap 8 mmol/L (5-15) 6 mmol/L (5-15) 6 mmol/L (5-15) Blood Urea Nitrogen 29 mg/dL (7-18) 29 mg/dL (7-18) 29 mg/dL (7-18) Creatinine 1.6 MG/DL (0.55-1.30) 1.5 MG/DL (0.55-1.30) 1.6 MG/DL (0.55-1.30) Estimat Glomerular Filtration Rate mL/min (>60) mL/min (>60) mL/min (>60) Glucose Level 255 MG/DL (74-106) 294 MG/DL (74-106) 352 MG/DL (74-106) Calcium Level 9.8 MG/DL (8.5-10.1) 9.5 MG/DL (8.5-10.1) 9.6 MG/DL (8.5-10.1) Total Bilirubin 1.0 MG/DL (0.2-1.0) 1.2 MG/DL (0.2-1.0) Aspartate Amino Transf (AST/SGOT) 20 U/L (15-37) 17 U/L (15-37) Alanine Aminotransferase (ALT/SGPT) 37 U/L (12-78) 31 U/L (12-78) Alkaline Phosphatase 109 U/L (46-116) 97 U/L (46-116) Pro-B-Type Natriuretic Peptide 23782 pg/mL (0-125) Total Protein 7.9 G/DL (6.4-8.2) 7.2 G/DL (6.4-8.2) Albumin 2.3 G/DL (3.4-5.0) 2.2 G/DL (3.4-5.0) Globulin 5.6 g/dL 5.0 g/dL Albumin/Globulin Ratio 0.4 (1.0-2.7) 0.4 (1.0-2.7) Direct Bilirubin 0.5 MG/DL (0.0-0.3) Vancomycin Level Trough 6.3 ug/mL (5.0-12.0) Objective: more alert HEENT: Negative. alert on oxygen NECK: Supple. No jugular venous distention. LUNGS: coarse. reduced air entry. basilar crackles with minimal change CARDIAC: Normal S1 and S2. Regular rate and rhythm. Somewhat distant without clear murmurs, rubs, or gallops. ABDOMEN: Soft, nontender, nondistended. no HSM EXTREMITIES: No cyanosis or clubbing. NEUROLOGIC: back to baseline lOC SKIN: Noted and reviewed. Accucheck: 128 LOGAN PENN Nov 05, 2017 08:36
[2017-11-05] MEDS: Lactulose 20gm/30ml UDC ORAL SCH ×3 (09:00→18:00)
[2017-11-05] MEDS: Docusate 100mg cap ORAL SCH ×2 (09:00→18:00)
--- NOTE | 2017-11-05 11:35 | Neurology Progress Note ---
Interim History Interim History ROS Limited/Unobtainable: Yes Objective Physical Exam Last Vital Signs Date Time Temp Pulse Resp B/P (MAP) Pulse Ox O2 Delivery O2 Flow Rate FiO2 11/05/17 08:53 108 24 Nasal Cannula 4.0 36 11/05/17 08:30 184/78 11/05/17 08:00 97.8 11/05/17 06:46 96 Laboratory Tests Test 11/05/17 04:25 White Blood Count 18.1 K/UL (4.8-10.8) H Red Blood Count 3.54 M/UL (4.20-5.40) L Hemoglobin 10.9 G/DL (12.0-16.0) L Hematocrit 31.8 % (37.0-47.0) L Mean Corpuscular Volume 90 FL (80-99) Mean Corpuscular Hemoglobin 30.9 PG (27.0-31.0) Mean Corpuscular Hemoglobin Concent 34.3 G/DL (32.0-36.0) Red Cell Distribution Width 14.6 % (11.6-14.8) Platelet Count 271 K/UL (150-450) Mean Platelet Volume 6.1 FL (6.5-10.1) L Neutrophils (%) (Auto) % (45.0-75.0) Lymphocytes (%) (Auto) % (20.0-45.0) Monocytes (%) (Auto) % (1.0-10.0) Eosinophils (%) (Auto) % (0.0-3.0) Basophils (%) (Auto) % (0.0-2.0) Differential Total Cells Counted 100 Neutrophils % (Manual) 90 % (45-75) H Lymphocytes % (Manual) 7 % (20-45) L Monocytes % (Manual) 3 % (1-10) Eosinophils % (Manual) 0 % (0-3) Basophils % (Manual) 0 % (0-2) Band Neutrophils 0 % (0-8) Platelet Estimate Adequate Platelet Morphology Normal Sodium Level 145 MMOL/L (136-145) Potassium Level 3.8 MMOL/L (3.5-5.1) Chloride Level 107 MMOL/L (98-107) Carbon Dioxide Level 32 MMOL/L (21-32) Anion Gap 6 mmol/L (5-15) Blood Urea Nitrogen 29 mg/dL (7-18) H Creatinine 1.6 MG/DL (0.55-1.30) H Estimat Glomerular Filtration Rate mL/min (>60) Glucose Level 352 MG/DL (74-106) H Calcium Level 9.6 MG/DL (8.5-10.1) Impression/Recommendations Status: progressing Recommendations # [id number] MANUEL JIANG Nov 05, 2017 11:35
--- NOTE | 2017-11-05 11:53 | GI Progress Note ---
Assessment/Plan Problems: (1) Abnormal LFTs ICD Codes: R94.5 - Abnormal results of liver function studies SNOMED: 241871403 (2) Respiratory failure ICD Codes: J96.90 - Respiratory failure, unspecified, unspecified whether with hypoxia or hypercapnia SNOMED: 849163651 Qualifiers: Qualified Codes: J96.01 - Acute respiratory failure with hypoxia; J96.02 - Acute respiratory failure with hypercapnia (3) Dyspnea ICD Codes: R06.00 - Dyspnea, unspecified SNOMED: 708639362 Qualifiers: Qualified Codes: R06.00 - Dyspnea, unspecified (4) Anemia ICD Codes: D64.9 - Anemia, unspecified SNOMED: 644860423 Status: stable Status Narrative Discussed with Dr. Brooks. Assessment/Plan abnormal LFTs most likely due to hepatic congestion >> now normal defer GI procedures ADA diet OB stool r/o GI bleed monitor H&H, prn transfusions ppi electrolyte correction pulmonary support fu labs, LFTs Subjective Subjective hungry Objective Last 24 Hour Vital Signs Date Time Temp Pulse Resp B/P (MAP) Pulse Ox O2 Delivery O2 Flow Rate FiO2 11/05/17 11:42 89 20 96 Nasal Cannula 3.0 32 11/05/17 11:32 86 20 92 Nasal Cannula 3.0 32 11/05/17 08:53 108 24 Nasal Cannula 4.0 36 11/05/17 08:30 184/78 11/05/17 08:00 97.8 108 21 182/78 Nasal Cannula 4.0 11/05/17 08:00 104 11/05/17 07:55 185/74 11/05/17 06:46 85 18 96 Nasal Cannula 4.0 36 11/05/17 06:35 82 18 92 Nasal Cannula 4.0 36 11/05/17 06:35 Nasal Cannula 4.0 36 11/05/17 06:35 92 Nasal Cannula 4.0 36 11/05/17 04:00 97.0 95 24 149/60 96 Nasal Cannula 3.0 11/05/17 03:46 112 11/05/17 03:35 107 20 95 Nasal Cannula 5.0 40 11/05/17 03:28 93 20 91 Nasal Cannula 4.0 36 11/05/17 00:00 97.9 107 24 160/72 98 Nasal Cannula 3.0 11/05/17 00:00 97 11/04/17 23:29 109 20 95 Nasal Cannula 5.0 40 11/04/17 23:14 106 20 94 Nasal Cannula 5.0 40 11/04/17 22:00 175/81 11/04/17 21:59 175/81 11/04/17 20:52 Venturi Mask 12.0 50 11/04/17 20:52 96 Venturi Mask 12.0 50 11/04/17 20:00 98.1 111 24 175/81 91 Nasal Cannula 4.0 11/04/17 20:00 104 11/04/17 19:59 108 20 95 Nasal Cannula 5.0 40 11/04/17 19:53 101 20 92 Nasal Cannula 5.0 40 11/04/17 17:01 177/84 11/04/17 16:00 98 11/04/17 16:00 98.4 106 20 177/84 96 Nasal Cannula 2.0 11/04/17 15:29 107 20 96 Nasal Cannula 5.0 40 11/04/17 15:28 107 20 92 Nasal Cannula 5.0 40 11/04/17 13:26 104 11/04/17 12:00 97.7 109 21 162/74 97 Nasal Cannula 2.0 11/04/17 12:00 162/74 Intake and Output 11/04/17 11/05/17 19:00 07:00 Intake Total 473 ml Output Total 400 ml Balance 73 ml Intake Oral 473 ml Output Urine Total 400 ml # Bowel Movements 1 2 Laboratory Tests Test 11/05/17 04:25 White Blood Count 18.1 K/UL (4.8-10.8) H Red Blood Count 3.54 M/UL (4.20-5.40) L Hemoglobin 10.9 G/DL (12.0-16.0) L Hematocrit 31.8 % (37.0-47.0) L Mean Corpuscular Volume 90 FL (80-99) Mean Corpuscular Hemoglobin 30.9 PG (27.0-31.0) Mean Corpuscular Hemoglobin Concent 34.3 G/DL (32.0-36.0) Red Cell Distribution Width 14.6 % (11.6-14.8) Platelet Count 271 K/UL (150-450) Mean Platelet Volume 6.1 FL (6.5-10.1) L Neutrophils (%) (Auto) % (45.0-75.0) Lymphocytes (%) (Auto) % (20.0-45.0) Monocytes (%) (Auto) % (1.0-10.0) Eosinophils (%) (Auto) % (0.0-3.0) Basophils (%) (Auto) % (0.0-2.0) Differential Total Cells Counted 100 Neutrophils % (Manual) 90 % (45-75) H Lymphocytes % (Manual) 7 % (20-45) L Monocytes % (Manual) 3 % (1-10) Eosinophils % (Manual) 0 % (0-3) Basophils % (Manual) 0 % (0-2) Band Neutrophils 0 % (0-8) Platelet Estimate Adequate Platelet Morphology Normal Sodium Level 145 MMOL/L (136-145) Potassium Level 3.8 MMOL/L (3.5-5.1) Chloride Level 107 MMOL/L (98-107) Carbon Dioxide Level 32 MMOL/L (21-32) Anion Gap 6 mmol/L (5-15) Blood Urea Nitrogen 29 mg/dL (7-18) H Creatinine 1.6 MG/DL (0.55-1.30) H Estimat Glomerular Filtration Rate mL/min (>60) Glucose Level 352 MG/DL (74-106) H Calcium Level 9.6 MG/DL (8.5-10.1) Height (Feet): 5 Height (Inches): 2.00 Weight (Pounds): 199 General Appearance: alert Cardiovascular: normal rate Respiratory/Chest: other - NC Abdominal Exam: soft Yolanda Donald N.P. Nov 05, 2017 11:53
--- NOTE | 2017-11-05 14:01 | Cardiology Report ---
APPROVED REPORT EKG Measurement Heart [id number] MD [id number] Sinus tachycardia Possible Left atrial enlargement Abnormal ECG
--- NOTE | 2017-11-05 14:17 | General Progress Note ---
Assessment/Plan Assessment/Plan Resp Faiure -extubated - on tele. Anemia stable. Avoiding Narcotics + Anxiolytics. DW pt. Needs SNF for PT. Check Swallow mechanism. Subjective Allergies: Coded Allergies: No Known Allergies (Verified , 09/30/07) Subjective No new c/o. On tele floor. Objective Last 24 Hour Vital Signs Date Time Temp Pulse Resp B/P (MAP) Pulse Ox O2 Delivery O2 Flow Rate FiO2 11/05/17 12:17 188/72 11/05/17 11:42 89 20 96 Nasal Cannula 3.0 32 11/05/17 11:32 86 20 92 Nasal Cannula 3.0 32 11/05/17 08:53 108 24 Nasal Cannula 4.0 36 11/05/17 08:30 184/78 11/05/17 08:00 97.8 108 21 182/78 Nasal Cannula 4.0 11/05/17 08:00 104 11/05/17 07:55 185/74 11/05/17 06:46 85 18 96 Nasal Cannula 4.0 36 11/05/17 06:35 82 18 92 Nasal Cannula 4.0 36 11/05/17 06:35 Nasal Cannula 4.0 36 11/05/17 06:35 92 Nasal Cannula 4.0 36 11/05/17 04:00 97.0 95 24 149/60 96 Nasal Cannula 3.0 11/05/17 03:46 112 11/05/17 03:35 107 20 95 Nasal Cannula 5.0 40 11/05/17 03:28 93 20 91 Nasal Cannula 4.0 36 11/05/17 00:00 97.9 107 24 160/72 98 Nasal Cannula 3.0 11/05/17 00:00 97 11/04/17 23:29 109 20 95 Nasal Cannula 5.0 40 11/04/17 23:14 106 20 94 Nasal Cannula 5.0 40 11/04/17 22:00 175/81 11/04/17 21:59 175/81 11/04/17 20:52 Venturi Mask 12.0 50 11/04/17 20:52 96 Venturi Mask 12.0 50 11/04/17 20:00 98.1 111 24 175/81 91 Nasal Cannula 4.0 11/04/17 20:00 104 11/04/17 19:59 108 20 95 Nasal Cannula 5.0 40 11/04/17 19:53 101 20 92 Nasal Cannula 5.0 40 11/04/17 17:01 177/84 11/04/17 16:00 98 11/04/17 16:00 98.4 106 20 177/84 96 Nasal Cannula 2.0 11/04/17 15:29 107 20 96 Nasal Cannula 5.0 40 11/04/17 15:28 107 20 92 Nasal Cannula 5.0 40 Intake and Output 11/04/17 11/05/17 19:00 07:00 Intake Total 473 ml Output Total 400 ml Balance 73 ml Intake Oral 473 ml Output Urine Total 400 ml # Bowel Movements 1 2 Laboratory Tests 11/05/17 04:25: White Blood Count 18.1H, Red Blood Count 3.54L, Hemoglobin 10.9L, Hematocrit 31.8L, Mean Corpuscular Volume 90, Mean Corpuscular Hemoglobin 30.9, Mean Corpuscular Hemoglobin Concent 34.3, Red Cell Distribution Width 14.6, Platelet Count 271, Mean Platelet Volume 6.1L, Neutrophils (%) (Auto) , Lymphocytes (%) ( Auto) , Monocytes (%) (Auto) , Eosinophils (%) (Auto) , Basophils (%) (Auto) , Differential Total Cells Counted 100, Neutrophils % (Manual) 90H, Lymphocytes % (Manual) 7L, Monocytes % (Manual) 3, Eosinophils % (Manual) 0, Basophils % ( Manual) 0, Band Neutrophils 0, Platelet Estimate Adequate, Platelet Morphology Normal, Sodium Level 145, Potassium Level 3.8, Chloride Level 107, Carbon Dioxide Level 32, Anion Gap 6, Blood Urea Nitrogen 29H, Creatinine 1.6H, Estimat Glomerular Filtration Rate , Glucose Level 352H, Calcium Level 9.6 Height (Feet): 5 Height (Inches): 2.00 Weight (Pounds): 199 Objective CV RR Lungs B wheezes Abd SNT. BS + E No CHARMAINEE ANU DURAND Nov 05, 2017 14:17
--- NOTE | 2017-11-05 18:45 | Consultation ---
DATE OF CONSULTATION: 11/05/2017 NEUROLOGICAL CONSULTATION REQUESTING PHYSICIAN: Mic Maynard M.D. HISTORY OF PRESENT ILLNESS: The patient is a 77-year-old female with multiple medical issues, presenting with weakness and swelling in right upper extremity, profound generalized weakness, inability to ambulate. The patient was admitted to this facility with acute respiratory failure, felt as a result of pneumonia. Chest x-ray revealed bilateral infiltrates. ABG obtained revealing acute respiratory acidosis and hypoxia. Initial laboratory work included CBC study with WBC 11,800 and sodium 130, BUN of 38 and creatinine 2.8. Following admission, the patient was intubated. She was treated for underlying profound respiratory acidosis and hypoxemia. Intravenous fluids and antibiotics was started, now with bilateral pneumonia start to resolve, still presenting with edema. The patient currently extubated, able to sit in the chair, still maintaining respiratory support. Subcutaneous heparin. Her latest laboratory studies included a CBC study with WBC of 18.1. Coagulation panel, INR 1.2. Urinalysis unremarkable and her chemistry panel with BUN of 29, creatinine 1.6 and blood sugar 252. Elevated BNP at 17,286. Venous duplex of both lower extremities was negative. PAST MEDICAL HISTORY: The patient has a history of breast CA status post lumpectomy, diabetes, hypertension, history of chronic anemia, and renal insufficiency. MEDICATIONS: Current treatment list included IV fluids and antibiotics, but also Lipitor, Colace, Catapres, albuterol, Lasix, subcutaneous heparin, lactulose, Cozaar, and Protonix. ALLERGIES: None reported. SOCIAL HISTORY: There is no evidence of alcohol or drug abuse. FAMILY HISTORY: Noncontributory. REVIEW OF SYMPTOMS: The patient indicates she has shortness of breath, but overall she is feeling "better and stronger". She indicated "I have no brain problems". There is no chest pain. No palpitations. She has a on respiratory difficulties, but no abdominal pain or discomfort. No urine or bowel incontinence. She is unaware of previous strokes, TIA, or seizures. PHYSICAL EXAMINATION: GENERAL: A well-developed ill-appearing female, on oxygen mask. VITAL SIGNS: Now stable, blood pressure 184/78, heart rate of 108, and afebrile. HEENT: Head, normocephalic. No evidence of trauma. Eyes, ears, nose, and throat are clear. NECK: Supple. No meningeal signs. MUSCULOSKELETAL: There is significant swelling of puffiness in the right upper extremity. Peripheral pulses 1+ and symmetric. No rash. MENTAL STATUS: The patient is alert, smiling, able to follow simple commands, appears coherent. No aphagia. CRANIAL NERVE II: Pupils both responding to light and accommodation. Extraocular movement intact. No nystagmus. CRANIAL NERVE V: Normal corneal responses. CRANIAL NERVE VII: No facial asymmetry. CRANIAL NERVE VIII: Normal hearing. CRANIAL NERVES IX THROUGH XII: Tongue is in midline. Symmetric palate elevation. MOTOR EXAMINATION: Normal muscle tone. Able to lift arms with some mild pronation in the right arm. Able to move both lower extremities, weakness, 4/5 both hip flexors. Deep tendon reflexes depressed bilaterally. Plantar response is flexor. SENSORY EXAMINATION: Withdrawing to pin stimulation all limbs. Gait not tested. IMPRESSION: 1. Failure to thrive. 2. Right arm weakness probably due to significant swelling, rule out deep vein thrombosis. 3. Malnutrition. 4. Hypertension. 5. Respiratory failure. 6. Renal insufficiency. 7. Diabetes type 2. 8. Congestive heart failure. RECOMMENDATION: Get a venous duplex of right upper extremity. PT/OT. Nutritional supplement. Continue with Ecotrin 81 mg. Avoid sedating or benzodiazepine medications. Thank you for allowing me to see this interesting patient in neurological consultation. Latrell Ortega M.D. DR: SELVIN JOB#: [id number] CC:
[2017-11-05] MEDS: Atorvastatin 20mg tab ORAL SCH (20:07)
[2017-11-06] VITALS (7 sets, daily range): BP systolic 154–208; BP diastolic 62–113
[2017-11-06] MEDS: Albuterol/Ipratropium 3ml neb HHN SCH ×6 (00:21→20:29)
[2017-11-06 04:55] LABS: HEMATOCRIT 32.9 % (37.0-47.0); MEAN CORPUSCULAR VOLUME 89 FL (80-99); PLATELET COUNT 272 K/UL (150-450); RED BLOOD COUNT 3.69 M/UL (4.20-5.40); RED CELL DISTRIBUTION WIDTH 14.3 % (11.6-14.8); WHITE BLOOD COUNT 17.6 K/UL (4.8-10.8)
[2017-11-06 05:14] LABS: ALANINE AMINOTRANSFERASE 25 U/L (12-78); ALBUMIN 2.1 G/DL (3.4-5.0); ALBUMIN/GLOBULIN RATIO 0.4 (1.0-2.7); ALKALINE PHOSPHATASE 97 U/L (46-116); ANION GAP 6 mmol/L (5-15); ASPARTATE AMINO TRANSFERASE 16 U/L (15-37); BLOOD UREA NITROGEN 31 mg/dL (7-18); CALCIUM 9.7 MG/DL (8.5-10.1); CARBON DIOXIDE 34 MMOL/L (21-32); CHLORIDE 106 MMOL/L (98-107); CREATININE 1.4 MG/DL (0.55-1.30); POTASSIUM 3.4 MMOL/L (3.5-5.1); SODIUM 145 MMOL/L (136-145)
[2017-11-06] MEDS ORDERED: Vancomycin 1gm/D5W 275ml IVPB SCH ×2 (06:15)
[2017-11-06] MEDS ORDERED: Vancomycin 1gm/D5W 275ml IVPB ONE ×2 (06:15)
[2017-11-06] MEDS ORDERED: Vancomycin 1gm inj IVPB ONE (06:20)
[2017-11-06] MEDS ORDERED: Potassium Chloride 10 MEQ in NS 110 ML IV ONE ×2 (07:45→11:30)
[2017-11-06] MEDS ORDERED: Potassium Chloride 10 MEQ in NS 110 ML IVPB ONE (09:00)
[2017-11-06] MEDS: Pantoprazole Inj IVP SCH (09:15)
[2017-11-06] MEDS: Heparin 5000 units/ml inj SUBQ SCH ×2 (09:16→21:13)
[2017-11-06] MEDS: Losartan 50mg tab ORAL SCH ×2 (09:16→21:12)
[2017-11-06] MEDS: Lactulose 20gm/30ml UDC ORAL SCH ×3 (09:26→18:22)
[2017-11-06] MEDS: Docusate 100mg cap ORAL SCH (09:26)
--- NOTE | 2017-11-06 09:56 | Critical Care Progress Note ---
Assessment/Plan Assessment/Plan IMPRESSION: 1. Respiratory failure. 2. Bilateral pneumonia, resolved- now with edema 3. Hypoxemia. 4. Profound respiratory acidosis. 5. Acute respiratory failure, now mostly compensated. 6. Chronic renal failure. 7. Severe protein-calorie malnutrition. 8. Hyponatremia of unclear etiology. 9. Mild leukocytosis, possible sepsis. 10. Anemia. 11. Thrombocytosis. RECOMMENDATIONS: 1. Supportive care as outlined 2. keep negative 3. lasix daily and monitor 4. Antibiotics and monitor cultures 5. po with caution- defer to primary as to alternative nutrition 6. monitor for change and consider cardiac evaluation 7. subcutaneous heparin. 8. noted venous ultrasound. 9. Follow up x-ray. for change and clearing 10. Follow and monitor po medications/laboratory data/nursing notes reviewed in detail note reviewed and edited care discussed with RN and RT Critical Care - Subjective Interval Events: CARE NOTED NO DISTRESS ROS Limited/Unobtainable: Yes EKG Rhythm: Sinus Rhythm I&O: Intake and Output 11/05/17 11/06/17 19:00 07:00 Intake Total 250 ml Output Total 200 ml Balance 50 ml Intake Oral 150 ml IV Total 100 ml Output Urine Total 200 ml Critical Care - Objective ET-Tube: 7.5 ET Position: 24 Last 24 Hour Vital Signs Date Time Temp Pulse Resp B/P (MAP) Pulse Ox O2 Delivery O2 Flow Rate FiO2 11/06/17 09:16 109 208/113 11/06/17 09:16 109 208/113 11/06/17 09:16 208/113 11/06/17 08:59 97.0 109 20 208/113 98 Nasal Cannula 3.0 11/06/17 07:17 97 18 98 Nasal Cannula 3.0 32 11/06/17 07:17 32 11/06/17 07:07 Nasal Cannula 3.0 32 11/06/17 07:07 97 18 97 Nasal Cannula 3.0 32 11/06/17 07:07 97 Nasal Cannula 3.0 32 11/06/17 04:10 99 18 100 Nasal Cannula 4.0 36 11/06/17 04:00 97.7 105 20 160/91 99 Nasal Cannula 4.0 11/06/17 04:00 36 11/06/17 04:00 105 11/06/17 04:00 103 18 93 Nasal Cannula 4.0 36 11/06/17 00:28 107 18 95 Nasal Cannula 3.0 32 11/06/17 00:10 97 18 94 Nasal Cannula 4.0 36 11/06/17 00:10 36 11/06/17 00:00 98.3 102 24 160/78 97 Nasal Cannula 4.0 11/06/17 00:00 104 11/05/17 20:12 112 18 96 Nasal Cannula 3.0 32 11/05/17 20:06 210/124 11/05/17 20:00 110 11/05/17 20:00 97.9 98 19 210/124 98 Nasal Cannula 4.0 11/05/17 19:51 102 16 95 Nasal Cannula 3.0 32 11/05/17 19:51 95 Nasal Cannula 3.0 32 11/05/17 19:51 Nasal Cannula 3.0 32 11/05/17 18:16 109 184/82 11/05/17 16:00 98.1 109 19 184/82 94 Nasal Cannula 4.0 11/05/17 16:00 110 11/05/17 14:39 98 22 95 Nasal Cannula 3.0 32 11/05/17 14:27 99 20 92 Nasal Cannula 3.0 32 11/05/17 14:21 98.7 111 19 188/78 96 Nasal Cannula 4.0 11/05/17 12:17 188/72 11/05/17 12:00 98.7 111 19 188/78 96 Nasal Cannula 96.0 11/05/17 12:00 108 11/05/17 11:42 89 20 96 Nasal Cannula 3.0 32 11/05/17 11:32 86 20 92 Nasal Cannula 3.0 32 Labs: Laboratory Tests Test 11/06/17 04:30 White Blood Count 17.6 K/UL (4.8-10.8) H Red Blood Count 3.69 M/UL (4.20-5.40) L Hemoglobin 11.0 G/DL (12.0-16.0) L Hematocrit 32.9 % (37.0-47.0) L Mean Corpuscular Volume 89 FL (80-99) Mean Corpuscular Hemoglobin 29.8 PG (27.0-31.0) Mean Corpuscular Hemoglobin Concent 33.4 G/DL (32.0-36.0) Red Cell Distribution Width 14.3 % (11.6-14.8) Platelet Count 272 K/UL (150-450) Mean Platelet Volume 6.3 FL (6.5-10.1) L Neutrophils (%) (Auto) % (45.0-75.0) Lymphocytes (%) (Auto) % (20.0-45.0) Monocytes (%) (Auto) % (1.0-10.0) Eosinophils (%) (Auto) % (0.0-3.0) Basophils (%) (Auto) % (0.0-2.0) Differential Total Cells Counted 100 Neutrophils % (Manual) 90 % (45-75) H Lymphocytes % (Manual) 6 % (20-45) L Monocytes % (Manual) 4 % (1-10) Eosinophils % (Manual) 0 % (0-3) Basophils % (Manual) 0 % (0-2) Band Neutrophils 0 % (0-8) Platelet Estimate Adequate Platelet Morphology Normal Anisocytosis 1+ Sodium Level 145 MMOL/L (136-145) Potassium Level 3.4 MMOL/L (3.5-5.1) L Chloride Level 106 MMOL/L (98-107) Carbon Dioxide Level 34 MMOL/L (21-32) H Anion Gap 6 mmol/L (5-15) Blood Urea Nitrogen 31 mg/dL (7-18) H Creatinine 1.4 MG/DL (0.55-1.30) H Estimat Glomerular Filtration Rate mL/min (>60) Glucose Level 363 MG/DL (74-106) H Calcium Level 9.7 MG/DL (8.5-10.1) Total Bilirubin 1.0 MG/DL (0.2-1.0) Aspartate Amino Transf (AST/SGOT) 16 U/L (15-37) Alanine Aminotransferase (ALT/SGPT) 25 U/L (12-78) Alkaline Phosphatase 97 U/L (46-116) Total Protein 7.2 G/DL (6.4-8.2) Albumin 2.1 G/DL (3.4-5.0) L Globulin 5.1 g/dL Albumin/Globulin Ratio 0.4 (1.0-2.7) L Random Vancomycin Level 8.3 ug/mL Objective: more alert HEENT: Negative. alert on oxygen NECK: Supple. No jugular venous distention. LUNGS: coarse. reduced air entry. basilar crackles with minimal change CARDIAC: Normal S1 and S2. Regular rate and rhythm. Somewhat distant without clear murmurs, rubs, or gallops. ABDOMEN: Soft, nontender, nondistended. no HSM EXTREMITIES: No cyanosis or clubbing. NEUROLOGIC: back to baseline lOC SKIN: Noted and reviewed. Accucheck: 128 LOGAN PENN Nov 06, 2017 09:55
--- NOTE | 2017-11-06 10:30 | General Progress Note ---
Assessment/Plan Assessment/Plan Resp Faliure -extubated - on tele. Anemia stable. Avoiding Narcotics + Anxiolytics. DW pt. Needs SNF for PT. Check Swallow mechanism. OK. R/O arm DVT. Correct uncontrolled BG. Subjective Allergies: Coded Allergies: No Known Allergies (Verified , 09/30/07) Subjective No new c/o. On tele floor. Objective Last 24 Hour Vital Signs Date Time Temp Pulse Resp B/P (MAP) Pulse Ox O2 Delivery O2 Flow Rate FiO2 11/06/17 09:16 109 208/113 11/06/17 09:16 109 208/113 11/06/17 09:16 208/113 11/06/17 08:59 97.0 109 20 208/113 98 Nasal Cannula 3.0 11/06/17 07:38 102 11/06/17 07:17 97 18 98 Nasal Cannula 3.0 32 11/06/17 07:17 32 11/06/17 07:07 Nasal Cannula 3.0 32 11/06/17 07:07 97 18 97 Nasal Cannula 3.0 32 11/06/17 07:07 97 Nasal Cannula 3.0 32 11/06/17 04:10 99 18 100 Nasal Cannula 4.0 36 11/06/17 04:00 97.7 105 20 160/91 99 Nasal Cannula 4.0 11/06/17 04:00 36 11/06/17 04:00 105 11/06/17 04:00 103 18 93 Nasal Cannula 4.0 36 11/06/17 00:28 107 18 95 Nasal Cannula 3.0 32 11/06/17 00:10 97 18 94 Nasal Cannula 4.0 36 11/06/17 00:10 36 11/06/17 00:00 98.3 102 24 160/78 97 Nasal Cannula 4.0 11/06/17 00:00 104 11/05/17 20:12 112 18 96 Nasal Cannula 3.0 32 11/05/17 20:06 210/124 11/05/17 20:00 110 11/05/17 20:00 97.9 98 19 210/124 98 Nasal Cannula 4.0 11/05/17 19:51 102 16 95 Nasal Cannula 3.0 32 11/05/17 19:51 95 Nasal Cannula 3.0 32 11/05/17 19:51 Nasal Cannula 3.0 32 11/05/17 18:16 109 184/82 2/5/18 16:00 98.1 109 19 184/82 94 Nasal Cannula 4.0 11/05/17 16:00 110 11/05/17 14:39 98 22 95 Nasal Cannula 3.0 32 11/05/17 14:27 99 20 92 Nasal Cannula 3.0 32 11/05/17 14:21 98.7 111 [id number] 96 Nasal Cannula 4.0 11/05/17 12:17 188/72 11/05/17 12:00 98.7 111 96 Nasal Cannula 96.0 11/05/17 12:00 108 11/05/17 11:42 89 20 96 Nasal Cannula 3.0 32 11/05/17 11:32 86 20 92 Nasal Cannula 3.0 32 Intake and Output 11/05/17 11/06/17 19:00 07:00 Intake Total 250 ml Output Total 200 ml Balance 50 ml Intake Oral 150 ml IV Total 100 ml Output Urine Total 200 ml Laboratory Tests 11/06/17 04:30: White Blood Count 17.6H, Red Blood Count 3.69L, Hemoglobin 11.0L, Hematocrit 32.9L, Mean Corpuscular Volume 89, Mean Corpuscular Hemoglobin 29.8, Mean Corpuscular Hemoglobin Concent 33.4, Red Cell Distribution Width 14.3, Platelet Count 272, Mean Platelet Volume 6.3L, Neutrophils (%) (Auto) , Lymphocytes (%) ( Auto) , Monocytes (%) (Auto) , Eosinophils (%) (Auto) , Basophils (%) (Auto) , Differential Total Cells Counted 100, Neutrophils % (Manual) 90H, Lymphocytes % (Manual) 6L, Monocytes % (Manual) 4, Eosinophils % (Manual) 0, Basophils % ( Manual) 0, Band Neutrophils 0, Platelet Estimate Adequate, Platelet Morphology Normal, Anisocytosis 1+, Sodium Level 145, Potassium Level 3.4L, Chloride Level 106, Carbon Dioxide Level 34H, Anion Gap 6, Blood Urea Nitrogen 31H, Creatinine 1.4H, Estimat Glomerular Filtration Rate , Glucose Level 363H, Calcium Level 9.7 , Total Bilirubin 1.0, Aspartate Amino Transf (AST/SGOT) 16, Alanine Aminotransferase (ALT/SGPT) 25, Alkaline Phosphatase 97, Total Protein 7.2, Albumin 2.1L, Globulin 5.1, Albumin/Globulin Ratio 0.4L, Random Vancomycin Level 8.3 Height (Feet): 5 Height (Inches): 2.00 Weight (Pounds): 201 Objective CV RR Lungs B wheezes Abd SNT. BS + E No CCE ANU DURAND Nov 06, 2017 10:30
--- NOTE | 2017-11-06 10:54 | GI Progress Note ---
Assessment/Plan Problems: (1) Abnormal LFTs ICD Codes: R94.5 - Abnormal results of liver function studies SNOMED: 264982761 (2) Respiratory failure ICD Codes: J96.90 - Respiratory failure, unspecified, unspecified whether with hypoxia or hypercapnia SNOMED: 085269373 Qualifiers: Qualified Codes: J96.01 - Acute respiratory failure with hypoxia; J96.02 - Acute respiratory failure with hypercapnia (3) Dyspnea ICD Codes: R06.00 - Dyspnea, unspecified SNOMED: 501439196 Qualifiers: Qualified Codes: R06.00 - Dyspnea, unspecified (4) Anemia ICD Codes: D64.9 - Anemia, unspecified SNOMED: 115259083 Status: stable, progressing Status Narrative Discussed with Dr. Brooks. Assessment/Plan abnormal LFTs most likely due to hepatic congestion >> now normal defer GI procedures ADA diet OB stool r/o GI bleed monitor H&H, prn transfusions ppi electrolyte correction pulmonary support fu labs, LFTs Subjective Gastrointestinal/Abdominal: Reports: no symptoms Subjective hungry Objective Last 24 Hour Vital Signs Date Time Temp Pulse Resp B/P (MAP) Pulse Ox O2 Delivery O2 Flow Rate FiO2 11/06/17 09:16 109 208/113 11/06/17 09:16 109 208/113 11/06/17 09:16 208/113 11/06/17 08:59 97.0 109 20 208/113 98 Nasal Cannula 3.0 11/06/17 07:38 102 11/06/17 07:17 97 18 98 Nasal Cannula 3.0 32 11/06/17 07:17 32 11/06/17 07:07 Nasal Cannula 3.0 32 11/06/17 07:07 97 18 97 Nasal Cannula 3.0 32 11/06/17 07:07 97 Nasal Cannula 3.0 32 11/06/17 04:10 99 18 100 Nasal Cannula 4.0 36 11/06/17 04:00 97.7 105 20 160/91 99 Nasal Cannula 4.0 11/06/17 04:00 36 11/06/17 04:00 105 11/06/17 04:00 103 18 93 Nasal Cannula 4.0 36 11/06/17 00:28 107 18 95 Nasal Cannula 3.0 32 11/06/17 00:10 97 18 94 Nasal Cannula 4.0 36 11/06/17 00:10 36 11/06/17 00:00 98.3 102 24 160/78 97 Nasal Cannula 4.0 11/06/17 00:00 104 11/05/17 20:12 112 18 96 Nasal Cannula 3.0 32 11/05/17 20:06 210/124 11/05/17 20:00 110 11/05/17 20:00 97.9 98 19 210/124 98 Nasal Cannula 4.0 11/05/17 19:51 102 16 95 Nasal Cannula 3.0 32 11/05/17 19:51 95 Nasal Cannula 3.0 32 11/05/17 19:51 Nasal Cannula 3.0 32 11/05/17 18:16 109 184/82 11/05/17 16:00 98.1 109 19 184/82 94 Nasal Cannula 4.0 11/05/17 16:00 110 11/05/17 14:39 98 22 95 Nasal Cannula 3.0 32 11/05/17 14:27 99 20 92 Nasal Cannula 3.0 32 11/05/17 14:21 98.7 111 19 188/78 96 Nasal Cannula 4.0 11/05/17 12:17 188/72 11/05/17 12:00 98.7 111 19 188/78 96 Nasal Cannula 96.0 11/05/17 12:00 108 11/05/17 11:42 89 20 96 Nasal Cannula 3.0 32 11/05/17 11:32 86 20 92 Nasal Cannula 3.0 32 Intake and Output 11/05/17 11/06/17 19:00 07:00 Intake Total 250 ml Output Total 200 ml Balance 50 ml Intake Oral 150 ml IV Total 100 ml Output Urine Total 200 ml Laboratory Tests Test 11/06/17 04:30 White Blood Count 17.6 K/UL (4.8-10.8) H Red Blood Count 3.69 M/UL (4.20-5.40) L Hemoglobin 11.0 G/DL (12.0-16.0) L Hematocrit 32.9 % (37.0-47.0) L Mean Corpuscular Volume 89 FL (80-99) Mean Corpuscular Hemoglobin 29.8 PG (27.0-31.0) Mean Corpuscular Hemoglobin Concent 33.4 G/DL (32.0-36.0) Red Cell Distribution Width 14.3 % (11.6-14.8) Platelet Count 272 K/UL (150-450) Mean Platelet Volume 6.3 FL (6.5-10.1) L Neutrophils (%) (Auto) % (45.0-75.0) Lymphocytes (%) (Auto) % (20.0-45.0) Monocytes (%) (Auto) % (1.0-10.0) Eosinophils (%) (Auto) % (0.0-3.0) Basophils (%) (Auto) % (0.0-2.0) Differential Total Cells Counted 100 Neutrophils % (Manual) 90 % (45-75) H Lymphocytes % (Manual) 6 % (20-45) L Monocytes % (Manual) 4 % (1-10) Eosinophils % (Manual) 0 % (0-3) Basophils % (Manual) 0 % (0-2) Band Neutrophils 0 % (0-8) Platelet Estimate Adequate Platelet Morphology Normal Anisocytosis 1+ Sodium Level 145 MMOL/L (136-145) Potassium Level 3.4 MMOL/L (3.5-5.1) L Chloride Level 106 MMOL/L (98-107) Carbon Dioxide Level 34 MMOL/L (21-32) H Anion Gap 6 mmol/L (5-15) Blood Urea Nitrogen 31 mg/dL (7-18) H Creatinine 1.4 MG/DL (0.55-1.30) H Estimat Glomerular Filtration Rate mL/min (>60) Glucose Level 363 MG/DL (74-106) H Calcium Level 9.7 MG/DL (8.5-10.1) Total Bilirubin 1.0 MG/DL (0.2-1.0) Aspartate Amino Transf (AST/SGOT) 16 U/L (15-37) Alanine Aminotransferase (ALT/SGPT) 25 U/L (12-78) Alkaline Phosphatase 97 U/L (46-116) Total Protein 7.2 G/DL (6.4-8.2) Albumin 2.1 G/DL (3.4-5.0) L Globulin 5.1 g/dL Albumin/Globulin Ratio 0.4 (1.0-2.7) L Random Vancomycin Level 8.3 ug/mL Height (Feet): 5 Height (Inches): 2.00 Weight (Pounds): 201 General Appearance: WD/WN, no apparent distress, alert Cardiovascular: normal rate Respiratory/Chest: normal breath sounds, no respiratory distress, other - NC Abdominal Exam: normal bowel sounds, non tender, soft Extremities: normal range of motion, non-tender Yolanda Donald N.P. Nov 06, 2017 10:54
[2017-11-06] MEDS ORDERED: Levemir Flexpen SUBQ SCH (12:00)
[2017-11-06] MEDS ORDERED: Potassium Chloride 10 MEQ in NS 110 ML IVPB SCH (15:00)
[2017-11-06] MEDS ORDERED: Miralax 17gm pkt ORAL PRN (17:00)
[2017-11-06] MEDS ORDERED: Docusate 100mg cap ORAL SCH (18:00)
[2017-11-06] MEDS: Atorvastatin 20mg tab ORAL SCH (21:11)
[2017-11-07] VITALS: BP 157/70
[2017-11-07] MEDS: Albuterol/Ipratropium 3ml neb HHN SCH ×7 (00:08→23:13)
[2017-11-07 04:00] VITALS: BP 167/71
[2017-11-07] MEDS: Vancomycin 1 GM in D5W 275 ML IVPB SCH (07:02)
[2017-11-07 07:53] LABS: HEMOGLOBIN 11.2 G/DL (12.0-16.0); MEAN CORPUSCULAR VOLUME 91 FL (80-99); PLATELET COUNT 235 K/UL (150-450); RED BLOOD COUNT 3.73 M/UL (4.20-5.40); RED CELL DISTRIBUTION WIDTH 14.8 % (11.6-14.8); WHITE BLOOD COUNT 17.3 K/UL (4.8-10.8)
[2017-11-07 08:00] VITALS: BP 163/71
[2017-11-07 08:40] LABS: ANION GAP 6 mmol/L (5-15); BLOOD UREA NITROGEN 33 mg/dL (7-18); CALCIUM 9.3 MG/DL (8.5-10.1); CARBON DIOXIDE 33 MMOL/L (21-32); CHLORIDE 103 MMOL/L (98-107); CREATININE 1.8 MG/DL (0.55-1.30); POTASSIUM 3.8 MMOL/L (3.5-5.1); SODIUM 142 MMOL/L (136-145)
--- NOTE | 2017-11-07 08:54 | Critical Care Progress Note ---
Assessment/Plan Assessment/Plan IMPRESSION: 1. Respiratory failure. 2. Bilateral pneumonia, resolved- now with edema 3. Hypoxemia. 4. Profound respiratory acidosis. 5. Acute respiratory failure, now mostly compensated. 6. Chronic renal failure. 7. Severe protein-calorie malnutrition. 8. Hyponatremia of unclear etiology. 9. Mild leukocytosis, possible sepsis. 10. Anemia. 11. Thrombocytosis. RECOMMENDATIONS: 1. Supportive care as outlined 2. keep negative 3. lasix daily and monitor 4. follow up imaging 5. po with caution- defer to primary 6. monitor for change and consider cardiac evaluation 7. subcutaneous heparin. 8. continue same and consider dc to snf medications/laboratory data/nursing notes reviewed in detail note reviewed and edited care discussed with RN and RT Critical Care - Subjective Interval Events: care noted and discussed on oxygen ROS Limited/Unobtainable: Yes EKG Rhythm: Sinus Rhythm I&O: Intake and Output 11/06/17 11/07/17 19:00 07:00 Intake Total 495.000 ml 300 ml Output Total 400 ml Balance 495.000 ml -100 ml Intake Oral 300 ml IV Total 495.000 ml Output Urine Total 400 ml # Bowel Movements 1 Critical Care - Objective ET-Tube: 7.5 ET Position: 24 Last 24 Hour Vital Signs Date Time Temp Pulse Resp B/P (MAP) Pulse Ox O2 Delivery O2 Flow Rate FiO2 11/07/17 08:04 96 18 96 Nasal Cannula 3.0 32 11/07/17 08:03 32 11/07/17 07:58 Nasal Cannula 3.0 32 11/07/17 07:56 93 Nasal Cannula 3.0 32 11/07/17 07:55 89 18 92 Nasal Cannula 4.0 11/07/17 04:00 97.9 92 23 167/71 96 Nasal Cannula 3.0 11/07/17 04:00 100 11/07/17 03:58 92 18 98 Nasal Cannula 3.0 32 11/07/17 03:48 94 18 96 Nasal Cannula 3.0 11/07/17 03:48 32 11/07/17 00:00 97.0 96 21 157/70 97 Nasal Cannula 3.0 11/07/17 00:00 95 11/06/17 23:59 93 17 98 Nasal Cannula 3.0 32 11/06/17 23:50 95 20 96 Nasal Cannula 3.0 11/06/17 23:50 32 11/06/17 21:12 162/78 11/06/17 20:12 97 Nasal Cannula 3.0 32 11/06/17 20:12 Nasal Cannula 3.0 32 11/06/17 20:00 97.9 96 21 162/78 97 Nasal Cannula 3.0 11/06/17 20:00 90 11/06/17 19:59 96 20 98 Nasal Cannula 3.0 32 11/06/17 19:50 32 11/06/17 19:50 93 18 97 Nasal Cannula 3.0 11/06/17 18:23 90 154/62 11/06/17 16:30 97.9 94 18 162/78 97 Nasal Cannula 1.0 11/06/17 16:00 93 11/06/17 15:24 90 20 97 Nasal Cannula 2.0 28 11/06/17 15:24 28 11/06/17 15:18 90 20 96 Nasal Cannula 2.0 28 11/06/17 12:18 154/62 11/06/17 12:04 97.7 94 20 205/102 94 Nasal Cannula 1.0 11/06/17 11:41 93 11/06/17 11:11 95 Nasal Cannula 1.0 11/06/17 11:03 92 18 98 Nasal Cannula 3.0 32 11/06/17 11:03 32 11/06/17 10:52 89 20 98 Nasal Cannula 3.0 32 11/06/17 09:16 109 208/113 11/06/17 09:16 109 208/113 11/06/17 09:16 208/113 11/06/17 08:59 97.0 109 20 208/113 98 Nasal Cannula 3.0 Labs: Laboratory Tests Test 11/07/17 05:50 White Blood Count 17.3 K/UL (4.8-10.8) H Red Blood Count 3.73 M/UL (4.20-5.40) L Hemoglobin 11.2 G/DL (12.0-16.0) L Hematocrit 34.0 % (37.0-47.0) L Mean Corpuscular Volume 91 FL (80-99) Mean Corpuscular Hemoglobin 30.1 PG (27.0-31.0) Mean Corpuscular Hemoglobin Concent 33.0 G/DL (32.0-36.0) Red Cell Distribution Width 14.8 % (11.6-14.8) Platelet Count 235 K/UL (150-450) Mean Platelet Volume 6.4 FL (6.5-10.1) L Neutrophils (%) (Auto) % (45.0-75.0) Lymphocytes (%) (Auto) % (20.0-45.0) Monocytes (%) (Auto) % (1.0-10.0) Eosinophils (%) (Auto) % (0.0-3.0) Basophils (%) (Auto) % (0.0-2.0) Neutrophils % (Manual) Pending Lymphocytes % (Manual) Pending Platelet Estimate Pending Platelet Morphology Pending Sodium Level 142 MMOL/L (136-145) Potassium Level 3.8 MMOL/L (3.5-5.1) Chloride Level 103 MMOL/L (98-107) Carbon Dioxide Level 33 MMOL/L (21-32) H Anion Gap 6 mmol/L (5-15) Blood Urea Nitrogen 33 mg/dL (7-18) H Creatinine 1.8 MG/DL (0.55-1.30) H Estimat Glomerular Filtration Rate mL/min (>60) Glucose Level 500 MG/DL (74-106) #H Calcium Level 9.3 MG/DL (8.5-10.1) Magnesium Level 1.7 MG/DL (1.8-2.4) L Vancomycin Level Trough Pending Objective: more alert HEENT: Negative. alert on oxygen NECK: Supple. No jugular venous distention. LUNGS: coarse. reduced air entry. basilar crackles with minimal change CARDIAC: Normal S1 and S2. Regular rate and rhythm. Somewhat distant without clear murmurs, rubs, or gallops. ABDOMEN: Soft, nontender, nondistended. no HSM EXTREMITIES: No cyanosis or clubbing. NEUROLOGIC: back to baseline lOC SKIN: Noted and reviewed. Accucheck: 456 LOGAN PENN Nov 07, 2017 08:54
[2017-11-07] MEDS: Docusate 100mg cap ORAL SCH ×2 (08:55→16:42)
[2017-11-07] MEDS: Lactulose 20gm/30ml UDC ORAL SCH ×3 (08:56→16:42)
[2017-11-07] MEDS: Pantoprazole Inj IVP SCH (08:56)
[2017-11-07] MEDS: Losartan 50mg tab ORAL SCH ×2 (08:56→21:07)
[2017-11-07] MEDS: Heparin 5000 units/ml inj SUBQ SCH ×2 (08:58→21:09)
--- NOTE | 2017-11-07 11:31 | GI Progress Note ---
Assessment/Plan Problems: (1) Abnormal LFTs ICD Codes: R94.5 - Abnormal results of liver function studies SNOMED: 293119247 (2) Respiratory failure ICD Codes: J96.90 - Respiratory failure, unspecified, unspecified whether with hypoxia or hypercapnia SNOMED: 577887298 Qualifiers: Qualified Codes: J96.01 - Acute respiratory failure with hypoxia; J96.02 - Acute respiratory failure with hypercapnia (3) Dyspnea ICD Codes: R06.00 - Dyspnea, unspecified SNOMED: 655931307 Qualifiers: Qualified Codes: R06.00 - Dyspnea, unspecified (4) Anemia ICD Codes: D64.9 - Anemia, unspecified SNOMED: 412265958 Status: progressing Status Narrative Discussed with Dr. Brooks. Assessment/Plan abnormal LFTs most likely due to hepatic congestion >> now normal defer GI procedures ADA diet OB stool r/o GI bleed monitor H&H, prn transfusions ppi electrolyte correction pulmonary support fu labs, LFTs outpatient GI procedures Subjective Subjective hungry Objective Last 24 Hour Vital Signs Date Time Temp Pulse Resp B/P (MAP) Pulse Ox O2 Delivery O2 Flow Rate FiO2 11/07/17 11:28 80 18 100 Nasal Cannula 2.0 28 11/07/17 11:28 28 11/07/17 11:21 73 18 100 Nasal Cannula 3.0 32 11/07/17 08:56 163/69 11/07/17 08:55 92 163/69 11/07/17 08:54 92 163/69 11/07/17 08:04 96 18 96 Nasal Cannula 3.0 32 11/07/17 08:03 32 11/07/17 08:00 98.2 92 21 163/71 93 Nasal Cannula 3.0 11/07/17 08:00 90 11/07/17 07:58 Nasal Cannula 3.0 32 11/07/17 07:56 93 Nasal Cannula 3.0 32 11/07/17 07:55 89 18 92 Nasal Cannula 4.0 11/07/17 04:00 97.9 92 23 167/71 96 Nasal Cannula 3.0 11/07/17 04:00 100 11/07/17 03:58 92 18 98 Nasal Cannula 3.0 32 11/07/17 03:48 94 18 96 Nasal Cannula 3.0 11/07/17 03:48 32 11/07/17 00:00 97.0 96 21 157/70 97 Nasal Cannula 3.0 11/07/17 00:00 95 11/06/17 23:59 93 17 98 Nasal Cannula 3.0 32 11/06/17 23:50 95 20 96 Nasal Cannula 3.0 11/06/17 23:50 32 11/06/17 21:12 162/78 11/06/17 20:12 97 Nasal Cannula 3.0 32 11/06/17 20:12 Nasal Cannula 3.0 32 11/06/17 20:00 97.9 96 21 162/78 97 Nasal Cannula 3.0 11/06/17 20:00 90 11/06/17 19:59 96 20 98 Nasal Cannula 3.0 32 11/06/17 19:50 32 11/06/17 19:50 93 18 97 Nasal Cannula 3.0 11/06/17 18:23 90 154/62 11/06/17 16:30 97.9 94 18 162/78 97 Nasal Cannula 1.0 11/06/17 16:00 93 11/06/17 15:24 90 20 97 Nasal Cannula 2.0 28 11/06/17 15:24 28 11/06/17 15:18 90 20 96 Nasal Cannula 2.0 28 11/06/17 12:18 154/62 11/06/17 12:04 97.7 94 20 205/102 94 Nasal Cannula 1.0 11/06/17 11:41 93 Intake and Output 11/06/17 11/07/17 19:00 07:00 Intake Total 495.000 ml 300 ml Output Total 400 ml Balance 495.000 ml -100 ml Intake Oral 300 ml IV Total 495.000 ml Output Urine Total 400 ml # Bowel Movements 1 Laboratory Tests Test 11/07/17 05:50 White Blood Count 17.3 K/UL (4.8-10.8) H Red Blood Count 3.73 M/UL (4.20-5.40) L Hemoglobin 11.2 G/DL (12.0-16.0) L Hematocrit 34.0 % (37.0-47.0) L Mean Corpuscular Volume 91 FL (80-99) Mean Corpuscular Hemoglobin 30.1 PG (27.0-31.0) Mean Corpuscular Hemoglobin Concent 33.0 G/DL (32.0-36.0) Red Cell Distribution Width 14.8 % (11.6-14.8) Platelet Count 235 K/UL (150-450) Mean Platelet Volume 6.4 FL (6.5-10.1) L Neutrophils (%) (Auto) % (45.0-75.0) Lymphocytes (%) (Auto) % (20.0-45.0) Monocytes (%) (Auto) % (1.0-10.0) Eosinophils (%) (Auto) % (0.0-3.0) Basophils (%) (Auto) % (0.0-2.0) Differential Total Cells Counted 100 Neutrophils % (Manual) 86 % (45-75) H Lymphocytes % (Manual) 9 % (20-45) L Monocytes % (Manual) 3 % (1-10) Eosinophils % (Manual) 2 % (0-3) Basophils % (Manual) 0 % (0-2) Band Neutrophils 0 % (0-8) Platelet Estimate Adequate Platelet Morphology Normal Sodium Level 142 MMOL/L (136-145) Potassium Level 3.8 MMOL/L (3.5-5.1) Chloride Level 103 MMOL/L (98-107) Carbon Dioxide Level 33 MMOL/L (21-32) H Anion Gap 6 mmol/L (5-15) Blood Urea Nitrogen 33 mg/dL (7-18) H Creatinine 1.8 MG/DL (0.55-1.30) H Estimat Glomerular Filtration Rate mL/min (>60) Glucose Level 500 MG/DL (74-106) #H Calcium Level 9.3 MG/DL (8.5-10.1) Magnesium Level 1.7 MG/DL (1.8-2.4) L Vancomycin Level Trough 14.7 ug/mL (5.0-12.0) H Height (Feet): 5 Height (Inches): 2.00 Weight (Pounds): 201 General Appearance: WD/WN, no apparent distress, alert Cardiovascular: normal rate Respiratory/Chest: normal breath sounds, no respiratory distress Abdominal Exam: normal bowel sounds, non tender, soft Extremities: normal range of motion, non-tender Yolanda Donald N.P. Nov 07, 2017 11:30
[2017-11-07 12:00] VITALS: BP 164/75
[2017-11-07] MEDS ORDERED: Levemir Flexpen SUBQ SCH (12:00)
--- NOTE | 2017-11-07 12:02 | General Progress Note ---
Assessment/Plan Assessment/Plan Resp Faliure -extubated - on tele. Anemia stable. m/p Lab error 1 value off! Avoiding Narcotics + Anxiolytics. DW pt. Needs SNF for PT. Check Swallow mechanism. OK. R/O arm DVT. Correct uncontrolled BG! Increase insulins both short + long acting. Uncontrolled HTN increase Rx. Subjective Allergies: Coded Allergies: No Known Allergies (Verified , 09/30/07) Subjective No new c/o. On tele floor. Objective Last 24 Hour Vital Signs Date Time Temp Pulse Resp B/P (MAP) Pulse Ox O2 Delivery O2 Flow Rate FiO2 11/07/17 11:28 80 18 100 Nasal Cannula 2.0 28 11/07/17 11:28 28 11/07/17 11:21 73 18 100 Nasal Cannula 3.0 32 11/07/17 08:56 163/69 11/07/17 08:55 92 163/69 11/07/17 08:54 92 163/69 11/07/17 08:04 96 18 96 Nasal Cannula 3.0 32 11/07/17 08:03 32 11/07/17 08:00 98.2 92 21 163/71 93 Nasal Cannula 3.0 11/07/17 08:00 90 11/07/17 07:58 Nasal Cannula 3.0 32 11/07/17 07:56 93 Nasal Cannula 3.0 32 11/07/17 07:55 89 18 92 Nasal Cannula 4.0 11/07/17 04:00 97.9 92 23 167/71 96 Nasal Cannula 3.0 11/07/17 04:00 100 11/07/17 03:58 92 18 98 Nasal Cannula 3.0 32 11/07/17 03:48 94 18 96 Nasal Cannula 3.0 11/07/17 03:48 32 11/07/17 00:00 97.0 96 21 157/70 97 Nasal Cannula 3.0 11/07/17 00:00 95 11/06/17 23:59 93 17 98 Nasal Cannula 3.0 32 11/06/17 23:50 95 20 96 Nasal Cannula 3.0 11/06/17 23:50 32 11/06/17 21:12 162/78 11/06/17 20:12 97 Nasal Cannula 3.0 32 11/06/17 20:12 Nasal Cannula 3.0 32 11/06/17 20:00 97.9 96 21 162/78 97 Nasal Cannula 3.0 11/06/17 20:00 90 11/06/17 19:59 96 20 98 Nasal Cannula 3.0 32 11/06/17 19:50 32 11/06/17 19:50 93 18 97 Nasal Cannula 3.0 11/06/17 18:23 90 154/62 11/06/17 16:30 97.9 94 18 162/78 97 Nasal Cannula 1.0 11/06/17 16:00 93 11/06/17 15:24 90 20 97 Nasal Cannula 2.0 28 11/06/17 15:24 28 11/06/17 15:18 90 20 96 Nasal Cannula 2.0 28 11/06/17 12:18 154/62 11/06/17 12:04 97.7 94 20 205/102 94 Nasal Cannula 1.0 Intake and Output 11/06/17 11/07/17 19:00 07:00 Intake Total 495.000 ml 300 ml Output Total 400 ml Balance 495.000 ml -100 ml Intake Oral 300 ml IV Total 495.000 ml Output Urine Total 400 ml # Bowel Movements 1 Laboratory Tests 11/07/17 05:50: White Blood Count 17.3H, Red Blood Count 3.73L, Hemoglobin 11.2L, Hematocrit 34.0L, Mean Corpuscular Volume 91, Mean Corpuscular Hemoglobin 30.1, Mean Corpuscular Hemoglobin Concent 33.0, Red Cell Distribution Width 14.8, Platelet Count 235, Mean Platelet Volume 6.4L, Neutrophils (%) (Auto) , Lymphocytes (%) ( Auto) , Monocytes (%) (Auto) , Eosinophils (%) (Auto) , Basophils (%) (Auto) , Differential Total Cells Counted 100, Neutrophils % (Manual) 86H, Lymphocytes % (Manual) 9L, Monocytes % (Manual) 3, Eosinophils % (Manual) 2, Basophils % ( Manual) 0, Band Neutrophils 0, Platelet Estimate Adequate, Platelet Morphology Normal, Sodium Level 142, Potassium Level 3.8, Chloride Level 103, Carbon Dioxide Level 33H, Anion Gap 6, Blood Urea Nitrogen 33H, Creatinine 1.8H, Estimat Glomerular Filtration Rate , Glucose Level 500#H, Calcium Level 9.3, Magnesium Level 1.7L, Vancomycin Level Trough 14.7H Height (Feet): 5 Height (Inches): 2.00 Weight (Pounds): 201 Objective CV RR Lungs B wheezes Abd SNT. BS + E No CCE ANU DURAND Nov 07, 2017 12:02
[2017-11-07] MEDS: NovoLOG Insulin Flexpen SUBQ SCH ×3 (12:40→21:10)
--- NOTE | 2017-11-07 14:33 | Diagnostic Imaging Report ---
Indication: Shortness of breath Technique: One view of the chest Comparison: November 02, 2017 Findings: Again demonstrated are extensive bilateral diffuse interstitial and alveolar infiltrates versus edema, appearing unchanged allowing for technical differences. Left greater than right pleural effusions are again demonstrated. Findings are overall unchanged Impression: Unchanged, over 5 days, findings as above.
[2017-11-07 16:00] VITALS: BP 156/55
[2017-11-07 20:00] VITALS: BP 156/59
[2017-11-07] MEDS ORDERED: Miralax 17gm pkt ORAL SCH (21:00)
[2017-11-07] MEDS: Atorvastatin 20mg tab ORAL SCH (21:07)
[2017-11-07] MEDS: Labetalol 200mg tab ORAL SCH (21:08)
[2017-11-08] VITALS: BP 149/61
[2017-11-08 04:00] VITALS: BP 144/75
[2017-11-08] MEDS: Vancomycin 1 GM in D5W 275 ML IVPB SCH (05:53)
[2017-11-08] MEDS: NovoLOG Insulin Flexpen SUBQ SCH ×2 (05:54→11:19)
[2017-11-08] MEDS: Albuterol/Ipratropium 3ml neb HHN SCH ×3 (06:44→14:52)
[2017-11-08 07:13] LABS: BASOPHILS % (AUTO) 0.5 % (0.0-2.0); EOSINOPHILS % (AUTO) 2.6 % (0.0-3.0); HEMATOCRIT 32.2 % (37.0-47.0); HEMOGLOBIN 11.1 G/DL (12.0-16.0); LYMPHOCYTES % (AUTO) 9.2 % (20.0-45.0); MEAN CORPUSCULAR VOLUME 89 FL (80-99); MONOCYTES % (AUTO) 4.5 % (1.0-10.0); NEUTROPHILS % (AUTO) 83.2 % (45.0-75.0); PLATELET COUNT 202 K/UL (150-450); RED BLOOD COUNT 3.61 M/UL (4.20-5.40); RED CELL DISTRIBUTION WIDTH 14.6 % (11.6-14.8); WHITE BLOOD COUNT 14.1 K/UL (4.8-10.8)
[2017-11-08 07:45] VITALS: BP 144/68
[2017-11-08 08:13] LABS: ANION GAP 5 mmol/L (5-15); BLOOD UREA NITROGEN 36 mg/dL (7-18); CALCIUM 9.4 MG/DL (8.5-10.1); CARBON DIOXIDE 33 MMOL/L (21-32); CHLORIDE 105 MMOL/L (98-107); CREATININE 1.7 MG/DL (0.55-1.30); POTASSIUM 4.1 MMOL/L (3.5-5.1); SODIUM 143 MMOL/L (136-145)
--- NOTE | 2017-11-08 08:20 | Critical Care Progress Note ---
Assessment/Plan Assessment/Plan IMPRESSION: 1. Respiratory failure. 2. Bilateral pneumonia, resolved- now with edema 3. Hypoxemia. 4. Profound respiratory acidosis. 5. Acute respiratory failure, now mostly compensated. 6. Chronic renal failure. 7. Severe protein-calorie malnutrition. 8. Hyponatremia of unclear etiology. 9. Mild leukocytosis, possible sepsis. 10. Anemia. 11. Thrombocytosis. RECOMMENDATIONS: 1. Supportive care as outlined 2. keep negative and increase lasix 3. lasix daily and monitor BMP and BNP 4. follow up imaging for clearing 5. po with caution- defer to primary 6. monitor for change and consider cardiac evaluation 7. subcutaneous heparin. 8. continue same and consider dc to snf 9. on levaquin; monitor wbc medications/laboratory data/nursing notes reviewed in detail note reviewed and edited care discussed with RN and RT Critical Care - Subjective Interval Events: imaging noted still with edema on cxr ROS Limited/Unobtainable: Yes EKG Rhythm: Sinus Rhythm I&O: Intake and Output 11/07/17 11/08/17 19:00 07:00 Intake Total 475.000 ml 305.140 ml Output Total 900 ml 1200 ml Balance -425.000 ml -894.860 ml IV Total 475.000 ml 305.140 ml Output Urine Total 900 ml 1200 ml # Bowel Movements 1 4 Critical Care - Objective CXR: pulmonary edema ET-Tube: 7.5 ET Position: 24 Last 24 Hour Vital Signs Date Time Temp Pulse Resp B/P (MAP) Pulse Ox O2 Delivery O2 Flow Rate FiO2 11/08/17 06:56 70 20 100 Nasal Cannula 3.0 32 11/08/17 06:44 36 11/08/17 06:44 75 18 100 Nasal Cannula 4.0 32 11/08/17 06:44 Nasal Cannula 3.0 32 11/08/17 06:44 100 Nasal Cannula 4.0 36 11/08/17 04:12 69 11/08/17 04:00 97.0 90 20 144/75 95 Nasal Cannula 3.0 11/08/17 03:18 Nasal Cannula 11/08/17 03:17 Nasal Cannula 11/08/17 00:00 97.9 77 22 149/61 99 Nasal Cannula 3.0 11/07/17 23:51 72 11/07/17 23:25 64 20 100 Nasal Cannula 3.0 32 11/07/17 23:13 32 11/07/17 23:11 64 20 100 Nasal Cannula 3.0 32 11/07/17 21:08 75 152/59 11/07/17 21:07 152/59 11/07/17 20:00 98.2 75 20 156/59 97 Nasal Cannula 3.0 11/07/17 19:56 79 11/07/17 19:44 75 20 99 Nasal Cannula 3.0 28 11/07/17 19:33 Nasal Cannula 3.0 28 11/07/17 19:33 75 20 99 Nasal Cannula 3.0 28 11/07/17 19:33 28 11/07/17 19:32 99 Nasal Cannula 3.0 28 11/07/17 17:29 75 156/55 11/07/17 16:00 74 11/07/17 16:00 97.7 75 20 156/55 99 Nasal Cannula 3.0 11/07/17 15:46 28 11/07/17 15:46 75 18 99 Nasal Cannula 2.0 28 11/07/17 15:41 74 18 94 Nasal Cannula 2.0 28 11/07/17 12:00 77 11/07/17 12:00 98.2 76 19 164/75 98 Nasal Cannula 3.0 11/07/17 11:28 80 18 100 Nasal Cannula 2.0 28 11/07/17 11:28 28 11/07/17 11:25 73 18 100 Nasal Cannula 3.0 32 11/07/17 11:21 73 18 100 Nasal Cannula 3.0 32 11/07/17 08:56 163/69 11/07/17 08:55 92 163/69 11/07/17 08:54 92 163/69 Labs: Laboratory Tests Test 11/08/17 05:50 White Blood Count 14.1 K/UL (4.8-10.8) H Red Blood Count 3.61 M/UL (4.20-5.40) L Hemoglobin 11.1 G/DL (12.0-16.0) L Hematocrit 32.2 % (37.0-47.0) L Mean Corpuscular Volume 89 FL (80-99) Mean Corpuscular Hemoglobin 30.7 PG (27.0-31.0) Mean Corpuscular Hemoglobin Concent 34.4 G/DL (32.0-36.0) Red Cell Distribution Width 14.6 % (11.6-14.8) Platelet Count 202 K/UL (150-450) Mean Platelet Volume 6.9 FL (6.5-10.1) Neutrophils (%) (Auto) 83.2 % (45.0-75.0) H Lymphocytes (%) (Auto) 9.2 % (20.0-45.0) L Monocytes (%) (Auto) 4.5 % (1.0-10.0) Eosinophils (%) (Auto) 2.6 % (0.0-3.0) Basophils (%) (Auto) 0.5 % (0.0-2.0) Sodium Level 143 MMOL/L (136-145) Potassium Level 4.1 MMOL/L (3.5-5.1) Chloride Level 105 MMOL/L (98-107) Carbon Dioxide Level 33 MMOL/L (21-32) H Anion Gap 5 mmol/L (5-15) Blood Urea Nitrogen 36 mg/dL (7-18) H Creatinine 1.7 MG/DL (0.55-1.30) H Estimat Glomerular Filtration Rate mL/min (>60) Glucose Level 221 MG/DL (74-106) #H Calcium Level 9.4 MG/DL (8.5-10.1) Magnesium Level 2.3 MG/DL (1.8-2.4) Objective: more alert HEENT: Negative. alert on oxygen NECK: Supple. No jugular venous distention. LUNGS: coarse. reduced air entry. basilar crackles with minimal change and some rhonchi CARDIAC: Normal S1 and S2. Regular rate and rhythm. Somewhat distant without clear murmurs, rubs, or gallops. ABDOMEN: Soft, nontender, nondistended. no HSM EXTREMITIES: No cyanosis or clubbing.noted edema NEUROLOGIC: reduced lOC SKIN: Noted and reviewed. Accucheck: 237 LOGAN PENN Nov 08, 2017 08:20
[2017-11-08] MEDS: Lactulose 20gm/30ml UDC ORAL SCH ×2 (08:25→12:15)
[2017-11-08] MEDS: Pantoprazole Inj IVP SCH (08:26)
[2017-11-08] MEDS: Docusate 100mg cap ORAL SCH (08:26)
[2017-11-08] MEDS: Labetalol 200mg tab ORAL SCH (08:26)
[2017-11-08] MEDS: Losartan 50mg tab ORAL SCH (08:27)
[2017-11-08] MEDS: Heparin 5000 units/ml inj SUBQ SCH (08:29)
--- NOTE | 2017-11-08 10:11 | GI Progress Note ---
Assessment/Plan Problems: (1) Abnormal LFTs ICD Codes: R94.5 - Abnormal results of liver function studies SNOMED: 277726779 (2) Respiratory failure ICD Codes: J96.90 - Respiratory failure, unspecified, unspecified whether with hypoxia or hypercapnia SNOMED: 779658244 Qualifiers: Qualified Codes: J96.01 - Acute respiratory failure with hypoxia; J96.02 - Acute respiratory failure with hypercapnia (3) Dyspnea ICD Codes: R06.00 - Dyspnea, unspecified SNOMED: 796866007 Qualifiers: Qualified Codes: R06.00 - Dyspnea, unspecified (4) Anemia ICD Codes: D64.9 - Anemia, unspecified SNOMED: 236866095 Status: doing well, stable Status Narrative Discussed with Dr. Brooks. Assessment/Plan symptomatic treatment ADA diet OB stool r/o GI bleed monitor H&H, prn transfusions ppi electrolyte correction pulmonary support fu labs, LFTs outpatient GI procedures Subjective Subjective hungry Objective Last 24 Hour Vital Signs Date Time Temp Pulse Resp B/P (MAP) Pulse Ox O2 Delivery O2 Flow Rate FiO2 11/08/17 08:27 144/68 11/08/17 08:26 69 144/68 11/08/17 08:26 69 144/68 11/08/17 08:02 67 11/08/17 07:45 97.2 69 20 144/68 95 Nasal Cannula 3.0 11/08/17 06:56 70 20 100 Nasal Cannula 3.0 32 11/08/17 06:44 36 11/08/17 06:44 75 18 100 Nasal Cannula 4.0 32 11/08/17 06:44 Nasal Cannula 3.0 32 11/08/17 06:44 100 Nasal Cannula 4.0 36 11/08/17 04:12 69 11/08/17 04:00 97.0 90 20 144/75 95 Nasal Cannula 3.0 11/08/17 03:18 Nasal Cannula 11/08/17 03:17 Nasal Cannula 11/08/17 00:00 97.9 77 22 149/61 99 Nasal Cannula 3.0 11/07/17 23:51 72 11/07/17 23:25 64 20 100 Nasal Cannula 3.0 32 11/07/17 23:13 32 11/07/17 23:11 64 20 100 Nasal Cannula 3.0 32 11/07/17 21:08 75 152/59 11/07/17 21:07 152/59 11/07/17 20:00 98.2 75 20 156/59 97 Nasal Cannula 3.0 11/07/17 19:56 79 11/07/17 19:44 75 20 99 Nasal Cannula 3.0 28 11/07/17 19:33 Nasal Cannula 3.0 28 11/07/17 19:33 75 20 99 Nasal Cannula 3.0 28 11/07/17 19:33 28 11/07/17 19:32 99 Nasal Cannula 3.0 28 11/07/17 17:29 75 156/55 11/07/17 16:00 74 11/07/17 16:00 97.7 75 20 156/55 99 Nasal Cannula 3.0 11/07/17 15:46 28 11/07/17 15:46 75 18 99 Nasal Cannula 2.0 28 11/07/17 15:41 74 18 94 Nasal Cannula 2.0 28 11/07/17 12:00 77 11/07/17 12:00 98.2 76 19 164/75 98 Nasal Cannula 3.0 11/07/17 11:28 80 18 100 Nasal Cannula 2.0 28 11/07/17 11:28 28 11/07/17 11:25 73 18 100 Nasal Cannula 3.0 32 11/07/17 11:21 73 18 100 Nasal Cannula 3.0 32 Intake and Output 11/07/17 11/08/17 19:00 07:00 Intake Total 475.000 ml 305.140 ml Output Total 900 ml 1200 ml Balance -425.000 ml -894.860 ml IV Total 475.000 ml 305.140 ml Output Urine Total 900 ml 1200 ml # Bowel Movements 1 4 Laboratory Tests Test 11/08/17 05:50 White Blood Count 14.1 K/UL (4.8-10.8) H Red Blood Count 3.61 M/UL (4.20-5.40) L Hemoglobin 11.1 G/DL (12.0-16.0) L Hematocrit 32.2 % (37.0-47.0) L Mean Corpuscular Volume 89 FL (80-99) Mean Corpuscular Hemoglobin 30.7 PG (27.0-31.0) Mean Corpuscular Hemoglobin Concent 34.4 G/DL (32.0-36.0) Red Cell Distribution Width 14.6 % (11.6-14.8) Platelet Count 202 K/UL (150-450) Mean Platelet Volume 6.9 FL (6.5-10.1) Neutrophils (%) (Auto) 83.2 % (45.0-75.0) H Lymphocytes (%) (Auto) 9.2 % (20.0-45.0) L Monocytes (%) (Auto) 4.5 % (1.0-10.0) Eosinophils (%) (Auto) 2.6 % (0.0-3.0) Basophils (%) (Auto) 0.5 % (0.0-2.0) Sodium Level 143 MMOL/L (136-145) Potassium Level 4.1 MMOL/L (3.5-5.1) Chloride Level 105 MMOL/L (98-107) Carbon Dioxide Level 33 MMOL/L (21-32) H Anion Gap 5 mmol/L (5-15) Blood Urea Nitrogen 36 mg/dL (7-18) H Creatinine 1.7 MG/DL (0.55-1.30) H Estimat Glomerular Filtration Rate mL/min (>60) Glucose Level 221 MG/DL (74-106) #H Calcium Level 9.4 MG/DL (8.5-10.1) Magnesium Level 2.3 MG/DL (1.8-2.4) Pro-B-Type Natriuretic Peptide 09567 pg/mL (0-125) H Height (Feet): 5 Height (Inches): 2.00 Weight (Pounds): 201 General Appearance: WD/WN, no apparent distress, alert Cardiovascular: normal rate Respiratory/Chest: normal breath sounds, no respiratory distress Abdominal Exam: normal bowel sounds, non tender, soft Extremities: normal range of motion, non-tender Yolanda Donald N.P. Nov 08, 2017 10:11
[2017-11-08 12:00] VITALS: BP 148/55
[2017-11-08] MEDS ORDERED: Levemir Flexpen SUBQ SCH (12:00)
[2017-11-08] MEDS ORDERED: PROTONIX40 MG ORAL (12:25)
[2017-11-08] MEDS ORDERED: MIRALAX17 G2 ORAL (12:25)
[2017-11-08] MEDS ORDERED: AMLODIPINE BESYL5 MG ORAL (12:25)
[2017-11-08] MEDS ORDERED: FUROSEMIDE40 MG ORAL (12:26)
[2017-11-08] MEDS ORDERED: DUONEB 0.5-3(2.53 ML HHN (12:26)
[2017-11-08] MEDS ORDERED: NOVOLOG100 UNIT/4 SQ (12:26)
[2017-11-08] MEDS ORDERED: COLACE100 MG ORAL (12:26)
[2017-11-08] MEDS ORDERED: LABETALOL HCL200 MG ORAL (12:27)
[2017-11-08] MEDS ORDERED: LEVEMIR FL100 UNIT/1 SUBQ (12:27)
[2017-11-08] MEDS ORDERED: LACTULOSE20 GM/301 ORAL (12:27)
--- NOTE | 2017-11-08 13:50 | General Progress Note ---
Assessment/Plan Assessment/Plan Resp Faliure - stable Avoiding Narcotics + Anxiolytics. DW pt. Needs SNF for PT. Stable for SNF. Subjective Allergies: Coded Allergies: No Known Allergies (Verified , 09/30/07) Subjective No new c/o. On tele floor. Objective Last 24 Hour Vital Signs Date Time Temp Pulse Resp B/P (MAP) Pulse Ox O2 Delivery O2 Flow Rate FiO2 11/08/17 12:00 97.4 64 20 148/55 95 Nasal Cannula 3.0 11/08/17 11:18 66 20 99 Nasal Cannula 3.0 32 11/08/17 11:08 66 18 99 Nasal Cannula 3.0 32 11/08/17 11:08 32 11/08/17 08:27 144/68 11/08/17 08:26 69 144/68 11/08/17 08:26 69 144/68 11/08/17 08:02 67 11/08/17 07:45 97.2 69 20 144/68 95 Nasal Cannula 3.0 11/08/17 06:56 70 20 100 Nasal Cannula 3.0 32 11/08/17 06:44 36 11/08/17 06:44 75 18 100 Nasal Cannula 4.0 32 11/08/17 06:44 Nasal Cannula 3.0 32 11/08/17 06:44 100 Nasal Cannula 4.0 36 11/08/17 04:12 69 11/08/17 04:00 97.0 90 20 144/75 95 Nasal Cannula 3.0 11/08/17 03:18 Nasal Cannula 11/08/17 03:17 Nasal Cannula 11/08/17 00:00 97.9 77 22 149/61 99 Nasal Cannula 3.0 11/07/17 23:51 72 11/07/17 23:25 64 20 100 Nasal Cannula 3.0 32 11/07/17 23:13 32 11/07/17 23:11 64 20 100 Nasal Cannula 3.0 32 11/07/17 21:08 75 152/59 11/07/17 21:07 152/59 11/07/17 20:00 98.2 75 20 156/59 97 Nasal Cannula 3.0 11/07/17 19:56 79 11/07/17 19:44 75 20 99 Nasal Cannula 3.0 28 11/07/17 19:33 Nasal Cannula 3.0 28 11/07/17 19:33 75 20 99 Nasal Cannula 3.0 28 11/07/17 19:33 28 11/07/17 19:32 99 Nasal Cannula 3.0 28 11/07/17 17:29 75 156/55 11/07/17 16:00 74 11/07/17 16:00 97.7 75 20 156/55 99 Nasal Cannula 3.0 11/07/17 15:46 28 11/07/17 15:46 75 18 99 Nasal Cannula 2.0 28 11/07/17 15:41 74 18 94 Nasal Cannula 2.0 28 Intake and Output 11/07/17 11/08/17 19:00 07:00 Intake Total 475.000 ml 305.140 ml Output Total 900 ml 1200 ml Balance -425.000 ml -894.860 ml IV Total 475.000 ml 305.140 ml Output Urine Total 900 ml 1200 ml # Bowel Movements 1 4 Laboratory Tests 11/08/17 05:50: White Blood Count 14.1H, Red Blood Count 3.61L, Hemoglobin 11.1L, Hematocrit 32.2L, Mean Corpuscular Volume 89, Mean Corpuscular Hemoglobin 30.7, Mean Corpuscular Hemoglobin Concent 34.4, Red Cell Distribution Width 14.6, Platelet Count 202, Mean Platelet Volume 6.9, Neutrophils (%) (Auto) 83.2H, Lymphocytes ( %) (Auto) 9.2L, Monocytes (%) (Auto) 4.5, Eosinophils (%) (Auto) 2.6, Basophils (%) (Auto) 0.5, Sodium Level 143, Potassium Level 4.1, Chloride Level 105, Carbon Dioxide Level 33H, Anion Gap 5, Blood Urea Nitrogen 36H, Creatinine 1.7H , Estimat Glomerular Filtration Rate , Glucose Level 221#H, Calcium Level 9.4, Magnesium Level 2.3, Pro-B-Type Natriuretic Peptide 57906Q Height (Feet): 5 Height (Inches): 2.00 Weight (Pounds): 201 Objective CV RR Lungs B wheezes Abd SNT. BS + E No CCE ANU DURAND Nov 08, 2017 13:50
[2017-11-08] MEDS ORDERED: NS 275ml ONE (15:52)
[2017-11-08] MEDS ORDERED: D5W 275ml ONE (15:52)
[2017-11-08] MEDS ORDERED: Tubing IV Secondary IV ONE ×2 (15:52)
--- NOTE | 2017-11-09 14:06 | Diagnostic Imaging Report ---
Indications: Dysphagia Technique: Patient ingested multiple substances under the supervision of speech pathology. Video fluoroscopic recording performed. Total fluoroscopy time 159 seconds. Total dose area product 0.77985 mGycm2 Comparison: none Findings: There is trace penetration of thin liquid barium was ingested via cup. No aspiration. Ingestion of either substances demonstrates no evidence of aspiration or penetration. Slightly delayed initiation of deglutition, no significant delayed pooling. Impression: Positive for penetration of thin liquid barium. No definite aspiration Please refer to speech pathology report for more detailed analysis
--- NOTE | 2017-11-09 18:03 | Discharge Summary ---
Discharge Summary Hospital Course Date of Admission Oct 29, 2017 at 01:15 Date of Discharge Nov 08, 2017 at 15:53 Admitting Diagnosis HYPOXIA HPI Marilu Lobo is a 77 year old female who was admitted on Oct 29, 2017 at 01:15 for Hypoxia Hospital Course [id number] Discharge Discharge Disposition Patient was discharged to SNF/Subacute Facility(03) Discharge Diagnoses: Kathleen Bryant NP Nov 09, 2017 18:03
--- NOTE | 2017-11-10 07:15 | Discharge Summary 2 SIG ---
DATE OF ADMISSION: 10/29/2017 DATE OF DISCHARGE: 11/08/2017 CONSULTANTS: 1. Jose F Benitez M.D. 2. Fabian Brooks M.D. 3. Latrell Ortega M.D. BRIEF HOSPITAL COURSE: The patient is a 77-year-old female who was brought in by paramedics from home. The patient was just discharged from [facility]. On evaluation at ED, x-ray showed bilateral infiltrates. ABG showed respiratory acidosis and hypoxia. She was orally intubated and was admitted to ICU. She was followed by Dr. Benitez. The patient was given pulmonary support and was started on IV vancomycin and cefepime. She was extubated on 10/31/2017; however, developed respiratory failure, and ER doctor was called, the patient was then re-intubated and was transferred to ICU. She was finally able to be extubated on 11/01/2017. Dr. Brooks was consulted. She had elevated LFTs. She was started on diet. Blood culture did not isolate any growth. Influenza was negative. Sputum showed normal respiratory leti. She was given Lasix and was placed on subcutaneous heparin for DVT prophylaxis. Renal ultrasound showed negative hydronephrosis. She underwent video swallow that showed no definite aspiration, and subsequent repeat chest x-ray had been unchanged. Anemia was stable. She had weakness on the right arm. Venous duplex was negative for DVT. She was given PT and OT and was continued on aspirin. She was eventually discharged to senior care. FINAL DIAGNOSES: 1. Acute respiratory failure secondary to pneumonia requiring intubation, status post extubation. 2. Elevated liver transaminases, resolved. 3. Respiratory acidosis. 4. Chronic renal failure. 5. Severe protein-calorie malnutrition. 6. Hyponatremia. 7. Thrombocytosis. DISPOSITION: The patient was discharged to [facility]. DISCHARGE MEDICATIONS: Refer to med list. Mic Maynard M.D. I have been assigned to dictate discharge summary on this account and I was not involved in the patient's management. Kathleen Bryant N.P. DR: TUNDE JOB#: [id number] CC:
--- NOTE | 2017-11-13 13:18 | Diagnostic Imaging Report ---
APPROVED REPORT CPT Code: 63839 Present Symptoms Upper Extremity Edema: Right RIGHT UPPER EXTREMITY: Venous imaging reveals patency of the internal jugular, subclavian, axillary and brachial veins. Doppler indicates normal spontaneous flow within these venous segments. SUPERFICIAL VENOUS SYSTEM: Imaging reveals acute thrombus in the right cephalic vein at upper arm and forearm level. Imaging also reveals patency of the right basilic vein.
== END 2017-11-08 15:53 | DRG 871 ==
LOC: EDBD 00:03 → EDUNIT# 00:03 → EMR 00:30 → ICU 01:15 → EDBEDREQSVC 01:21 → EDBEDREQ 03:48 → 2E 10-30 16:45 → ICU 10-31 09:15 → 2W 11-02 01:14 → 2E 11-06 16:10
PROC: 5A1935Z Respiratory Ventilation, Less than 24 Consecutive Hours (ICD-10-PCS; principal; 2017-10-29)
PROC: 0BH17EZ Insertion of Endotracheal Airway into Trachea, Via Natural or Artificial Opening (ICD-10-PCS; principal; 2017-10-29)
PROC: 5A1945Z Respiratory Ventilation, 24-96 Consecutive Hours (ICD-10-PCS; 2017-10-31)
PROC: 0BH17EZ Insertion of Endotracheal Airway into Trachea, Via Natural or Artificial Opening (ICD-10-PCS; 2017-10-31)
DX: A41.9 Sepsis, unspecified organism (principal); J18.9 Pneumonia, unspecified organism; E43 Unspecified severe protein-calorie malnutrition; J96.02 Acute respiratory failure with hypercapnia; J96.01 Acute respiratory failure with hypoxia; I13.0 Hypertensive heart and chronic kidney disease with heart failure and stage 1 through stage 4 chronic kidney disease, or unspecified chronic kidney disease; E87.2 Acidosis; E11.22 Type 2 diabetes mellitus with diabetic chronic kidney disease; I50.9 Heart failure, unspecified; E87.1 Hypo-osmolality and hyponatremia; N18.9 Chronic kidney disease, unspecified; Z68.36 Body mass index [BMI] 36.0-36.9, adult; D64.9 Anemia, unspecified; D47.3 Essential (hemorrhagic) thrombocythemia; Z85.3 Personal history of malignant neoplasm of breast; R62.7 Adult failure to thrive; R53.1 Weakness
CPT/HCPCS: 31500; 36415; 36600; 71045; 74230; 76775; 80048; 80053; 80202; 81003; 82248; 82378; 82550; 82553; 82607; 82728; 82746; 82803; 82962; 83540; 83550; 83605; 83735; 83880; 84100; 84439; 84443; 84478; 84484; 85007; 85025; 85044; 85610; 85730; 86710; 86850; 86900; 86901; 86920; 87040; 87070; 87081; 87205; 93005; 93306; 93970; 93971; 94002; 94003; 94640; 94664; 94760; J1815; J7620; S5561